=== PATIENT | female | born 1950 | race Caucasian/White ===

== ENCOUNTER → 2018-06-04 12:38 | Outpatient (CLI) | payer MEDICARE, SELFPAY ==
--- NOTE | 2018-06-04 | DI.MG.S_ITS ---
BILATERAL DIGITAL SCREENING MAMMOGRAM 3D/2D WITH CAD: 06/04/2018 CLINICAL: Routine screening. Comparison is made to exam dated: 05/10/2004 [facility]. The tissue of both breasts is heterogeneously dense. This may lower the sensitivity of mammography. Current study was also evaluated with a Computer Aided Detection (CAD) system. No significant masses, calcifications, or other findings are seen in either breast. There has been no significant interval change. IMPRESSION: NEGATIVE There is no mammographic evidence of malignancy. A 1 year screening mammogram is recommended. This exam was interpreted at Station ID: [id number]. NOTE: For mammograms, a report in lay terms will be sent to the patient. Approximately 15% of breast malignancies will not be visualized mammographically. In the management of a palpable breast mass, a negative mammogram must not discourage biopsy of a clinically suspicious lesion. Electronically Signed By: Wade peter/esme:06/04/2018 16:50:03 letter sent: Normal Exam ACR BI-RADS Category 1: Negative [id number]
== END ==
PROVIDERS: PCP Physician Assistant; Visit Provider Physician Assistant
DX: Z12.31 Encounter for screening mammogram for malignant neoplasm of breast (principal); M85.852 Other specified disorders of bone density and structure, left thigh; Z78.0 Asymptomatic menopausal state; Z85.6 Personal history of leukemia
CPT/HCPCS: 77063; 77067; 77080

== ENCOUNTER 2018-10-26 10:30 | Outpatient (RCR) | payer MEDICARE, SELFPAY ==
--- NOTE | 2018-05-20 17:00 | PT.OPPOC ---
Current Diagnoses Pain in right arm (05/20/18) Provider Visit Care Team Role Provider Type Marine Kraus PA-C Attending Provider Physician Primary Care Provider Specialty: Internal Medicine Address: [address] [place] [address], [facility] Email: Plan Of Care PT-OP-T Assessment and Plan Start: 05/20/18 09:52 Freq: Status: Active Protocol: Document 05/20/18 10:06 DONA (Rec: 05/20/18 10:27 DONA [id number]) Physical Therapy Assessment Rehab Potential Rehabilitation Potential Good Evaluation Complexity Number of Personal Factors/Comorbidities 1-2 Number of Body Systems Impaired 1-2 Clinical Presentation at Evaluation Stable Impairments Impairments Functional Activities Pain Posture ROM Soft Tissue Mobility Strength Goals Four Impairment Impaired shoulder strength Judicial Administrative Assistant Goal (LTG) Patient will exhibit shoulder flexors/abductors, rotators with at least 4/5 fo functional overhead reaching and lifting use. LTG Duration 4 wks Three Impairment Impaired shoulder Flexion/ABD/ ER ROM Jail Goal (LTG) Patient will exhibit normal shoulder ROM to improve functional mobility with no discomfort. LTG Duration 4 wks Two Impairment No HEP in place Jail Goal (LTG) Patient will learn and comply to HEP independently. LTG Duration 4 wks One Impairment Quich Dash UE functional scale 25 Judicial Administrative Assistant Goal (LTG) Patient will have Quick Dash results of less than 10 LTG Duration 4 wks Assessment Summary Assessment Pleasant 67 y/o F patient with a referring diagnosis of right arm pain. Today patient exhibits right shoulder LOM and weakness with tenderness over right scapular region. Specials tests reveals positive with Belly press and Lift off tests, Hawkin's, Empty can's and Yegarson's test. Patient also exhibit rounded and FWD head posture. Patient condition in my opinion is may be due to rotator cuff tendonitis. Due to patient shoulder dysfunction, patient unable to perform overhead movement and lifting. Patient would benefit with skilled PT to address the aforementioned issues. Physical Therapy Plan Frequency and Duration Frequency of Treatment 2x/Week Duration of Treatment 8 wks Plan of Care Start Date 05/20/18 Plan of Care End Date 07/15/18 Therapeutic Interventions Therapeutic Interventions Home Exercise Program Joint Mobilizations Manual Therapy Patient/Caregiver Education Self-Care/Home Management Soft Tissue Mobilization Taping Therapeutic Exercises Modalities Cold Pack/Ice Massage Electric Stimulation Hot Packs Ultrasound Next Visit Focus/Plan Next Note Type Treatment Note Next Visit Plan Provide HEP with images Plan of Care Dates Plan of Care Start Date 05/20/18 Plan of Care End Date 07/15/18 Please Sign and Return: I have reviewed this Plan of Care and certify that the skilled therapy services above are required to meet the patient?s needs. Physician Signature Date Printed Name and Credentials Clinical Instructor Signature Printed Name and Credentials
--- NOTE | 2018-05-20 17:00 | PT.OIE ---
Current Diagnoses Pain in right arm (05/20/18) Provider Visit Care Team Role Provider Type Marine Kraus PA-C Attending Provider Physician Primary Care Provider Specialty: Internal Medicine Address: [address] [place] [address], [facility] Email: Physical Therapy Initial Evaluation PT-OP-A Visit Information Start: 05/20/18 09:52 Freq: Status: Active Protocol: Document 05/20/18 10:06 EA (Rec: 05/20/18 10:27 EA [id number]) Out-Patient Physical Therapy Visit Information Visit Information Visit Type Initial Evaluation Visit Start Time 09:00 Visit Stop Time 09:35 Total Visit Minutes 35 Visit Number 1 Number of OCCUPATIONAL HEALTH PHYSIOTHERAPIST Visits 0 Evaluation Information Evaluation Date 05/20/18 PT-OP-B Current Condition Start: 05/20/18 09:52 Freq: Status: Active Protocol: Document 05/20/18 10:06 EA (Rec: 05/20/18 10:27 EA [id number]) Current Condition History of Current Condition Onset Date November 2016 Current Complaints Right shoulder/arm pain History of Current Condition 2017 of lifting and moving injury and had formal PT at on January 2017 which resolved by 90%. Right Shoulder arm pain re-occurs last August of 2017 with no known injury and managed pain with OTC pain medication and biofreeze. Episodes of noturnal pain whenever patient slept to right side. Prior Treatments and Tests Formal PT at : 2016 with similar condition. Future Testing and Treatments Planned Ongoing cancer treament monthly scheduled. Hepa B- ongoing treatment. Treatment Goals Patient/Caregiver Goals Patient wants to completely eliminate pain Patient would like to know more HEP to pevent the recurrence Prior Functional Status Baseline Function- ADL's Independent Baseline Function- Mobility Independent Baseline Function- Work/School Retired Current Functional Impairments (Reported) Functional Limitations- ADL's Indep but difficulty with right hand overhead and lifting motion Functional Limitations- Mobility/Gait Indep Functional Limitations- Work/School Retired Functional Limitations- Recreation/ unable due to pain Hobbies PT-OP-C Subjective Start: 05/20/18 09:52 Freq: Status: Active Protocol: Document 05/20/18 10:06 EA (Rec: 05/20/18 10:27 EA [id number]) OP-PT Subjective Patient Comments Patient Comments I need to help my right arm when im reaching my opposite shoulder and I can't fully reach my back due to pain. Patient Reported Progress Same Patient Questionnaires Quick Dash- Upper Extremity Quick Dash UE Score 25 Quick Dash UE Impairment 20 to 39% Impaired (Score 20- 39) PT-OP-E Functional Tests Start: 05/20/18 09:52 Freq: Status: Active Protocol: Document 05/20/18 10:06 EA (Rec: 05/20/18 10:27 EA [id number]) Functional Tests Apley's Scratch Test Action 1: The subject is instructed to touch the opposite shoulder with his/her hand. This motion checks Glenohumeral adduction, internal rotation , horizontal adduction and scapular protraction Action 2: The subject is instructed to place his/her arm overhead and reach behind the neck to touch his/her upper back. This motion checks Glenohumeral abduction, external rotation and scapular upward rotation and elevation. Action 3: The subject puts his/her hand on the lower back and reaches upward as far as possible. This motion checks glenohumeral adduction, internal rotation and scapular retraction with downward rotation Action 1- Left opposite scap Action 1- Right top of opposite shoulder Action 2- Left T4 Action 2- Right T1 Action 3- Left T6 Action 3- Right T2 PT-OP-F Manual Assessment Start: 05/20/18 09:52 Freq: Status: Active Protocol: Document 05/20/18 10:06 EA (Rec: 05/20/18 10:27 EA [id number]) Manual Assessments Soft Tissue Assessment Soft Tissue Mobility Assessment Pectorals, anterior capsule , neck flexors, traps, shoulder internal rotators tightness Joint Mobility Assessment Joint Mobility Assessment Hypo to right GH joint PT-OP-J Posture/Palpation/Skin Start: 05/20/18 09:52 Freq: Status: Active Protocol: Document 05/20/18 10:06 EA (Rec: 05/20/18 10:27 EA [id number]) Posture Evaluation Position Standing Evaluation View ant/lat Head/C-Spine Posture Forward Head Arm Posture (L) Internally Rotated (R) Internally Rotated Palpation Assessment Location One Palpation Location Right INFRA,SUPRA, anterior shoulder grade 2/4 tenderness Palpation Findings Soft Tissue Tightness Tenderness PT-OP-K Range of Motion Start: 05/20/18 09:52 Freq: Status: Active Protocol: Document 05/20/18 10:06 EA (Rec: 05/20/18 10:27 EA [id number]) Shoulder Goniometric Range of Motion Shoulder Measured in Degrees Right Active Testing Position Standing Flexion 165 Extension 60 Abduction 165 External Rotation at 90 degrees 70 Abduction Internal Rotation Behind Back (text) T12 PT-OP-L Special Tests Start: 05/20/18 09:52 Freq: Status: Active Protocol: Document 05/20/18 10:06 EA (Rec: 05/20/18 10:27 EA [id number]) Special Tests Shoulder Special Tests Elevation Impingement Test Results negative Drop Arm Rotator Cuff Test Results Negative Aguayo Facundo Impingement Test Results Positive Lift-Off Rotator Cuff Test Results positive Empty Can Test Results postive Belly Press Test Results positive PT-OP-M Strength Start: 05/20/18 09:52 Freq: Status: Active Protocol: Document 05/20/18 17:00 EA (Rec: 05/24/18 10:24 EA [id number]) Shoulder Strength Shoulder Manual Muscle Testing Right Flexion 4- Good- Extension 4- Good- Abduction (C5) 4- Good- Adduction 4 Good External Rotation 3+ Fair+ Internal Rotation 4- Good- PT-OP-Q Treatments Start: 05/20/18 09:52 Freq: Status: Active Protocol: Document 05/20/18 10:06 EA (Rec: 05/20/18 10:27 EA [id number]) Self-Care/Home Management Treatment Education Patient Education Body Mechanics Home Exercise Program Joint Protection Pain Management Posture PT-OP-T Assessment and Plan Start: 05/20/18 09:52 Freq: Status: Active Protocol: Document 05/20/18 10:06 EA (Rec: 05/20/18 10:27 EA [id number]) Physical Therapy Assessment Rehab Potential Rehabilitation Potential Good Evaluation Complexity Number of Personal Factors/Comorbidities 1-2 Number of Body Systems Impaired 1-2 Clinical Presentation at Evaluation Stable Impairments Impairments Functional Activities Pain Posture ROM Soft Tissue Mobility Strength Goals Four Impairment Impaired shoulder strength Assisted Goal (LTG) Patient will exhibit shoulder flexors/abductors, rotators with at least 4/5 fo functional overhead reaching and lifting use. LTG Duration 4 wks Three Impairment Impaired shoulder Flexion/ABD/ ER ROM Assisted Goal (LTG) Patient will exhibit normal shoulder ROM to improve functional mobility with no discomfort. LTG Duration 4 wks Two Impairment No HEP in place Bolt Sawyer Goal (LTG) Patient will learn and comply to HEP independently. LTG Duration 4 wks One Impairment Quich Dash UE functional scale 25 Assisted Goal (LTG) Patient will have Quick Dash results of less than 10 LTG Duration 4 wks Assessment Summary Assessment Pleasant 67 y/o F patient with a referring diagnosis of right arm pain. Today patient exhibits right shoulder LOM and weakness with tenderness over right scapular region. Specials tests reveals positive with Belly press and Lift off tests, Hawkin's, Empty can's and Yegarson's test. Patient also exhibit rounded and FWD head posture. Patient condition in my opinion is may be due to rotator cuff tendonitis. Due to patient shoulder dysfunction, patient unable to perform overhead movement and lifting. Patient would benefit with skilled PT to address the aforementioned issues. Physical Therapy Plan Frequency and Duration Frequency of Treatment 2x/Week Duration of Treatment 8 wks Plan of Care Start Date 05/20/18 Plan of Care End Date 07/15/18 Therapeutic Interventions Therapeutic Interventions Home Exercise Program Joint Mobilizations Manual Therapy Patient/Caregiver Education Self-Care/Home Management Soft Tissue Mobilization Taping Therapeutic Exercises Modalities Cold Pack/Ice Massage Electric Stimulation Hot Packs Ultrasound Next Visit Focus/Plan Next Note Type Treatment Note Next Visit Plan Provide HEP with images
--- NOTE | 2018-05-26 14:37 | PT.OTN ---
Current Diagnoses Pain in right arm (05/26/18) Physical Therapy Treatment Note PT-OP-A Visit Information Start: 05/20/18 09:52 Freq: Status: Active Protocol: Document 05/26/18 14:23 EA (Rec: 05/26/18 14:30 EA [id number]) Out-Patient Physical Therapy Visit Information Visit Information Visit Type Treatment Note Visit Start Time 13:45 Visit Stop Time 14:30 Total Visit Minutes 45 Visit Number 2 PT-OP-B Current Condition Start: 05/20/18 09:52 Freq: Status: Active Protocol: Document 05/20/18 10:06 EA (Rec: 05/20/18 10:27 EA [id number]) Current Condition History of Current Condition Onset Date November 2016 Current Complaints Right shoulder/arm pain History of Current Condition 2017 of lifting and moving injury and had formal PT at on January 2017 which resolved by 90%. Right Shoulder arm pain re-occurs last August of 2017 with no known injury and managed pain with OTC pain medication and biofreeze. Episodes of noturnal pain whenever patient slept to right side. Prior Treatments and Tests Formal PT at : 2016 with similar condition. Future Testing and Treatments Planned Ongoing cancer treament monthly scheduled. Hepa B- ongoing treatment. Treatment Goals Patient/Caregiver Goals Patient wants to completely eliminate pain Patient would like to know more HEP to pevent the recurrence Prior Functional Status Baseline Function- ADL's Independent Baseline Function- Mobility Independent Baseline Function- Work/School Retired Current Functional Impairments (Reported) Functional Limitations- ADL's Indep but difficulty with right hand overhead and lifting motion Functional Limitations- Mobility/Gait Indep Functional Limitations- Work/School Retired Functional Limitations- Recreation/ unable due to pain Hobbies PT-OP-C Subjective Start: 05/20/18 09:52 Freq: Status: Active Protocol: Document 05/26/18 14:23 EA (Rec: 05/26/18 14:30 EA [id number]) OP-PT Subjective Patient Comments Patient Comments Pt reports complaint with HEP and pain is quite a bit better . Patient Reported Progress Improving PT-OP-E Functional Tests Start: 05/20/18 09:52 Freq: Status: Active Protocol: Document 05/20/18 10:06 EA (Rec: 05/20/18 10:27 EA [id number]) Functional Tests Apley's Scratch Test Action 1: The subject is instructed to touch the opposite shoulder with his/her hand. This motion checks Glenohumeral adduction, internal rotation , horizontal adduction and scapular protraction Action 2: The subject is instructed to place his/her arm overhead and reach behind the neck to touch his/her upper back. This motion checks Glenohumeral abduction, external rotation and scapular upward rotation and elevation. Action 3: The subject puts his/her hand on the lower back and reaches upward as far as possible. This motion checks glenohumeral adduction, internal rotation and scapular retraction with downward rotation Action 1- Left opposite scap Action 1- Right top of opposite shoulder Action 2- Left T4 Action 2- Right T1 Action 3- Left T6 Action 3- Right T2 PT-OP-F Manual Assessment Start: 05/20/18 09:52 Freq: Status: Active Protocol: Document 05/20/18 10:06 EA (Rec: 05/20/18 10:27 EA [id number]) Manual Assessments Soft Tissue Assessment Soft Tissue Mobility Assessment Pectorals, anterior capsule , neck flexors, traps, shoulder internal rotators tightness Joint Mobility Assessment Joint Mobility Assessment Hypo to right GH joint PT-OP-J Posture/Palpation/Skin Start: 05/20/18 09:52 Freq: Status: Active Protocol: Document 05/20/18 10:06 EA (Rec: 05/20/18 10:27 EA [id number]) Posture Evaluation Position Standing Evaluation View ant/lat Head/C-Spine Posture Forward Head Arm Posture (L) Internally Rotated (R) Internally Rotated Palpation Assessment Location One Palpation Location Right INFRA,SUPRA, anterior shoulder grade 2/4 tenderness Palpation Findings Soft Tissue Tightness Tenderness PT-OP-K Range of Motion Start: 05/20/18 09:52 Freq: Status: Active Protocol: Document 05/20/18 10:06 EA (Rec: 05/20/18 10:27 EA [id number]) Shoulder Goniometric Range of Motion Shoulder Measured in Degrees Right Active Testing Position Standing Flexion 165 Extension 60 Abduction 165 External Rotation at 90 degrees 70 Abduction Internal Rotation Behind Back (text) T12 PT-OP-L Special Tests Start: 05/20/18 09:52 Freq: Status: Active Protocol: Document 05/20/18 10:06 EA (Rec: 05/20/18 10:27 EA [id number]) Special Tests Shoulder Special Tests Elevation Impingement Test Results negative Drop Arm Rotator Cuff Test Results Negative Aguayo Facundo Impingement Test Results Positive Lift-Off Rotator Cuff Test Results positive Empty Can Test Results postive Belly Press Test Results positive PT-OP-M Strength Start: 05/20/18 09:52 Freq: Status: Active Protocol: Document 05/20/18 17:00 EA (Rec: 05/24/18 10:24 EA [id number]) Shoulder Strength Shoulder Manual Muscle Testing Right Flexion 4- Good- Extension 4- Good- Abduction (C5) 4- Good- Adduction 4 Good External Rotation 3+ Fair+ Internal Rotation 4- Good- PT-OP-Q Treatments Start: 05/20/18 09:52 Freq: Status: Active Protocol: Document 05/26/18 14:23 EA (Rec: 05/26/18 14:30 EA [id number]) Therapeutic Exercises Supine Exercises 1 Supine Exercise Name T-bar flexion Reps/Minutes x 15 reps x 2 sets Sidelying Exercises 2 Sidelying Exercise Name Horiz ABD Reps/Minutes x 15 reps x 2 1 Sidelying Exercise Name Shoulder abduction Side right Reps/Minutes x 15 reps x 2 Standing Exercises 1 Standing Exercise Name T-bar extension Reps/Minutes x 15 reps Manual Therapy Treatment Soft Tissue Mobilization 1 Body Location Right shoulder Mobilization Type Cross-Friction Rolling Sustained Pressure Intensity/Depth Deep Body Position Supine Joint Mobilizations 1 Joint Right GH Grade III Self-Care/Home Management Treatment Education Patient Education Home Exercise Program Other Education HEP with images is provided and explained PT-OP-R Modalities Start: 05/20/18 09:52 Freq: Status: Active Protocol: Document 05/26/18 14:23 EA (Rec: 05/26/18 14:30 EA [id number]) Electric Stimulation Electric Stimulation Interferential Current (IFC) Body Location right shoulder Duration (Minutes) 15 Intensity 11 Patient Position Supine Combined With Heat/Cold Hot Pack Ultrasound Therapy Treatment Right Anterior Shoulder Treatment Duration (minutes) 5 Patient Position Supine Frequency Setting (mHz) 1 Mode Setting Continuous Intensity Setting (w/cm2) 1.2 PT-OP-T Assessment and Plan Start: 05/20/18 09:52 Freq: Status: Active Protocol: Document 05/26/18 14:23 EA (Rec: 05/26/18 14:30 EA [id number]) Physical Therapy Assessment Assessment Summary Assessment Tolerated treatment well. HEP explained and showed good understanding. Physical Therapy Plan Next Visit Focus/Plan Next Note Type Treatment Note Next Visit Plan Cont with current plan.
--- NOTE | 2018-06-03 10:39 | PT.OTN ---
Current Diagnoses Pain in right arm (06/03/18) Physical Therapy Treatment Note PT-OP-A Visit Information Start: 05/20/18 09:52 Freq: Status: Active Protocol: Document 06/03/18 09:47 SAK (Rec: 06/03/18 10:39 SAK [id number]) Out-Patient Physical Therapy Visit Information Visit Information Visit Type Treatment Note Visit Start Time 09:45 Visit Stop Time 10:45 Total Visit Minutes 60 Visit Number 3 PT-OP-B Current Condition Start: 05/20/18 09:52 Freq: Status: Active Protocol: Document 05/20/18 10:06 EA (Rec: 05/20/18 10:27 EA [id number]) Current Condition History of Current Condition Onset Date November 2016 Current Complaints Right shoulder/arm pain History of Current Condition 2017 of lifting and moving injury and had formal PT at on January 2017 which resolved by 90%. Right Shoulder arm pain re-occurs last August of 2017 with no known injury and managed pain with OTC pain medication and biofreeze. Episodes of noturnal pain whenever patient slept to right side. Prior Treatments and Tests Formal PT at : 2016 with similar condition. Future Testing and Treatments Planned Ongoing cancer treament monthly scheduled. Hepa B- ongoing treatment. Treatment Goals Patient/Caregiver Goals Patient wants to completely eliminate pain Patient would like to know more HEP to pevent the recurrence Prior Functional Status Baseline Function- ADL's Independent Baseline Function- Mobility Independent Baseline Function- Work/School Retired Current Functional Impairments (Reported) Functional Limitations- ADL's Indep but difficulty with right hand overhead and lifting motion Functional Limitations- Mobility/Gait Indep Functional Limitations- Work/School Retired Functional Limitations- Recreation/ unable due to pain Hobbies PT-OP-C Subjective Start: 05/20/18 09:52 Freq: Status: Active Protocol: Document 06/03/18 09:47 SAK (Rec: 06/03/18 10:39 SAK [id number]) OP-PT Subjective Patient Comments Patient Comments upset stomach this am due to possibly eating something that had been sitting out for too long Patient Reported Progress Improving PT-OP-E Functional Tests Start: 05/20/18 09:52 Freq: Status: Active Protocol: Document 05/20/18 10:06 EA (Rec: 05/20/18 10:27 EA [id number]) Functional Tests Apley's Scratch Test Action 1: The subject is instructed to touch the opposite shoulder with his/her hand. This motion checks Glenohumeral adduction, internal rotation , horizontal adduction and scapular protraction Action 2: The subject is instructed to place his/her arm overhead and reach behind the neck to touch his/her upper back. This motion checks Glenohumeral abduction, external rotation and scapular upward rotation and elevation. Action 3: The subject puts his/her hand on the lower back and reaches upward as far as possible. This motion checks glenohumeral adduction, internal rotation and scapular retraction with downward rotation Action 1- Left opposite scap Action 1- Right top of opposite shoulder Action 2- Left T4 Action 2- Right T1 Action 3- Left T6 Action 3- Right T2 PT-OP-F Manual Assessment Start: 05/20/18 09:52 Freq: Status: Active Protocol: Document 05/20/18 10:06 EA (Rec: 05/20/18 10:27 EA [id number]) Manual Assessments Soft Tissue Assessment Soft Tissue Mobility Assessment Pectorals, anterior capsule , neck flexors, traps, shoulder internal rotators tightness Joint Mobility Assessment Joint Mobility Assessment Hypo to right GH joint PT-OP-J Posture/Palpation/Skin Start: 05/20/18 09:52 Freq: Status: Active Protocol: Document 05/20/18 10:06 EA (Rec: 05/20/18 10:27 EA [id number]) Posture Evaluation Position Standing Evaluation View ant/lat Head/C-Spine Posture Forward Head Arm Posture (L) Internally Rotated (R) Internally Rotated Palpation Assessment Location One Palpation Location Right INFRA,SUPRA, anterior shoulder grade 2/4 tenderness Palpation Findings Soft Tissue Tightness Tenderness PT-OP-K Range of Motion Start: 05/20/18 09:52 Freq: Status: Active Protocol: Document 05/20/18 10:06 EA (Rec: 05/20/18 10:27 EA [id number]) Shoulder Goniometric Range of Motion Shoulder Measured in Degrees Right Active Testing Position Standing Flexion 165 Extension 60 Abduction 165 External Rotation at 90 degrees 70 Abduction Internal Rotation Behind Back (text) T12 PT-OP-L Special Tests Start: 05/20/18 09:52 Freq: Status: Active Protocol: Document 05/20/18 10:06 EA (Rec: 05/20/18 10:27 EA [id number]) Special Tests Shoulder Special Tests Elevation Impingement Test Results negative Drop Arm Rotator Cuff Test Results Negative Aguayo Facundo Impingement Test Results Positive Lift-Off Rotator Cuff Test Results positive Empty Can Test Results postive Belly Press Test Results positive PT-OP-M Strength Start: 05/20/18 09:52 Freq: Status: Active Protocol: Document 05/20/18 17:00 EA (Rec: 05/24/18 10:24 EA [id number]) Shoulder Strength Shoulder Manual Muscle Testing Right Flexion 4- Good- Extension 4- Good- Abduction (C5) 4- Good- Adduction 4 Good External Rotation 3+ Fair+ Internal Rotation 4- Good- PT-OP-Q Treatments Start: 05/20/18 09:52 Freq: Status: Active Protocol: Document 06/03/18 09:47 SAK (Rec: 06/03/18 10:39 SAK [id number]) Therapeutic Exercises Supine Exercises 1 Supine Exercise Name T-bar flexion Reps/Minutes x 15 reps x 2 sets Sidelying Exercises 2 Sidelying Exercise Name Horiz ABD Reps/Minutes x 15 reps x 2 1 Sidelying Exercise Name Shoulder abduction Side right Reps/Minutes x 15 reps x 2 Standing Exercises rhomboid stretch Reps/Minutes 2x 30 T-bar extension Reps/Minutes 10x UT and levator scap stretch Reps/Minutes 2x30 ea 1 Standing Exercise Name T-bar extension Reps/Minutes x 15 reps Manual Therapy Treatment Soft Tissue Mobilization 1 Body Location Right shoulder Mobilization Type Cross-Friction Rolling Sustained Pressure Intensity/Depth Deep Body Position Supine Joint Mobilizations 1 Joint Right GH Grade III Self-Care/Home Management Treatment Education Patient Education Home Exercise Program PT-OP-R Modalities Start: 05/20/18 09:52 Freq: Status: Active Protocol: Document 06/03/18 09:47 SAK (Rec: 06/03/18 10:39 SAK [id number]) Electric Stimulation Electric Stimulation Interferential Current (IFC) Body Location right shoulder Duration (Minutes) 15 Intensity 11 Patient Position Supine Combined With Heat/Cold Hot Pack Ultrasound Therapy Treatment Right Anterior Shoulder Treatment Duration (minutes) 5 Patient Position Supine Frequency Setting (mHz) 1 Mode Setting Continuous Intensity Setting (w/cm2) 1.2 PT-OP-T Assessment and Plan Start: 05/20/18 09:52 Freq: Status: Active Protocol: Document 06/03/18 09:47 HOME (Rec: 06/03/18 10:39 [facility] [id number]) Physical Therapy Assessment Goals Four Impairment Impaired shoulder strength Engineering Recruiter Goal (LTG) Patient will exhibit shoulder flexors/abductors, rotators with at least 4/5 fo functional overhead reaching and lifting use. LTG Duration 4 wks Three Impairment Impaired shoulder Flexion/ABD/ ER ROM Engineering Recruiter Goal (LTG) Patient will exhibit normal shoulder ROM to improve functional mobility with no discomfort. LTG Duration 4 wks Two Impairment No HEP in place Engineering Recruiter Goal (LTG) Patient will learn and comply to HEP independently. LTG Duration 4 wks One Impairment Quich Dash UE functional scale 25 Engineering Recruiter Goal (LTG) Patient will have Quick Dash results of less than 10 LTG Duration 4 wks Assessment Summary Assessment Decreasing pain, poor compliance to HEP but demonstrated improved understanding after performing today. Physical Therapy Plan Frequency and Duration Frequency of Treatment 2x/Week Duration of Treatment 8 wks Plan of Care Start Date 05/20/18 Plan of Care End Date 07/15/18 Therapeutic Interventions Therapeutic Interventions Home Exercise Program Joint Mobilizations Manual Therapy Patient/Caregiver Education Self-Care/Home Management Soft Tissue Mobilization Taping Therapeutic Exercises Modalities Cold Pack/Ice Massage Electric Stimulation Hot Packs Ultrasound Next Visit Focus/Plan Next Note Type Treatment Note Next Visit Plan Continue PT to decrease patient's right shoulder pain, improve her ROM, strength, and function.
--- NOTE | 2018-06-11 14:46 | PT.OTN ---
Current Diagnoses Pain in right arm (06/11/18) Physical Therapy Treatment Note PT-OP-A Visit Information Start: 05/20/18 09:52 Freq: Status: Active Protocol: Document 06/11/18 13:45 AMB (Rec: 06/11/18 13:58 AMB [id number]) Out-Patient Physical Therapy Visit Information Visit Information Visit Type Treatment Note Visit Start Time 09:45 Visit Stop Time 10:45 Total Visit Minutes 60 Visit Number 4 PT-OP-B Current Condition Start: 05/20/18 09:52 Freq: Status: Active Protocol: Document 05/20/18 10:06 EA (Rec: 05/20/18 10:27 EA [id number]) Current Condition History of Current Condition Onset Date November 2016 Current Complaints Right shoulder/arm pain History of Current Condition 2017 of lifting and moving injury and had formal PT at on January 2017 which resolved by 90%. Right Shoulder arm pain re-occurs last August of 2017 with no known injury and managed pain with OTC pain medication and biofreeze. Episodes of noturnal pain whenever patient slept to right side. Prior Treatments and Tests Formal PT at : 2016 with similar condition. Future Testing and Treatments Planned Ongoing cancer treament monthly scheduled. Hepa B- ongoing treatment. Treatment Goals Patient/Caregiver Goals Patient wants to completely eliminate pain Patient would like to know more HEP to pevent the recurrence Prior Functional Status Baseline Function- ADL's Independent Baseline Function- Mobility Independent Baseline Function- Work/School Retired Current Functional Impairments (Reported) Functional Limitations- ADL's Indep but difficulty with right hand overhead and lifting motion Functional Limitations- Mobility/Gait Indep Functional Limitations- Work/School Retired Functional Limitations- Recreation/ unable due to pain Hobbies PT-OP-C Subjective Start: 05/20/18 09:52 Freq: Status: Active Protocol: Document 06/11/18 13:45 AMB (Rec: 06/11/18 13:58 AMB [id number]) OP-PT Subjective Patient Comments Patient Comments Pt attends with her dog. [place] good after last appointment. PT-OP-E Functional Tests Start: 05/20/18 09:52 Freq: Status: Active Protocol: Document 05/20/18 10:06 EA (Rec: 05/20/18 10:27 EA [id number]) Functional Tests Silasey's Scratch Test Action 1: The subject is instructed to touch the opposite shoulder with his/her hand. This motion checks Glenohumeral adduction, internal rotation , horizontal adduction and scapular protraction Action 2: The subject is instructed to place his/her arm overhead and reach behind the neck to touch his/her upper back. This motion checks Glenohumeral abduction, external rotation and scapular upward rotation and elevation. Action 3: The subject puts his/her hand on the lower back and reaches upward as far as possible. This motion checks glenohumeral adduction, internal rotation and scapular retraction with downward rotation Action 1- Left opposite scap Action 1- Right top of opposite shoulder Action 2- Left T4 Action 2- Right T1 Action 3- Left T6 Action 3- Right T2 PT-OP-F Manual Assessment Start: 05/20/18 09:52 Freq: Status: Active Protocol: Document 05/20/18 10:06 EA (Rec: 05/20/18 10:27 EA [id number]) Manual Assessments Soft Tissue Assessment Soft Tissue Mobility Assessment Pectorals, anterior capsule , neck flexors, traps, shoulder internal rotators tightness Joint Mobility Assessment Joint Mobility Assessment Hypo to right GH joint PT-OP-J Posture/Palpation/Skin Start: 05/20/18 09:52 Freq: Status: Active Protocol: Document 05/20/18 10:06 EA (Rec: 05/20/18 10:27 EA [id number]) Posture Evaluation Position Standing Evaluation View ant/lat Head/C-Spine Posture Forward Head Arm Posture (L) Internally Rotated (R) Internally Rotated Palpation Assessment Location One Palpation Location Right INFRA,SUPRA, anterior shoulder grade 2/4 tenderness Palpation Findings Soft Tissue Tightness Tenderness PT-OP-K Range of Motion Start: 05/20/18 09:52 Freq: Status: Active Protocol: Document 05/20/18 10:06 EA (Rec: 05/20/18 10:27 EA [id number]) Shoulder Goniometric Range of Motion Shoulder Measured in Degrees Right Active Testing Position Standing Flexion 165 Extension 60 Abduction 165 External Rotation at 90 degrees 70 Abduction Internal Rotation Behind Back (text) T12 PT-OP-L Special Tests Start: 05/20/18 09:52 Freq: Status: Active Protocol: Document 05/20/18 10:06 EA (Rec: 05/20/18 10:27 EA [id number]) Special Tests Shoulder Special Tests Elevation Impingement Test Results negative Drop Arm Rotator Cuff Test Results Negative Aguayo Facundo Impingement Test Results Positive Lift-Off Rotator Cuff Test Results positive Empty Can Test Results postive Belly Press Test Results positive PT-OP-M Strength Start: 05/20/18 09:52 Freq: Status: Active Protocol: Document 05/20/18 17:00 EA (Rec: 05/24/18 10:24 EA [id number]) Shoulder Strength Shoulder Manual Muscle Testing Right Flexion 4- Good- Extension 4- Good- Abduction (C5) 4- Good- Adduction 4 Good External Rotation 3+ Fair+ Internal Rotation 4- Good- PT-OP-Q Treatments Start: 05/20/18 09:52 Freq: Status: Active Protocol: Document 06/11/18 13:45 AMB (Rec: 06/11/18 14:01 AMB [id number]) Therapeutic Exercises Sidelying Exercises 3 Sidelying Exercise Name ER Resistance 2# Reps/Minutes 10 2 Sidelying Exercise Name Horiz ABD Reps/Minutes x 15 reps x 2 1 Sidelying Exercise Name Shoulder abduction Side right Reps/Minutes x 15 reps x 2 Sitting Exercises 1 Sitting Exercise Name mary Comments flexion/abduction Standing Exercises UT and levator scap stretch Reps/Minutes 2x30 ea Manual Therapy Treatment Soft Tissue Mobilization 1 Body Location Right shoulder Mobilization Type Cross-Friction Rolling Sustained Pressure Intensity/Depth Deep Body Position Supine Joint Mobilizations 1 Joint Right GH Grade III PT-OP-R Modalities Start: 05/20/18 09:52 Freq: Status: Active Protocol: Document 06/11/18 14:16 AMB (Rec: 06/11/18 14:31 AMB [id number]) Electric Stimulation Electric Stimulation Interferential Current (IFC) Body Location right shoulder Duration (Minutes) 15 Intensity 11 Patient Position Supine Combined With Heat/Cold Hot Pack Ultrasound Therapy Treatment Right Anterior Shoulder Treatment Duration (minutes) 5 Patient Position Supine Frequency Setting (mHz) 1 Mode Setting Continuous Intensity Setting (w/cm2) 1.2 PT-OP-T Assessment and Plan Start: 05/20/18 09:52 Freq: Status: Active Protocol: Document 06/11/18 13:45 AMB (Rec: 06/11/18 14:42 AMB [id number]) Physical Therapy Assessment Assessment Summary Assessment Pt with low level of pain today, she was able to tolerate ther ex well, although did fatigue quickly. Physical Therapy Plan Next Visit Focus/Plan Next Note Type Treatment Note Next Visit Plan Continue PT to decrease patient's right shoulder pain, improve her ROM, strength, and function.
--- NOTE | 2018-06-22 15:12 | PT.OTN ---
Current Diagnoses Pain in right arm (06/22/18) Physical Therapy Treatment Note PT-OP-A Visit Information Start: 05/20/18 09:52 Freq: Status: Active Protocol: Document 06/22/18 13:44 EA (Rec: 06/22/18 13:48 EA [id number]) Out-Patient Physical Therapy Visit Information Visit Information Visit Type Treatment Note Visit Start Time 13:45 Visit Stop Time 14:30 Total Visit Minutes 45 Visit Number 5 PT-OP-B Current Condition Start: 05/20/18 09:52 Freq: Status: Active Protocol: Document 05/20/18 10:06 EA (Rec: 05/20/18 10:27 EA [id number]) Current Condition History of Current Condition Onset Date November 2016 Current Complaints Right shoulder/arm pain History of Current Condition 2017 of lifting and moving injury and had formal PT at on January 2017 which resolved by 90%. Right Shoulder arm pain re-occurs last August of 2017 with no known injury and managed pain with OTC pain medication and biofreeze. Episodes of noturnal pain whenever patient slept to right side. Prior Treatments and Tests Formal PT at : 2016 with similar condition. Future Testing and Treatments Planned Ongoing cancer treament monthly scheduled. Hepa B- ongoing treatment. Treatment Goals Patient/Caregiver Goals Patient wants to completely eliminate pain Patient would like to know more HEP to pevent the recurrence Prior Functional Status Baseline Function- ADL's Independent Baseline Function- Mobility Independent Baseline Function- Work/School Retired Current Functional Impairments (Reported) Functional Limitations- ADL's Indep but difficulty with right hand overhead and lifting motion Functional Limitations- Mobility/Gait Indep Functional Limitations- Work/School Retired Functional Limitations- Recreation/ unable due to pain Hobbies PT-OP-C Subjective Start: 05/20/18 09:52 Freq: Status: Active Protocol: Document 06/22/18 13:44 EA (Rec: 06/22/18 13:48 EA [id number]) OP-PT Subjective Patient Comments Patient Comments Pt reports pain frequency is decreased and she has been compliant with HEP. PT-OP-E Functional Tests Start: 05/20/18 09:52 Freq: Status: Active Protocol: Document 05/20/18 10:06 EA (Rec: 05/20/18 10:27 EA [id number]) Functional Tests Silasey's Scratch Test Action 1: The subject is instructed to touch the opposite shoulder with his/her hand. This motion checks Glenohumeral adduction, internal rotation , horizontal adduction and scapular protraction Action 2: The subject is instructed to place his/her arm overhead and reach behind the neck to touch his/her upper back. This motion checks Glenohumeral abduction, external rotation and scapular upward rotation and elevation. Action 3: The subject puts his/her hand on the lower back and reaches upward as far as possible. This motion checks glenohumeral adduction, internal rotation and scapular retraction with downward rotation Action 1- Left opposite scap Action 1- Right top of opposite shoulder Action 2- Left T4 Action 2- Right T1 Action 3- Left T6 Action 3- Right T2 PT-OP-F Manual Assessment Start: 05/20/18 09:52 Freq: Status: Active Protocol: Document 05/20/18 10:06 EA (Rec: 05/20/18 10:27 EA [id number]) Manual Assessments Soft Tissue Assessment Soft Tissue Mobility Assessment Pectorals, anterior capsule , neck flexors, traps, shoulder internal rotators tightness Joint Mobility Assessment Joint Mobility Assessment Hypo to right GH joint PT-OP-J Posture/Palpation/Skin Start: 05/20/18 09:52 Freq: Status: Active Protocol: Document 05/20/18 10:06 EA (Rec: 05/20/18 10:27 EA [id number]) Posture Evaluation Position Standing Evaluation View ant/lat Head/C-Spine Posture Forward Head Arm Posture (L) Internally Rotated (R) Internally Rotated Palpation Assessment Location One Palpation Location Right INFRA,SUPRA, anterior shoulder grade 2/4 tenderness Palpation Findings Soft Tissue Tightness Tenderness PT-OP-K Range of Motion Start: 05/20/18 09:52 Freq: Status: Active Protocol: Document 05/20/18 10:06 EA (Rec: 05/20/18 10:27 EA [id number]) Shoulder Goniometric Range of Motion Shoulder Measured in Degrees Right Active Testing Position Standing Flexion 165 Extension 60 Abduction 165 External Rotation at 90 degrees 70 Abduction Internal Rotation Behind Back (text) T12 PT-OP-L Special Tests Start: 05/20/18 09:52 Freq: Status: Active Protocol: Document 05/20/18 10:06 EA (Rec: 05/20/18 10:27 EA [id number]) Special Tests Shoulder Special Tests Elevation Impingement Test Results negative Drop Arm Rotator Cuff Test Results Negative Aguayo Facundo Impingement Test Results Positive Lift-Off Rotator Cuff Test Results positive Empty Can Test Results postive Belly Press Test Results positive PT-OP-M Strength Start: 05/20/18 09:52 Freq: Status: Active Protocol: Document 05/20/18 17:00 EA (Rec: 05/24/18 10:24 EA [id number]) Shoulder Strength Shoulder Manual Muscle Testing Right Flexion 4- Good- Extension 4- Good- Abduction (C5) 4- Good- Adduction 4 Good External Rotation 3+ Fair+ Internal Rotation 4- Good- PT-OP-Q Treatments Start: 05/20/18 09:52 Freq: Status: Active Protocol: Document 06/22/18 13:44 EA (Rec: 06/22/18 13:48 EA [id number]) Cardio Equipment Upper Body Ergometer (UBE) Duration (Minutes) 6 Height 4 Therapeutic Exercises Supine Exercises 1 Supine Exercise Name T-bar flexion Reps/Minutes x 15 reps x 2 sets Sidelying Exercises 3 Sidelying Exercise Name ER Resistance 2# Reps/Minutes 10 2 Sidelying Exercise Name Horiz ABD Reps/Minutes x 15 reps x 2 Standing Exercises T-bar extension Resistance 2# Reps/Minutes 10x 2 sets 1 Standing Exercise Name T-bar flexion Resistance 1# Reps/Minutes x 15 reps Manual Therapy Treatment Soft Tissue Mobilization 1 Body Location Right shoulder Mobilization Type Cross-Friction Rolling Sustained Pressure Intensity/Depth Deep Body Position Supine PT-OP-R Modalities Start: 05/20/18 09:52 Freq: Status: Active Protocol: Document 06/22/18 13:44 EA (Rec: 06/22/18 13:48 EA [id number]) Electric Stimulation Electric Stimulation Interferential Current (IFC) Body Location right shoulder Duration (Minutes) 15 Intensity 11 Patient Position Supine Combined With Heat/Cold Hot Pack PT-OP-T Assessment and Plan Start: 05/20/18 09:52 Freq: Status: Active Protocol: Document 06/22/18 13:44 EA (Rec: 06/22/18 13:48 EA [id number]) Physical Therapy Assessment Assessment Summary Assessment Tolerated treatment well; noted improved activity with no discomfort. patient is progressing well. Physical Therapy Plan Next Visit Focus/Plan Next Note Type Treatment Note Next Visit Plan Continue PT to decrease patient's right shoulder pain, improve her ROM, strength, and function.
--- NOTE | 2018-06-29 15:05 | PT.OTN ---
Current Diagnoses Pain in right arm (06/29/18) Physical Therapy Treatment Note PT-OP-A Visit Information Start: 05/20/18 09:52 Freq: Status: Active Protocol: Document 06/29/18 14:56 EA (Rec: 06/29/18 15:04 EA [id number]) Out-Patient Physical Therapy Visit Information Visit Information Visit Type Treatment Note Visit Start Time 13:45 Visit Stop Time 14:40 Total Visit Minutes 55 Visit Number 6 PT-OP-B Current Condition Start: 05/20/18 09:52 Freq: Status: Active Protocol: Document 05/20/18 10:06 EA (Rec: 05/20/18 10:27 EA [id number]) Current Condition History of Current Condition Onset Date November 2016 Current Complaints Right shoulder/arm pain History of Current Condition 2017 of lifting and moving injury and had formal PT at on January 2017 which resolved by 90%. Right Shoulder arm pain re-occurs last August of 2017 with no known injury and managed pain with OTC pain medication and biofreeze. Episodes of noturnal pain whenever patient slept to right side. Prior Treatments and Tests Formal PT at : 2016 with similar condition. Future Testing and Treatments Planned Ongoing cancer treament monthly scheduled. Hepa B- ongoing treatment. Treatment Goals Patient/Caregiver Goals Patient wants to completely eliminate pain Patient would like to know more HEP to pevent the recurrence Prior Functional Status Baseline Function- ADL's Independent Baseline Function- Mobility Independent Baseline Function- Work/School Retired Current Functional Impairments (Reported) Functional Limitations- ADL's Indep but difficulty with right hand overhead and lifting motion Functional Limitations- Mobility/Gait Indep Functional Limitations- Work/School Retired Functional Limitations- Recreation/ unable due to pain Hobbies PT-OP-C Subjective Start: 05/20/18 09:52 Freq: Status: Active Protocol: Document 06/29/18 14:56 EA (Rec: 06/29/18 15:04 EA [id number]) OP-PT Subjective Patient Comments Patient Comments Pt reports right shoulder is quite sore today; states she ahs not doing her HEP as much as she is mourning to her that just 6 days ago. PT-OP-E Functional Tests Start: 05/20/18 09:52 Freq: Status: Active Protocol: Document 05/20/18 10:06 EA (Rec: 05/20/18 10:27 EA [id number]) Functional Tests Apley's Scratch Test Action 1: The subject is instructed to touch the opposite shoulder with his/her hand. This motion checks Glenohumeral adduction, internal rotation , horizontal adduction and scapular protraction Action 2: The subject is instructed to place his/her arm overhead and reach behind the neck to touch his/her upper back. This motion checks Glenohumeral abduction, external rotation and scapular upward rotation and elevation. Action 3: The subject puts his/her hand on the lower back and reaches upward as far as possible. This motion checks glenohumeral adduction, internal rotation and scapular retraction with downward rotation Action 1- Left opposite scap Action 1- Right top of opposite shoulder Action 2- Left T4 Action 2- Right T1 Action 3- Left T6 Action 3- Right T2 PT-OP-F Manual Assessment Start: 05/20/18 09:52 Freq: Status: Active Protocol: Document 05/20/18 10:06 EA (Rec: 05/20/18 10:27 EA [id number]) Manual Assessments Soft Tissue Assessment Soft Tissue Mobility Assessment Pectorals, anterior capsule , neck flexors, traps, shoulder internal rotators tightness Joint Mobility Assessment Joint Mobility Assessment Hypo to right GH joint PT-OP-J Posture/Palpation/Skin Start: 05/20/18 09:52 Freq: Status: Active Protocol: Document 05/20/18 10:06 EA (Rec: 05/20/18 10:27 EA [id number]) Posture Evaluation Position Standing Evaluation View ant/lat Head/C-Spine Posture Forward Head Arm Posture (L) Internally Rotated (R) Internally Rotated Palpation Assessment Location One Palpation Location Right INFRA,SUPRA, anterior shoulder grade 2/4 tenderness Palpation Findings Soft Tissue Tightness Tenderness PT-OP-K Range of Motion Start: 05/20/18 09:52 Freq: Status: Active Protocol: Document 05/20/18 10:06 EA (Rec: 05/20/18 10:27 EA [id number]) Shoulder Goniometric Range of Motion Shoulder Measured in Degrees Right Active Testing Position Standing Flexion 165 Extension 60 Abduction 165 External Rotation at 90 degrees 70 Abduction Internal Rotation Behind Back (text) T12 PT-OP-L Special Tests Start: 05/20/18 09:52 Freq: Status: Active Protocol: Document 05/20/18 10:06 EA (Rec: 05/20/18 10:27 EA [id number]) Special Tests Shoulder Special Tests Elevation Impingement Test Results negative Drop Arm Rotator Cuff Test Results Negative Aguayo Facundo Impingement Test Results Positive Lift-Off Rotator Cuff Test Results positive Empty Can Test Results postive Belly Press Test Results positive PT-OP-M Strength Start: 05/20/18 09:52 Freq: Status: Active Protocol: Document 05/20/18 17:00 EA (Rec: 05/24/18 10:24 EA [id number]) Shoulder Strength Shoulder Manual Muscle Testing Right Flexion 4- Good- Extension 4- Good- Abduction (C5) 4- Good- Adduction 4 Good External Rotation 3+ Fair+ Internal Rotation 4- Good- PT-OP-Q Treatments Start: 05/20/18 09:52 Freq: Status: Active Protocol: Document 06/29/18 14:56 EA (Rec: 06/29/18 15:04 EA [id number]) Cardio Equipment Upper Body Ergometer (UBE) Duration (Minutes) 6 Height 4 Therapeutic Exercises Supine Exercises 2 Supine Exercise Name shoulder adductor stretch with scapular stab. Reps/Minutes x 30sh x 2 1 Supine Exercise Name T-bar flexion Resistance 2 lbs Reps/Minutes x 15 reps x 2 sets Sidelying Exercises 3 Sidelying Exercise Name ER Resistance 2# Reps/Minutes 10 2 Sidelying Exercise Name Horiz ABD Resistance 2 lbs Reps/Minutes x 15 reps x 2 Sitting Exercises 1 Sitting Exercise Name Shoulder flexion, press, abduction Resistance 2 lbs Reps/Minutes x 12 reps Standing Exercises T-bar extension Resistance 2# Reps/Minutes 10x 2 sets UT and levator scap stretch Reps/Minutes 2x30 ea 1 Standing Exercise Name T-bar flexion Resistance 1# Reps/Minutes x 15 reps Manual Therapy Treatment Soft Tissue Mobilization 1 Body Location Right shoulder Mobilization Type Cross-Friction Rolling Sustained Pressure Intensity/Depth Deep Body Position Supine PT-OP-R Modalities Start: 05/20/18 09:52 Freq: Status: Active Protocol: Document 06/29/18 14:56 EA (Rec: 06/29/18 15:04 EA [id number]) Electric Stimulation Electric Stimulation Interferential Current (IFC) Body Location right shoulder Duration (Minutes) 15 Intensity 11 Patient Position Supine Combined With Heat/Cold Hot Pack PT-OP-T Assessment and Plan Start: 05/20/18 09:52 Freq: Status: Active Protocol: Document 06/29/18 14:56 EA (Rec: 06/29/18 15:04 EA [id number]) Physical Therapy Assessment Assessment Summary Assessment Shoulder adductor tightness noted. Patient tolerated sitted shoulder exercises mild shoulder substitution. Physical Therapy Plan Next Visit Focus/Plan Next Note Type Treatment Note Next Visit Plan Stretch shoulder adductors
--- NOTE | 2018-07-06 14:03 | PT.OTN ---
Current Diagnoses Pain in right arm (07/06/18) Physical Therapy Treatment Note PT-OP-A Visit Information Start: 05/20/18 09:52 Freq: Status: Active Protocol: Document 07/06/18 13:53 EA (Rec: 07/06/18 14:03 EA [id number]) Out-Patient Physical Therapy Visit Information Visit Information Visit Type Treatment Note Visit Start Time 13:00 Visit Stop Time 13:45 Total Visit Minutes 45 Visit Number 6 PT-OP-B Current Condition Start: 05/20/18 09:52 Freq: Status: Active Protocol: Document 05/20/18 10:06 EA (Rec: 05/20/18 10:27 EA [id number]) Current Condition History of Current Condition Onset Date November 2016 Current Complaints Right shoulder/arm pain History of Current Condition 2017 of lifting and moving injury and had formal PT at on January 2017 which resolved by 90%. Right Shoulder arm pain re-occurs last August of 2017 with no known injury and managed pain with OTC pain medication and biofreeze. Episodes of noturnal pain whenever patient slept to right side. Prior Treatments and Tests Formal PT at : 2016 with similar condition. Future Testing and Treatments Planned Ongoing cancer treament monthly scheduled. Hepa B- ongoing treatment. Treatment Goals Patient/Caregiver Goals Patient wants to completely eliminate pain Patient would like to know more HEP to pevent the recurrence Prior Functional Status Baseline Function- ADL's Independent Baseline Function- Mobility Independent Baseline Function- Work/School Retired Current Functional Impairments (Reported) Functional Limitations- ADL's Indep but difficulty with right hand overhead and lifting motion Functional Limitations- Mobility/Gait Indep Functional Limitations- Work/School Retired Functional Limitations- Recreation/ unable due to pain Hobbies PT-OP-C Subjective Start: 05/20/18 09:52 Freq: Status: Active Protocol: Document 07/06/18 13:53 EA (Rec: 07/06/18 14:03 EA [id number]) OP-PT Subjective Patient Comments Patient Comments Pt reports very mild discomfort only when shoulder is dangled on the cahir without armrest; states unable to perform HEP. PT-OP-E Functional Tests Start: 05/20/18 09:52 Freq: Status: Active Protocol: Document 05/20/18 10:06 EA (Rec: 05/20/18 10:27 EA [id number]) Functional Tests Apley's Scratch Test Action 1: The subject is instructed to touch the opposite shoulder with his/her hand. This motion checks Glenohumeral adduction, internal rotation , horizontal adduction and scapular protraction Action 2: The subject is instructed to place his/her arm overhead and reach behind the neck to touch his/her upper back. This motion checks Glenohumeral abduction, external rotation and scapular upward rotation and elevation. Action 3: The subject puts his/her hand on the lower back and reaches upward as far as possible. This motion checks glenohumeral adduction, internal rotation and scapular retraction with downward rotation Action 1- Left opposite scap Action 1- Right top of opposite shoulder Action 2- Left T4 Action 2- Right T1 Action 3- Left T6 Action 3- Right T2 PT-OP-F Manual Assessment Start: 05/20/18 09:52 Freq: Status: Active Protocol: Document 05/20/18 10:06 EA (Rec: 05/20/18 10:27 EA [id number]) Manual Assessments Soft Tissue Assessment Soft Tissue Mobility Assessment Pectorals, anterior capsule , neck flexors, traps, shoulder internal rotators tightness Joint Mobility Assessment Joint Mobility Assessment Hypo to right GH joint PT-OP-J Posture/Palpation/Skin Start: 05/20/18 09:52 Freq: Status: Active Protocol: Document 05/20/18 10:06 EA (Rec: 05/20/18 10:27 EA [id number]) Posture Evaluation Position Standing Evaluation View ant/lat Head/C-Spine Posture Forward Head Arm Posture (L) Internally Rotated (R) Internally Rotated Palpation Assessment Location One Palpation Location Right INFRA,SUPRA, anterior shoulder grade 2/4 tenderness Palpation Findings Soft Tissue Tightness Tenderness PT-OP-K Range of Motion Start: 05/20/18 09:52 Freq: Status: Active Protocol: Document 05/20/18 10:06 EA (Rec: 05/20/18 10:27 EA [id number]) Shoulder Goniometric Range of Motion Shoulder Measured in Degrees Right Active Testing Position Standing Flexion 165 Extension 60 Abduction 165 External Rotation at 90 degrees 70 Abduction Internal Rotation Behind Back (text) T12 PT-OP-L Special Tests Start: 05/20/18 09:52 Freq: Status: Active Protocol: Document 05/20/18 10:06 EA (Rec: 05/20/18 10:27 EA [id number]) Special Tests Shoulder Special Tests Elevation Impingement Test Results negative Drop Arm Rotator Cuff Test Results Negative Aguayo Facundo Impingement Test Results Positive Lift-Off Rotator Cuff Test Results positive Empty Can Test Results postive Belly Press Test Results positive PT-OP-M Strength Start: 05/20/18 09:52 Freq: Status: Active Protocol: Document 05/20/18 17:00 EA (Rec: 05/24/18 10:24 EA [id number]) Shoulder Strength Shoulder Manual Muscle Testing Right Flexion 4- Good- Extension 4- Good- Abduction (C5) 4- Good- Adduction 4 Good External Rotation 3+ Fair+ Internal Rotation 4- Good- PT-OP-Q Treatments Start: 05/20/18 09:52 Freq: Status: Active Protocol: Document 07/06/18 13:53 EA (Rec: 07/06/18 14:03 EA [id number]) Cardio Equipment Upper Body Ergometer (UBE) Duration (Minutes) 6 Height 4 Therapeutic Exercises Supine Exercises 2 Supine Exercise Name Shoulder Adductor passive stretch Reps/Minutes x 30sh x 2 Sidelying Exercises 3 Sidelying Exercise Name ER Resistance 2# Reps/Minutes 10 2 Sidelying Exercise Name Horiz ABD Resistance 2 lbs Reps/Minutes x 15 reps x 2 Standing Exercises 3 Standing Exercise Name DB side lateral raises Resistance 2 lbs Reps/Minutes x 12 reps 2 Standing Exercise Name T-bar shoulder press Resistance 2 lbs Reps/Minutes x 12 reps x 2 rhomboid stretch Reps/Minutes 2x 30 T-bar extension Resistance 2# Reps/Minutes 10x 2 sets 1 Standing Exercise Name T-bar flexion Resistance 2# Reps/Minutes x 15 reps Comments wall posture Manual Therapy Treatment Soft Tissue Mobilization 1 Body Location Right shoulder Mobilization Type Cross-Friction Rolling Sustained Pressure Intensity/Depth Deep Body Position Supine PT-OP-R Modalities Start: 05/20/18 09:52 Freq: Status: Active Protocol: Document 07/06/18 13:53 EA (Rec: 07/06/18 14:03 EA [id number]) Hot Pack/Cold Pack Treatment Hot Pack Location right shoulder Patient Position Supine Treatment Duration (minutes) 10 Patient Tolerance Good PT-OP-T Assessment and Plan Start: 05/20/18 09:52 Freq: Status: Active Protocol: Document 07/06/18 13:53 EA (Rec: 07/06/18 14:03 EA [id number]) Physical Therapy Assessment Assessment Summary Assessment Pt exhibits no discomfort with all shoulder exercises today with minimal resistance. Full ROM noted without shoulder compensatory motion. Patient is progressing well. Physical Therapy Plan Next Visit Focus/Plan Next Note Type Treatment Note Next Visit Plan Stretch shoulder adductors
--- NOTE | 2018-07-27 17:25 | PT.OPPOC ---
Current Diagnoses Pain in right arm (07/27/18) Provider Visit Care Team Role Provider Type Marine Kraus PA-C Attending Provider Physician Primary Care Provider Specialty: Internal Medicine Address: [address] [place] [address], [id number] Email: Plan Of Care PT-OP-T Assessment and Plan Start: 05/20/18 09:52 Freq: Status: Active Protocol: Document 07/27/18 13:08 EA (Rec: 07/27/18 13:44 EA [id number]) Physical Therapy Assessment Impairments Impairments Functional Activities Pain Posture ROM Soft Tissue Mobility Strength Goals Four Impairment Impaired shoulder strength Residential Goal (LTG) Patient will exhibit shoulder flexors/abductors, rotators with at least 4/5 fo functional overhead reaching and lifting use. LTG Duration 4 wks (improving) Three Impairment Impaired shoulder Flexion/ABD/ ER ROM Residential Goal (LTG) Patient will exhibit normal shoulder ROM to improve functional mobility with no discomfort. LTG Duration 4 wks Two Impairment No HEP in place Residential Goal (LTG) Patient will learn and comply to HEP independently. LTG Duration goal reached One Impairment Quich Dash UE functional scale 25 Residential Goal (LTG) Patient will have Quick Dash results of less than 10 LTG Duration 4 wks (progressing well) Progress Towards Goals Progress Towards Goals Progressing Toward Goals Assessment Summary Assessment Patient exhibited improved R shoulder ROM and strength. slight posture improvement but noted improved awareness. Overall function is improving and patient will cont. to benefit with skilled PT to reach highest function. Physical Therapy Plan Frequency and Duration Frequency of Treatment 1x/Week Duration of Treatment 6 wks Plan of Care Start Date 07/27/18 Plan of Care End Date 09/07/18 Therapeutic Interventions Therapeutic Interventions Home Exercise Program Joint Mobilizations Manual Therapy Patient/Caregiver Education Self-Care/Home Management Soft Tissue Mobilization Taping Therapeutic Activities Modalities Cold Pack/Ice Massage Electric Stimulation Hot Packs Ultrasound Next Visit Focus/Plan Next Note Type Treatment Note Next Visit Plan Progress as tolerated. Plan of Care Dates Plan of Care Start Date 07/27/18 Plan of Care End Date 09/07/18 Please Sign and Return: I have reviewed this Plan of Care and certify that the skilled therapy services above are required to meet the patient?s needs. Physician Signature Date Printed Name and Credentials Clinical Instructor Signature Printed Name and Credentials
--- NOTE | 2018-07-27 17:25 | PT.OTRE ---
Current Diagnoses Pain in right arm (07/27/18) Provider Visit Care Team Role Provider Type Marine Kraus PA-C Attending Provider Physician Primary Care Provider Specialty: Internal Medicine Address: [address] [place] [address], [facility] Email: Physical Therapy Re-Evaluation PT-OP-A Visit Information Start: 05/20/18 09:52 Freq: Status: Active Protocol: Document 07/27/18 13:08 EA (Rec: 07/27/18 13:44 EA [id number]) Out-Patient Physical Therapy Visit Information Visit Information Visit Type Treatment Note Visit Note Re-eval performed to this date Visit Start Time 12:30 Visit Stop Time 13:15 Total Visit Minutes 45 Visit Number 8 PT-OP-B Current Condition Start: 05/20/18 09:52 Freq: Status: Active Protocol: Document 05/20/18 10:06 EA (Rec: 05/20/18 10:27 EA [id number]) Current Condition History of Current Condition Onset Date November 2016 Current Complaints Right shoulder/arm pain History of Current Condition 2017 of lifting and moving injury and had formal PT at on January 2017 which resolved by 90%. Right Shoulder arm pain re-occurs last August of 2017 with no known injury and managed pain with OTC pain medication and biofreeze. Episodes of noturnal pain whenever patient slept to right side. Prior Treatments and Tests Formal PT at : 2016 with similar condition. Future Testing and Treatments Planned Ongoing cancer treament monthly scheduled. Hepa B- ongoing treatment. Treatment Goals Patient/Caregiver Goals Patient wants to completely eliminate pain Patient would like to know more HEP to pevent the recurrence Prior Functional Status Baseline Function- ADL's Independent Baseline Function- Mobility Independent Baseline Function- Work/School Retired Current Functional Impairments (Reported) Functional Limitations- ADL's Indep but difficulty with right hand overhead and lifting motion Functional Limitations- Mobility/Gait Indep Functional Limitations- Work/School Retired Functional Limitations- Recreation/ unable due to pain Hobbies PT-OP-C Subjective Start: 05/20/18 09:52 Freq: Status: Active Protocol: Document 07/27/18 13:08 EA (Rec: 07/27/18 13:44 EA [id number]) OP-PT Subjective Patient Comments Patient Comments Pt reports unable to come last time due to her and got sick after that; states right shoulder has occasional pain but functional and is improving. PT-OP-E Functional Tests Start: 05/20/18 09:52 Freq: Status: Active Protocol: Document 05/20/18 10:06 EA (Rec: 05/20/18 10:27 EA [id number]) Functional Tests Apley's Scratch Test Action 1: The subject is instructed to touch the opposite shoulder with his/her hand. This motion checks Glenohumeral adduction, internal rotation , horizontal adduction and scapular protraction Action 2: The subject is instructed to place his/her arm overhead and reach behind the neck to touch his/her upper back. This motion checks Glenohumeral abduction, external rotation and scapular upward rotation and elevation. Action 3: The subject puts his/her hand on the lower back and reaches upward as far as possible. This motion checks glenohumeral adduction, internal rotation and scapular retraction with downward rotation Action 1- Left opposite scap Action 1- Right top of opposite shoulder Action 2- Left T4 Action 2- Right T1 Action 3- Left T6 Action 3- Right T2 PT-OP-F Manual Assessment Start: 05/20/18 09:52 Freq: Status: Active Protocol: Document 05/20/18 10:06 EA (Rec: 05/20/18 10:27 EA [id number]) Manual Assessments Soft Tissue Assessment Soft Tissue Mobility Assessment Pectorals, anterior capsule , neck flexors, traps, shoulder internal rotators tightness Joint Mobility Assessment Joint Mobility Assessment Hypo to right GH joint PT-OP-J Posture/Palpation/Skin Start: 05/20/18 09:52 Freq: Status: Active Protocol: Document 05/20/18 10:06 EA (Rec: 05/20/18 10:27 EA [id number]) Posture Evaluation Position Standing Evaluation View ant/lat Head/C-Spine Posture Forward Head Arm Posture (L) Internally Rotated (R) Internally Rotated Palpation Assessment Location One Palpation Location Right INFRA,SUPRA, anterior shoulder grade 2/4 tenderness Palpation Findings Soft Tissue Tightness Tenderness PT-OP-K Range of Motion Start: 05/20/18 09:52 Freq: Status: Active Protocol: Document 07/27/18 17:25 EA (Rec: 07/29/18 13:26 EA [id number]) Shoulder Goniometric Range of Motion Shoulder Measured in Degrees Right Active Testing Position Standing Flexion 170 Extension 60 Abduction 170 External Rotation at 90 degrees 75 Abduction Internal Rotation Behind Back (text) T11 PT-OP-L Special Tests Start: 05/20/18 09:52 Freq: Status: Active Protocol: Document 05/20/18 10:06 EA (Rec: 05/20/18 10:27 EA [id number]) Special Tests Shoulder Special Tests Elevation Impingement Test Results negative Drop Arm Rotator Cuff Test Results Negative Aguayo Facundo Impingement Test Results Positive Lift-Off Rotator Cuff Test Results positive Empty Can Test Results postive Belly Press Test Results positive PT-OP-M Strength Start: 05/20/18 09:52 Freq: Status: Active Protocol: Document 07/27/18 17:25 EA (Rec: 07/29/18 13:26 EA [id number]) Shoulder Strength Shoulder Manual Muscle Testing Right Flexion 4 Good Extension 4 Good Abduction (C5) 4 Good Adduction 4+ Good+ External Rotation 3+ Fair+ Internal Rotation 4 Good PT-OP-Q Treatments Start: 05/20/18 09:52 Freq: Status: Active Protocol: Document 07/27/18 13:08 EA (Rec: 07/27/18 13:44 EA [id number]) Cardio Equipment Upper Body Ergometer (UBE) Duration (Minutes) 6 Height 4 Gym Equipment Cable Column (Body Solid) Rows Resistance 20# Reps/Time 15 x 2 sets Therapeutic Exercises Supine Exercises 3 Supine Exercise Name D1,D2 pattern Side right Resistance 1# AW Reps/Minutes x 15 reps Sidelying Exercises 3 Sidelying Exercise Name ER Resistance 2# Reps/Minutes 10 2 Sidelying Exercise Name Horiz ABD Resistance 2 lbs Reps/Minutes x 15 reps x 2 1 Sidelying Exercise Name Shoulder abduction Side right Reps/Minutes x 15 reps x 2 Sitting Exercises 1 Sitting Exercise Name Shoulder flexion, press, abduction Resistance 2 lbs Reps/Minutes x 12 reps Standing Exercises 3 Standing Exercise Name DB side lateral raises Resistance 2 lbs Reps/Minutes x 12 reps 2 Standing Exercise Name T-bar shoulder press Resistance 2 lbs Reps/Minutes x 12 reps x 2 rhomboid stretch Reps/Minutes 2x 30 T-bar extension Resistance 2# Reps/Minutes 10x 2 sets UT and levator scap stretch Reps/Minutes 2x30 ea 1 Standing Exercise Name T-bar flexion Resistance 2# Reps/Minutes x 15 reps Comments wall posture PT-OP-R Modalities Start: 05/20/18 09:52 Freq: Status: Active Protocol: Document 07/27/18 13:08 EA (Rec: 07/27/18 13:44 EA [id number]) Hot Pack/Cold Pack Treatment Hot Pack Location right shoulder Patient Position Supine Treatment Duration (minutes) 10 Patient Tolerance Good PT-OP-T Assessment and Plan Start: 05/20/18 09:52 Freq: Status: Active Protocol: Document 07/27/18 13:08 EA (Rec: 07/27/18 13:44 EA [id number]) Physical Therapy Assessment Impairments Impairments Functional Activities Pain Posture ROM Soft Tissue Mobility Strength Goals Four Impairment Impaired shoulder strength [employer] Goal (LTG) Patient will exhibit shoulder flexors/abductors, rotators with at least 4/5 fo functional overhead reaching and lifting use. LTG Duration 4 wks (improving) Three Impairment Impaired shoulder Flexion/ABD/ ER ROM Custodial Goal (LTG) Patient will exhibit normal shoulder ROM to improve functional mobility with no discomfort. LTG Duration 4 wks Two Impairment No HEP in place [employer] Control Officer Goal (LTG) Patient will learn and comply to HEP independently. LTG Duration goal reached One Impairment Quich Dash UE functional scale 25 Forest Fire Control Officer Goal (LTG) Patient will have Quick Dash results of less than 10 LTG Duration 4 wks (progressing well) Progress Towards Goals Progress Towards Goals Progressing Toward Goals Assessment Summary Assessment Patient exhibited improved R shoulder ROM and strength. slight posture improvement but noted improved awareness. Overall function is improving and patient will cont. to benefit with skilled PT to reach highest function. Physical Therapy Plan Frequency and Duration Frequency of Treatment 1x/Week Duration of Treatment 6 wks Plan of Care Start Date 07/27/18 Plan of Care End Date 09/07/18 Therapeutic Interventions Therapeutic Interventions Home Exercise Program Joint Mobilizations Manual Therapy Patient/Caregiver Education Self-Care/Home Management Soft Tissue Mobilization Taping Therapeutic Activities Modalities Cold Pack/Ice Massage Electric Stimulation Hot Packs Ultrasound Next Visit Focus/Plan Next Note Type Treatment Note Next Visit Plan Progress as tolerated.
--- NOTE | 2018-08-03 16:55 | PT.OTN ---
Current Diagnoses Pain in right arm (08/03/18) Physical Therapy Treatment Note PT-OP-A Visit Information Start: 05/20/18 09:52 Freq: Status: Active Protocol: Document 08/03/18 16:35 EA (Rec: 08/03/18 16:41 EA [id number]) Out-Patient Physical Therapy Visit Information Visit Information Visit Type Treatment Note Visit Start Time 13:45 Visit Stop Time 14:40 Total Visit Minutes 55 Visit Number 9 PT-OP-B Current Condition Start: 05/20/18 09:52 Freq: Status: Active Protocol: Document 05/20/18 10:06 EA (Rec: 05/20/18 10:27 EA [id number]) Current Condition History of Current Condition Onset Date November 2016 Current Complaints Right shoulder/arm pain History of Current Condition 2017 of lifting and moving injury and had formal PT at on January 2017 which resolved by 90%. Right Shoulder arm pain re-occurs last August of 2017 with no known injury and managed pain with OTC pain medication and biofreeze. Episodes of noturnal pain whenever patient slept to right side. Prior Treatments and Tests Formal PT at : 2016 with similar condition. Future Testing and Treatments Planned Ongoing cancer treament monthly scheduled. Hepa B- ongoing treatment. Treatment Goals Patient/Caregiver Goals Patient wants to completely eliminate pain Patient would like to know more HEP to pevent the recurrence Prior Functional Status Baseline Function- ADL's Independent Baseline Function- Mobility Independent Baseline Function- Work/School Retired Current Functional Impairments (Reported) Functional Limitations- ADL's Indep but difficulty with right hand overhead and lifting motion Functional Limitations- Mobility/Gait Indep Functional Limitations- Work/School Retired Functional Limitations- Recreation/ unable due to pain Hobbies PT-OP-C Subjective Start: 05/20/18 09:52 Freq: Status: Active Protocol: Document 08/03/18 16:35 EA (Rec: 08/03/18 16:41 EA [id number]) OP-PT Subjective Patient Comments Patient Comments Pt reports left shoulder is quite sore today after doing home overhead activities; states compliant with HEP. PT-OP-E Functional Tests Start: 05/20/18 09:52 Freq: Status: Active Protocol: Document 05/20/18 10:06 EA (Rec: 05/20/18 10:27 EA [id number]) Functional Tests Apley's Scratch Test Action 1: The subject is instructed to touch the opposite shoulder with his/her hand. This motion checks Glenohumeral adduction, internal rotation , horizontal adduction and scapular protraction Action 2: The subject is instructed to place his/her arm overhead and reach behind the neck to touch his/her upper back. This motion checks Glenohumeral abduction, external rotation and scapular upward rotation and elevation. Action 3: The subject puts his/her hand on the lower back and reaches upward as far as possible. This motion checks glenohumeral adduction, internal rotation and scapular retraction with downward rotation Action 1- Left opposite scap Action 1- Right top of opposite shoulder Action 2- Left T4 Action 2- Right T1 Action 3- Left T6 Action 3- Right T2 PT-OP-F Manual Assessment Start: 05/20/18 09:52 Freq: Status: Active Protocol: Document 05/20/18 10:06 EA (Rec: 05/20/18 10:27 EA [id number]) Manual Assessments Soft Tissue Assessment Soft Tissue Mobility Assessment Pectorals, anterior capsule , neck flexors, traps, shoulder internal rotators tightness Joint Mobility Assessment Joint Mobility Assessment Hypo to right GH joint PT-OP-J Posture/Palpation/Skin Start: 05/20/18 09:52 Freq: Status: Active Protocol: Document 05/20/18 10:06 EA (Rec: 05/20/18 10:27 EA [id number]) Posture Evaluation Position Standing Evaluation View ant/lat Head/C-Spine Posture Forward Head Arm Posture (L) Internally Rotated (R) Internally Rotated Palpation Assessment Location One Palpation Location Right INFRA,SUPRA, anterior shoulder grade 2/4 tenderness Palpation Findings Soft Tissue Tightness Tenderness PT-OP-K Range of Motion Start: 05/20/18 09:52 Freq: Status: Active Protocol: Document 07/27/18 17:25 EA (Rec: 07/29/18 13:26 EA [id number]) Shoulder Goniometric Range of Motion Shoulder Measured in Degrees Right Active Testing Position Standing Flexion 170 Extension 60 Abduction 170 External Rotation at 90 degrees 75 Abduction Internal Rotation Behind Back (text) T11 PT-OP-L Special Tests Start: 05/20/18 09:52 Freq: Status: Active Protocol: Document 05/20/18 10:06 EA (Rec: 05/20/18 10:27 EA [id number]) Special Tests Shoulder Special Tests Elevation Impingement Test Results negative Drop Arm Rotator Cuff Test Results Negative Aguayo Facundo Impingement Test Results Positive Lift-Off Rotator Cuff Test Results positive Empty Can Test Results postive Belly Press Test Results positive PT-OP-M Strength Start: 05/20/18 09:52 Freq: Status: Active Protocol: Document 07/27/18 17:25 EA (Rec: 07/29/18 13:26 EA [id number]) Shoulder Strength Shoulder Manual Muscle Testing Right Flexion 4 Good Extension 4 Good Abduction (C5) 4 Good Adduction 4+ Good+ External Rotation 3+ Fair+ Internal Rotation 4 Good PT-OP-Q Treatments Start: 05/20/18 09:52 Freq: Status: Active Protocol: Document 08/03/18 16:35 EA (Rec: 08/03/18 16:41 EA [id number]) Cardio Equipment Upper Body Ergometer (UBE) Duration (Minutes) 6 Height 4 Gym Equipment Cable Column (Body Solid) Rows Resistance 20# Reps/Time 15 x 2 sets Therapeutic Exercises Supine Exercises 3 Supine Exercise Name D1,D2 pattern Side right Resistance 2# AW Reps/Minutes x 15 reps Sidelying Exercises 3 Sidelying Exercise Name ER Resistance 2# Reps/Minutes 10 2 Sidelying Exercise Name Horiz ABD Resistance 2 lbs Reps/Minutes x 15 reps x 2 Standing Exercises 3 Standing Exercise Name DB side lateral raises Resistance 2 lbs Reps/Minutes x 12 reps x 2 2 Standing Exercise Name T-bar shoulder press Resistance 2 lbs Reps/Minutes x 12 reps x 2 T-bar extension Resistance 4# Reps/Minutes 10x 2 sets UT and levator scap stretch Reps/Minutes 2x30 ea 1 Standing Exercise Name T-bar flexion Resistance 2# Reps/Minutes x 15 reps Comments wall posture Manual Therapy Treatment Soft Tissue Mobilization 1 Body Location Right shoulder: SS/IS,LHBT Mobilization Type Cross-Friction Rolling Sustained Pressure Intensity/Depth Deep Body Position Supine PT-OP-R Modalities Start: 05/20/18 09:52 Freq: Status: Active Protocol: Document 08/03/18 16:35 EA (Rec: 08/03/18 16:41 EA [id number]) Electric Stimulation Electric Stimulation Interferential Current (IFC) Body Location right shoulder Duration (Minutes) 15 Intensity 11 Patient Position Supine Combined With Heat/Cold Hot Pack PT-OP-T Assessment and Plan Start: 05/20/18 09:52 Freq: Status: Active Protocol: Document 08/03/18 16:35 EA (Rec: 08/03/18 16:41 EA [id number]) Physical Therapy Assessment Assessment Summary Assessment Pt tolerated treatment well with only minor discomfort toward abduction. Overall patient is progressing well. Physical Therapy Plan Next Visit Focus/Plan Next Note Type Treatment Note Next Visit Plan Progress as tolerated.
--- NOTE | 2018-08-11 15:39 | PT.OTN ---
Current Diagnoses Pain in right arm (08/11/18) Physical Therapy Treatment Note PT-OP-A Visit Information Start: 05/20/18 09:52 Freq: Status: Active Protocol: Document 08/11/18 14:24 EA (Rec: 08/11/18 14:30 EA [id number]) Out-Patient Physical Therapy Visit Information Visit Information Visit Type Treatment Note Visit Start Time 13:45 Visit Stop Time 14:40 Total Visit Minutes 50 Visit Number 10 PT-OP-B Current Condition Start: 05/20/18 09:52 Freq: Status: Active Protocol: Document 05/20/18 10:06 EA (Rec: 05/20/18 10:27 EA [id number]) Current Condition History of Current Condition Onset Date November 2016 Current Complaints Right shoulder/arm pain History of Current Condition 2017 of lifting and moving injury and had formal PT at on January 2017 which resolved by 90%. Right Shoulder arm pain re-occurs last August of 2017 with no known injury and managed pain with OTC pain medication and biofreeze. Episodes of noturnal pain whenever patient slept to right side. Prior Treatments and Tests Formal PT at : 2016 with similar condition. Future Testing and Treatments Planned Ongoing cancer treament monthly scheduled. Hepa B- ongoing treatment. Treatment Goals Patient/Caregiver Goals Patient wants to completely eliminate pain Patient would like to know more HEP to pevent the recurrence Prior Functional Status Baseline Function- ADL's Independent Baseline Function- Mobility Independent Baseline Function- Work/School Retired Current Functional Impairments (Reported) Functional Limitations- ADL's Indep but difficulty with right hand overhead and lifting motion Functional Limitations- Mobility/Gait Indep Functional Limitations- Work/School Retired Functional Limitations- Recreation/ unable due to pain Hobbies PT-OP-C Subjective Start: 05/20/18 09:52 Freq: Status: Active Protocol: Document 08/11/18 14:24 EA (Rec: 08/11/18 14:30 EA [id number]) OP-PT Subjective Patient Comments Patient Comments Pt reports compliant with HEP and states right shoulder is a bit sore but not painful. PT-OP-E Functional Tests Start: 05/20/18 09:52 Freq: Status: Active Protocol: Document 05/20/18 10:06 EA (Rec: 05/20/18 10:27 EA [id number]) Functional Tests Apley's Scratch Test Action 1: The subject is instructed to touch the opposite shoulder with his/her hand. This motion checks Glenohumeral adduction, internal rotation , horizontal adduction and scapular protraction Action 2: The subject is instructed to place his/her arm overhead and reach behind the neck to touch his/her upper back. This motion checks Glenohumeral abduction, external rotation and scapular upward rotation and elevation. Action 3: The subject puts his/her hand on the lower back and reaches upward as far as possible. This motion checks glenohumeral adduction, internal rotation and scapular retraction with downward rotation Action 1- Left opposite scap Action 1- Right top of opposite shoulder Action 2- Left T4 Action 2- Right T1 Action 3- Left T6 Action 3- Right T2 PT-OP-F Manual Assessment Start: 05/20/18 09:52 Freq: Status: Active Protocol: Document 05/20/18 10:06 EA (Rec: 05/20/18 10:27 EA [id number]) Manual Assessments Soft Tissue Assessment Soft Tissue Mobility Assessment Pectorals, anterior capsule , neck flexors, traps, shoulder internal rotators tightness Joint Mobility Assessment Joint Mobility Assessment Hypo to right GH joint PT-OP-J Posture/Palpation/Skin Start: 05/20/18 09:52 Freq: Status: Active Protocol: Document 05/20/18 10:06 EA (Rec: 05/20/18 10:27 EA [id number]) Posture Evaluation Position Standing Evaluation View ant/lat Head/C-Spine Posture Forward Head Arm Posture (L) Internally Rotated (R) Internally Rotated Palpation Assessment Location One Palpation Location Right INFRA,SUPRA, anterior shoulder grade 2/4 tenderness Palpation Findings Soft Tissue Tightness Tenderness PT-OP-K Range of Motion Start: 05/20/18 09:52 Freq: Status: Active Protocol: Document 07/27/18 17:25 EA (Rec: 07/29/18 13:26 EA [id number]) Shoulder Goniometric Range of Motion Shoulder Measured in Degrees Right Active Testing Position Standing Flexion 170 Extension 60 Abduction 170 External Rotation at 90 degrees 75 Abduction Internal Rotation Behind Back (text) T11 PT-OP-L Special Tests Start: 05/20/18 09:52 Freq: Status: Active Protocol: Document 05/20/18 10:06 EA (Rec: 05/20/18 10:27 EA [id number]) Special Tests Shoulder Special Tests Elevation Impingement Test Results negative Drop Arm Rotator Cuff Test Results Negative Aguayo Facundo Impingement Test Results Positive Lift-Off Rotator Cuff Test Results positive Empty Can Test Results postive Belly Press Test Results positive PT-OP-M Strength Start: 05/20/18 09:52 Freq: Status: Active Protocol: Document 07/27/18 17:25 EA (Rec: 07/29/18 13:26 EA [id number]) Shoulder Strength Shoulder Manual Muscle Testing Right Flexion 4 Good Extension 4 Good Abduction (C5) 4 Good Adduction 4+ Good+ External Rotation 3+ Fair+ Internal Rotation 4 Good PT-OP-Q Treatments Start: 05/20/18 09:52 Freq: Status: Active Protocol: Document 08/11/18 14:24 EA (Rec: 08/11/18 14:30 EA [id number]) Cardio Equipment Upper Body Ergometer (UBE) Duration (Minutes) 6 Height 5 Gym Equipment Cable Column (Body Solid) Rows Resistance 20-30# Reps/Time 15 x 2 sets Therapeutic Exercises Sidelying Exercises 3 Sidelying Exercise Name ER Resistance 2# Reps/Minutes 10 2 Sidelying Exercise Name Horiz ABD Resistance 2 lbs Reps/Minutes x 15 reps x 2 1 Sidelying Exercise Name Shoulder abduction Side right Resistance 2# Reps/Minutes x 15 reps x 2 Sitting Exercises 1 Sitting Exercise Name Shoulder flexion, press, abduction Resistance 2 lbs Reps/Minutes x 12 reps Standing Exercises 4 Standing Exercise Name D1-D2 pattern Resistance 2 lbs Reps/Minutes x 10 reps x 2 sets Comments Marlon slightly bent 2 Standing Exercise Name T-bar shoulder press Resistance 2 lbs Reps/Minutes x 12 reps x 2 T-bar extension Resistance 4# Reps/Minutes 10x 2 sets 1 Standing Exercise Name T-bar flexion Resistance 2# Reps/Minutes x 15 reps Comments wall posture Manual Therapy Treatment Soft Tissue Mobilization 1 Body Location Right shoulder: SS/IS,LHBT Mobilization Type Cross-Friction Rolling Sustained Pressure Intensity/Depth Deep Body Position Supine PT-OP-R Modalities Start: 05/20/18 09:52 Freq: Status: Active Protocol: Document 08/11/18 14:24 EA (Rec: 08/11/18 14:30 EA [id number]) Electric Stimulation Electric Stimulation Interferential Current (IFC) Body Location right shoulder Duration (Minutes) 15 Intensity 11 Patient Position Supine Combined With Heat/Cold Hot Pack PT-OP-T Assessment and Plan Start: 05/20/18 09:52 Freq: Status: Active Protocol: Document 08/11/18 14:24 EA (Rec: 08/11/18 14:30 EA [id number]) Physical Therapy Assessment Assessment Summary Assessment No discomfort noted or any shoulder substitution in all therex. Patient is progressing well. Physical Therapy Plan Next Visit Focus/Plan Next Note Type Treatment Note Next Visit Plan Advance as tolerated.
--- NOTE | 2018-08-17 16:55 | PT.OTN ---
Current Diagnoses Pain in right arm (08/17/18) Physical Therapy Treatment Note PT-OP-A Visit Information Start: 05/20/18 09:52 Freq: Status: Active Protocol: Document 08/17/18 16:50 EA (Rec: 08/17/18 16:55 EA [id number]) Out-Patient Physical Therapy Visit Information Visit Information Visit Type Treatment Note Visit Start Time 15:15 Visit Stop Time 16:05 Total Visit Minutes 53 Visit Number 11 PT-OP-B Current Condition Start: 05/20/18 09:52 Freq: Status: Active Protocol: Document 05/20/18 10:06 EA (Rec: 05/20/18 10:27 EA [id number]) Current Condition History of Current Condition Onset Date November 2016 Current Complaints Right shoulder/arm pain History of Current Condition 2017 of lifting and moving injury and had formal PT at on January 2017 which resolved by 90%. Right Shoulder arm pain re-occurs last August of 2017 with no known injury and managed pain with OTC pain medication and biofreeze. Episodes of noturnal pain whenever patient slept to right side. Prior Treatments and Tests Formal PT at : 2016 with similar condition. Future Testing and Treatments Planned Ongoing cancer treament monthly scheduled. Hepa B- ongoing treatment. Treatment Goals Patient/Caregiver Goals Patient wants to completely eliminate pain Patient would like to know more HEP to pevent the recurrence Prior Functional Status Baseline Function- ADL's Independent Baseline Function- Mobility Independent Baseline Function- Work/School Retired Current Functional Impairments (Reported) Functional Limitations- ADL's Indep but difficulty with right hand overhead and lifting motion Functional Limitations- Mobility/Gait Indep Functional Limitations- Work/School Retired Functional Limitations- Recreation/ unable due to pain Hobbies PT-OP-C Subjective Start: 05/20/18 09:52 Freq: Status: Active Protocol: Document 08/17/18 16:50 EA (Rec: 08/17/18 16:55 EA [id number]) OP-PT Subjective Patient Comments Patient Comments Pt reports pain mostly when arm is at side hangin but less with overhead and located at behind the shoulder. PT-OP-E Functional Tests Start: 05/20/18 09:52 Freq: Status: Active Protocol: Document 05/20/18 10:06 EA (Rec: 05/20/18 10:27 EA [id number]) Functional Tests Apley's Scratch Test Action 1: The subject is instructed to touch the opposite shoulder with his/her hand. This motion checks Glenohumeral adduction, internal rotation , horizontal adduction and scapular protraction Action 2: The subject is instructed to place his/her arm overhead and reach behind the neck to touch his/her upper back. This motion checks Glenohumeral abduction, external rotation and scapular upward rotation and elevation. Action 3: The subject puts his/her hand on the lower back and reaches upward as far as possible. This motion checks glenohumeral adduction, internal rotation and scapular retraction with downward rotation Action 1- Left opposite scap Action 1- Right top of opposite shoulder Action 2- Left T4 Action 2- Right T1 Action 3- Left T6 Action 3- Right T2 PT-OP-F Manual Assessment Start: 05/20/18 09:52 Freq: Status: Active Protocol: Document 05/20/18 10:06 EA (Rec: 05/20/18 10:27 EA [id number]) Manual Assessments Soft Tissue Assessment Soft Tissue Mobility Assessment Pectorals, anterior capsule , neck flexors, traps, shoulder internal rotators tightness Joint Mobility Assessment Joint Mobility Assessment Hypo to right GH joint PT-OP-J Posture/Palpation/Skin Start: 05/20/18 09:52 Freq: Status: Active Protocol: Document 05/20/18 10:06 EA (Rec: 05/20/18 10:27 EA [id number]) Posture Evaluation Position Standing Evaluation View ant/lat Head/C-Spine Posture Forward Head Arm Posture (L) Internally Rotated (R) Internally Rotated Palpation Assessment Location One Palpation Location Right INFRA,SUPRA, anterior shoulder grade 2/4 tenderness Palpation Findings Soft Tissue Tightness Tenderness PT-OP-K Range of Motion Start: 05/20/18 09:52 Freq: Status: Active Protocol: Document 07/27/18 17:25 EA (Rec: 07/29/18 13:26 EA [id number]) Shoulder Goniometric Range of Motion Shoulder Measured in Degrees Right Active Testing Position Standing Flexion 170 Extension 60 Abduction 170 External Rotation at 90 degrees 75 Abduction Internal Rotation Behind Back (text) T11 PT-OP-L Special Tests Start: 05/20/18 09:52 Freq: Status: Active Protocol: Document 05/20/18 10:06 EA (Rec: 05/20/18 10:27 EA [id number]) Special Tests Shoulder Special Tests Elevation Impingement Test Results negative Drop Arm Rotator Cuff Test Results Negative Aguayo Facundo Impingement Test Results Positive Lift-Off Rotator Cuff Test Results positive Empty Can Test Results postive Belly Press Test Results positive PT-OP-M Strength Start: 05/20/18 09:52 Freq: Status: Active Protocol: Document 07/27/18 17:25 EA (Rec: 07/29/18 13:26 EA [id number]) Shoulder Strength Shoulder Manual Muscle Testing Right Flexion 4 Good Extension 4 Good Abduction (C5) 4 Good Adduction 4+ Good+ External Rotation 3+ Fair+ Internal Rotation 4 Good PT-OP-Q Treatments Start: 05/20/18 09:52 Freq: Status: Active Protocol: Document 08/17/18 16:50 EA (Rec: 08/17/18 16:55 EA [id number]) Cardio Equipment Upper Body Ergometer (UBE) Duration (Minutes) 6 Height 5 Gym Equipment Cable Column (Body Solid) Rows Resistance 20-30# Reps/Time 15 x 2 sets Therapeutic Exercises Sidelying Exercises 3 Sidelying Exercise Name ER Resistance 2# Reps/Minutes 10 2 Sidelying Exercise Name Horiz ABD Resistance 2 lbs Reps/Minutes x 15 reps x 2 1 Sidelying Exercise Name Shoulder abduction Side right Resistance 2# Reps/Minutes x 15 reps x 2 Sitting Exercises 1 Sitting Exercise Name Shoulder flexion, press, abduction Resistance 2 lbs Reps/Minutes x 12 reps Standing Exercises 4 Standing Exercise Name D1-D2 pattern Resistance 2 lbs Reps/Minutes x 10 reps x 2 sets Comments Marlon slightly bent Manual Therapy Treatment Soft Tissue Mobilization 1 Body Location Post shoulder Mobilization Type Cross-Friction Rolling Sustained Pressure Intensity/Depth Deep Body Position Supine PT-OP-R Modalities Start: 05/20/18 09:52 Freq: Status: Active Protocol: Document 08/17/18 16:50 EA (Rec: 08/17/18 16:55 EA [id number]) Electric Stimulation Electric Stimulation Interferential Current (IFC) Body Location right shoulder/ posterior Duration (Minutes) 15 Intensity 11 Patient Position Supine Combined With Heat/Cold Hot Pack Ultrasound Therapy Treatment Right Anterior Shoulder Treatment Duration (minutes) 5 Patient Position Supine Frequency Setting (mHz) 1 Mode Setting Continuous Intensity Setting (w/cm2) 1.2 PT-OP-T Assessment and Plan Start: 05/20/18 09:52 Freq: Status: Active Protocol: Document 08/17/18 16:50 EA (Rec: 08/17/18 16:55 EA [id number]) Physical Therapy Assessment Assessment Summary Assessment Improved symptoms after manual and electrotherapy. Physical Therapy Plan Next Visit Focus/Plan Next Note Type Treatment Note Next Visit Plan Advance as tolerated.
--- NOTE | 2018-08-24 13:19 | PT.OTN ---
Current Diagnoses Pain in right arm (08/24/18) Physical Therapy Treatment Note PT-OP-A Visit Information Start: 05/20/18 09:52 Freq: Status: Active Protocol: Document 08/24/18 12:58 EA (Rec: 08/24/18 13:02 EA [id number]) Out-Patient Physical Therapy Visit Information Visit Information Visit Type Treatment Note Visit Start Time 12:15 Visit Stop Time 13:05 Total Visit Minutes 53 Visit Number 12 PT-OP-B Current Condition Start: 05/20/18 09:52 Freq: Status: Active Protocol: Document 05/20/18 10:06 EA (Rec: 05/20/18 10:27 EA [id number]) Current Condition History of Current Condition Onset Date November 2016 Current Complaints Right shoulder/arm pain History of Current Condition 2017 of lifting and moving injury and had formal PT at on January 2017 which resolved by 90%. Right Shoulder arm pain re-occurs last August of 2017 with no known injury and managed pain with OTC pain medication and biofreeze. Episodes of noturnal pain whenever patient slept to right side. Prior Treatments and Tests Formal PT at : 2016 with similar condition. Future Testing and Treatments Planned Ongoing cancer treament monthly scheduled. Hepa B- ongoing treatment. Treatment Goals Patient/Caregiver Goals Patient wants to completely eliminate pain Patient would like to know more HEP to pevent the recurrence Prior Functional Status Baseline Function- ADL's Independent Baseline Function- Mobility Independent Baseline Function- Work/School Retired Current Functional Impairments (Reported) Functional Limitations- ADL's Indep but difficulty with right hand overhead and lifting motion Functional Limitations- Mobility/Gait Indep Functional Limitations- Work/School Retired Functional Limitations- Recreation/ unable due to pain Hobbies PT-OP-C Subjective Start: 05/20/18 09:52 Freq: Status: Active Protocol: Document 08/24/18 12:58 EA (Rec: 08/24/18 13:02 EA [id number]) OP-PT Subjective Patient Comments Patient Comments If i can have the same treament as the last time, that really help me well. PT-OP-E Functional Tests Start: 05/20/18 09:52 Freq: Status: Active Protocol: Document 05/20/18 10:06 EA (Rec: 05/20/18 10:27 EA [id number]) Functional Tests Apley's Scratch Test Action 1: The subject is instructed to touch the opposite shoulder with his/her hand. This motion checks Glenohumeral adduction, internal rotation , horizontal adduction and scapular protraction Action 2: The subject is instructed to place his/her arm overhead and reach behind the neck to touch his/her upper back. This motion checks Glenohumeral abduction, external rotation and scapular upward rotation and elevation. Action 3: The subject puts his/her hand on the lower back and reaches upward as far as possible. This motion checks glenohumeral adduction, internal rotation and scapular retraction with downward rotation Action 1- Left opposite scap Action 1- Right top of opposite shoulder Action 2- Left T4 Action 2- Right T1 Action 3- Left T6 Action 3- Right T2 PT-OP-F Manual Assessment Start: 05/20/18 09:52 Freq: Status: Active Protocol: Document 05/20/18 10:06 EA (Rec: 05/20/18 10:27 EA [id number]) Manual Assessments Soft Tissue Assessment Soft Tissue Mobility Assessment Pectorals, anterior capsule , neck flexors, traps, shoulder internal rotators tightness Joint Mobility Assessment Joint Mobility Assessment Hypo to right GH joint PT-OP-J Posture/Palpation/Skin Start: 05/20/18 09:52 Freq: Status: Active Protocol: Document 05/20/18 10:06 EA (Rec: 05/20/18 10:27 EA [id number]) Posture Evaluation Position Standing Evaluation View ant/lat Head/C-Spine Posture Forward Head Arm Posture (L) Internally Rotated (R) Internally Rotated Palpation Assessment Location One Palpation Location Right INFRA,SUPRA, anterior shoulder grade 2/4 tenderness Palpation Findings Soft Tissue Tightness Tenderness PT-OP-K Range of Motion Start: 05/20/18 09:52 Freq: Status: Active Protocol: Document 07/27/18 17:25 EA (Rec: 07/29/18 13:26 EA [id number]) Shoulder Goniometric Range of Motion Shoulder Measured in Degrees Right Active Testing Position Standing Flexion 170 Extension 60 Abduction 170 External Rotation at 90 degrees 75 Abduction Internal Rotation Behind Back (text) T11 PT-OP-L Special Tests Start: 05/20/18 09:52 Freq: Status: Active Protocol: Document 05/20/18 10:06 EA (Rec: 05/20/18 10:27 EA [id number]) Special Tests Shoulder Special Tests Elevation Impingement Test Results negative Drop Arm Rotator Cuff Test Results Negative Aguayo Facundo Impingement Test Results Positive Lift-Off Rotator Cuff Test Results positive Empty Can Test Results postive Belly Press Test Results positive PT-OP-M Strength Start: 05/20/18 09:52 Freq: Status: Active Protocol: Document 07/27/18 17:25 EA (Rec: 07/29/18 13:26 EA [id number]) Shoulder Strength Shoulder Manual Muscle Testing Right Flexion 4 Good Extension 4 Good Abduction (C5) 4 Good Adduction 4+ Good+ External Rotation 3+ Fair+ Internal Rotation 4 Good PT-OP-Q Treatments Start: 05/20/18 09:52 Freq: Status: Active Protocol: Document 08/24/18 12:58 EA (Rec: 08/24/18 13:02 EA [id number]) Cardio Equipment Upper Body Ergometer (UBE) Duration (Minutes) 6 Height 5 Gym Equipment Cable Column (Body Solid) Rows Resistance 20-30# Reps/Time 15 x 2 sets Therapeutic Exercises Sidelying Exercises 3 Sidelying Exercise Name ER Resistance 2-3# Reps/Minutes 10x 2 2 Sidelying Exercise Name Horiz ABD Resistance 2 lbs Reps/Minutes x 15 reps x 2 1 Sidelying Exercise Name Shoulder abduction Side right Resistance 2# Reps/Minutes x 15 reps x 2 Sitting Exercises 1 Sitting Exercise Name Shoulder flexion, press, abduction Resistance 2 lbs Reps/Minutes x 12 reps Standing Exercises 4 Standing Exercise Name D1-D2 pattern Resistance 2 lbs Reps/Minutes x 10 reps x 2 sets Comments Marlon slightly bent T-bar extension Resistance 4# Reps/Minutes 10x 2 sets 1 Standing Exercise Name T-bar flexion Resistance 2# Reps/Minutes x 15 reps Comments wall posture Manual Therapy Treatment Soft Tissue Mobilization 1 Body Location Post shoulder: Infra, teres M Mobilization Type Cross-Friction Rolling Sustained Pressure Intensity/Depth Deep Body Position Supine PT-OP-R Modalities Start: 05/20/18 09:52 Freq: Status: Active Protocol: Document 08/24/18 12:58 EA (Rec: 08/24/18 13:02 EA [id number]) Electric Stimulation Electric Stimulation Interferential Current (IFC) Body Location right shoulder/ posterior Duration (Minutes) 15 Intensity 14 Patient Position Sidelying Combined With Heat/Cold Hot Pack Ultrasound Therapy Treatment Right Anterior Shoulder Treatment Duration (minutes) 5 Patient Position Supine Frequency Setting (mHz) 1 Mode Setting Continuous Intensity Setting (w/cm2) 1.2 Comments Infra/Teres M PT-OP-T Assessment and Plan Start: 05/20/18 09:52 Freq: Status: Active Protocol: Document 08/24/18 12:58 EA (Rec: 08/24/18 13:02 EA [id number]) Physical Therapy Assessment Assessment Summary Assessment improved symptoms noted after session. Patient cont. to progress. Physical Therapy Plan Next Visit Focus/Plan Next Note Type Treatment Note Next Visit Plan Advance as tolerated.
--- NOTE | 2018-09-01 13:49 | PT.OTN ---
Current Diagnoses Pain in right arm (09/01/18) Physical Therapy Treatment Note PT-OP-A Visit Information Start: 05/20/18 09:52 Freq: Status: Active Protocol: Document 09/01/18 13:00 [facility] (Rec: 09/01/18 13:48 [facility] [id number]) Out-Patient Physical Therapy Visit Information Visit Information Visit Type Treatment Note Visit Start Time 13:05 Visit Stop Time 13:58 Total Visit Minutes 53 Visit Number 13 PT-OP-B Current Condition Start: 05/20/18 09:52 Freq: Status: Active Protocol: Document 05/20/18 10:06 EA (Rec: 05/20/18 10:27 EA [id number]) Current Condition History of Current Condition Onset Date November 2016 Current Complaints Right shoulder/arm pain History of Current Condition 2017 of lifting and moving injury and had formal PT at on January 2017 which resolved by 90%. Right Shoulder arm pain re-occurs last August of 2017 with no known injury and managed pain with OTC pain medication and biofreeze. Episodes of noturnal pain whenever patient slept to right side. Prior Treatments and Tests Formal PT at : 2016 with similar condition. Future Testing and Treatments Planned Ongoing cancer treament monthly scheduled. Hepa B- ongoing treatment. Treatment Goals Patient/Caregiver Goals Patient wants to completely eliminate pain Patient would like to know more HEP to pevent the recurrence Prior Functional Status Baseline Function- ADL's Independent Baseline Function- Mobility Independent Baseline Function- Work/School Retired Current Functional Impairments (Reported) Functional Limitations- ADL's Indep but difficulty with right hand overhead and lifting motion Functional Limitations- Mobility/Gait Indep Functional Limitations- Work/School Retired Functional Limitations- Recreation/ unable due to pain Hobbies PT-OP-C Subjective Start: 05/20/18 09:52 Freq: Status: Active Protocol: Document 09/01/18 13:00 [facility] (Rec: 09/01/18 13:48 [facility] [id number]) OP-PT Subjective Patient Comments Patient Comments Pt reports she has been working on her posture. She reports she feels like the massage really helps. Patient Reported Progress Improving PT-OP-E Functional Tests Start: 05/20/18 09:52 Freq: Status: Active Protocol: Document 05/20/18 10:06 EA (Rec: 05/20/18 10:27 EA [id number]) Functional Tests Apley's Scratch Test Action 1: The subject is instructed to touch the opposite shoulder with his/her hand. This motion checks Glenohumeral adduction, internal rotation , horizontal adduction and scapular protraction Action 2: The subject is instructed to place his/her arm overhead and reach behind the neck to touch his/her upper back. This motion checks Glenohumeral abduction, external rotation and scapular upward rotation and elevation. Action 3: The subject puts his/her hand on the lower back and reaches upward as far as possible. This motion checks glenohumeral adduction, internal rotation and scapular retraction with downward rotation Action 1- Left opposite scap Action 1- Right top of opposite shoulder Action 2- Left T4 Action 2- Right T1 Action 3- Left T6 Action 3- Right T2 PT-OP-F Manual Assessment Start: 05/20/18 09:52 Freq: Status: Active Protocol: Document 05/20/18 10:06 EA (Rec: 05/20/18 10:27 EA [id number]) Manual Assessments Soft Tissue Assessment Soft Tissue Mobility Assessment Pectorals, anterior capsule , neck flexors, traps, shoulder internal rotators tightness Joint Mobility Assessment Joint Mobility Assessment Hypo to right GH joint PT-OP-J Posture/Palpation/Skin Start: 05/20/18 09:52 Freq: Status: Active Protocol: Document 05/20/18 10:06 EA (Rec: 05/20/18 10:27 EA [id number]) Posture Evaluation Position Standing Evaluation View ant/lat Head/C-Spine Posture Forward Head Arm Posture (L) Internally Rotated (R) Internally Rotated Palpation Assessment Location One Palpation Location Right INFRA,SUPRA, anterior shoulder grade 2/4 tenderness Palpation Findings Soft Tissue Tightness Tenderness PT-OP-K Range of Motion Start: 05/20/18 09:52 Freq: Status: Active Protocol: Document 07/27/18 17:25 EA (Rec: 07/29/18 13:26 EA [id number]) Shoulder Goniometric Range of Motion Shoulder Measured in Degrees Right Active Testing Position Standing Flexion 170 Extension 60 Abduction 170 External Rotation at 90 degrees 75 Abduction Internal Rotation Behind Back (text) T11 PT-OP-L Special Tests Start: 05/20/18 09:52 Freq: Status: Active Protocol: Document 05/20/18 10:06 EA (Rec: 05/20/18 10:27 EA [id number]) Special Tests Shoulder Special Tests Elevation Impingement Test Results negative Drop Arm Rotator Cuff Test Results Negative Aguayo Facundo Impingement Test Results Positive Lift-Off Rotator Cuff Test Results positive Empty Can Test Results postive Belly Press Test Results positive PT-OP-M Strength Start: 05/20/18 09:52 Freq: Status: Active Protocol: Document 07/27/18 17:25 EA (Rec: 07/29/18 13:26 EA [id number]) Shoulder Strength Shoulder Manual Muscle Testing Right Flexion 4 Good Extension 4 Good Abduction (C5) 4 Good Adduction 4+ Good+ External Rotation 3+ Fair+ Internal Rotation 4 Good PT-OP-Q Treatments Start: 05/20/18 09:52 Freq: Status: Active Protocol: Document 09/01/18 13:00 [facility] (Rec: 09/01/18 13:48 [facility] [id number]) Cardio Equipment Upper Body Ergometer (UBE) Duration (Minutes) 6 Height 5 Gym Equipment Cable Column (Body Solid) Lat Pull Down Resistance 20 Reps/Time 15x2 Rows Resistance 20-30# Reps/Time 15 x 2 sets Therapeutic Exercises Standing Exercises 4 Standing Exercise Name D1-D2 pattern Resistance 2 lbs Reps/Minutes x 10 reps x 2 sets Comments Marlon slightly bent Manual Therapy Treatment Soft Tissue Mobilization 1 Body Location Post shoulder: Infra, teres M Mobilization Type Cross-Friction Rolling Sustained Pressure Intensity/Depth Deep Body Position Supine PT-OP-R Modalities Start: 05/20/18 09:52 Freq: Status: Active Protocol: Document 09/01/18 13:00 [facility] (Rec: 09/01/18 13:48 [facility] [id number]) Electric Stimulation Electric Stimulation Interferential Current (IFC) Body Location right shoulder/ posterior Duration (Minutes) 15 Intensity 14 Patient Position Sidelying Combined With Heat/Cold Hot Pack PT-OP-T Assessment and Plan Start: 05/20/18 09:52 Freq: Status: Active Protocol: Document 09/01/18 13:00 [facility] (Rec: 09/01/18 13:48 [facility] [id number]) Physical Therapy Plan Next Visit Focus/Plan Next Note Type Progress Note Next Visit Plan Cont to advance stability
--- NOTE | 2018-09-16 17:34 | PT.OTN ---
Current Diagnoses Pain in right arm (09/21/18) Physical Therapy Treatment Note PT-OP-A Visit Information Start: 05/20/18 09:52 Freq: Status: Active Protocol: Document 09/16/18 15:57 EA (Rec: 09/16/18 16:03 EA [id number]) Out-Patient Physical Therapy Visit Information Visit Information Visit Type Treatment Note Visit Start Time 15:15 Visit Stop Time 16:00 Total Visit Minutes 53 Visit Number 14 PT-OP-B Current Condition Start: 05/20/18 09:52 Freq: Status: Active Protocol: Document 05/20/18 10:06 EA (Rec: 05/20/18 10:27 EA [id number]) Current Condition History of Current Condition Onset Date November 2016 Current Complaints Right shoulder/arm pain History of Current Condition 2017 of lifting and moving injury and had formal PT at on January 2017 which resolved by 90%. Right Shoulder arm pain re-occurs last August of 2017 with no known injury and managed pain with OTC pain medication and biofreeze. Episodes of noturnal pain whenever patient slept to right side. Prior Treatments and Tests Formal PT at : 2016 with similar condition. Future Testing and Treatments Planned Ongoing cancer treament monthly scheduled. Hepa B- ongoing treatment. Treatment Goals Patient/Caregiver Goals Patient wants to completely eliminate pain Patient would like to know more HEP to pevent the recurrence Prior Functional Status Baseline Function- ADL's Independent Baseline Function- Mobility Independent Baseline Function- Work/School Retired Current Functional Impairments (Reported) Functional Limitations- ADL's Indep but difficulty with right hand overhead and lifting motion Functional Limitations- Mobility/Gait Indep Functional Limitations- Work/School Retired Functional Limitations- Recreation/ unable due to pain Hobbies PT-OP-C Subjective Start: 05/20/18 09:52 Freq: Status: Active Protocol: Document 09/16/18 15:57 EA (Rec: 09/16/18 16:03 EA [id number]) OP-PT Subjective Patient Comments Patient Comments Pt reports my shoulder has worst in the past weeks due to lack of PT schedule; states she has been using heat to decreased pain at posterior shoulder. PT-OP-E Functional Tests Start: 05/20/18 09:52 Freq: Status: Active Protocol: Document 05/20/18 10:06 EA (Rec: 05/20/18 10:27 EA [id number]) Functional Tests Apley's Scratch Test Action 1: The subject is instructed to touch the opposite shoulder with his/her hand. This motion checks Glenohumeral adduction, internal rotation , horizontal adduction and scapular protraction Action 2: The subject is instructed to place his/her arm overhead and reach behind the neck to touch his/her upper back. This motion checks Glenohumeral abduction, external rotation and scapular upward rotation and elevation. Action 3: The subject puts his/her hand on the lower back and reaches upward as far as possible. This motion checks glenohumeral adduction, internal rotation and scapular retraction with downward rotation Action 1- Left opposite scap Action 1- Right top of opposite shoulder Action 2- Left T4 Action 2- Right T1 Action 3- Left T6 Action 3- Right T2 PT-OP-F Manual Assessment Start: 05/20/18 09:52 Freq: Status: Active Protocol: Document 05/20/18 10:06 EA (Rec: 05/20/18 10:27 EA [id number]) Manual Assessments Soft Tissue Assessment Soft Tissue Mobility Assessment Pectorals, anterior capsule , neck flexors, traps, shoulder internal rotators tightness Joint Mobility Assessment Joint Mobility Assessment Hypo to right GH joint PT-OP-J Posture/Palpation/Skin Start: 05/20/18 09:52 Freq: Status: Active Protocol: Document 05/20/18 10:06 EA (Rec: 05/20/18 10:27 EA [id number]) Posture Evaluation Position Standing Evaluation View ant/lat Head/C-Spine Posture Forward Head Arm Posture (L) Internally Rotated (R) Internally Rotated Palpation Assessment Location One Palpation Location Right INFRA,SUPRA, anterior shoulder grade 2/4 tenderness Palpation Findings Soft Tissue Tightness Tenderness PT-OP-K Range of Motion Start: 05/20/18 09:52 Freq: Status: Active Protocol: Document 07/27/18 17:25 EA (Rec: 07/29/18 13:26 EA [id number]) Shoulder Goniometric Range of Motion Shoulder Measured in Degrees Right Active Testing Position Standing Flexion 170 Extension 60 Abduction 170 External Rotation at 90 degrees 75 Abduction Internal Rotation Behind Back (text) T11 PT-OP-L Special Tests Start: 05/20/18 09:52 Freq: Status: Active Protocol: Document 05/20/18 10:06 EA (Rec: 05/20/18 10:27 EA [id number]) Special Tests Shoulder Special Tests Elevation Impingement Test Results negative Drop Arm Rotator Cuff Test Results Negative Aguayo Facundo Impingement Test Results Positive Lift-Off Rotator Cuff Test Results positive Empty Can Test Results postive Belly Press Test Results positive PT-OP-M Strength Start: 05/20/18 09:52 Freq: Status: Active Protocol: Document 07/27/18 17:25 EA (Rec: 07/29/18 13:26 EA [id number]) Shoulder Strength Shoulder Manual Muscle Testing Right Flexion 4 Good Extension 4 Good Abduction (C5) 4 Good Adduction 4+ Good+ External Rotation 3+ Fair+ Internal Rotation 4 Good PT-OP-Q Treatments Start: 05/20/18 09:52 Freq: Status: Active Protocol: Document 09/16/18 15:57 EA (Rec: 09/16/18 16:03 EA [id number]) Cardio Equipment Upper Body Ergometer (UBE) Duration (Minutes) 6 Height 5 Therapeutic Exercises Sidelying Exercises 3 Sidelying Exercise Name ER Resistance 2# Reps/Minutes 10x 2 2 Sidelying Exercise Name Horiz ABD Resistance 2 lbs Reps/Minutes x 15 reps x 2 Manual Therapy Treatment Soft Tissue Mobilization 1 Body Location Post shoulder: Infra, teres M Mobilization Type Cross-Friction Rolling Sustained Pressure Intensity/Depth Deep Body Position Supine PT-OP-R Modalities Start: 05/20/18 09:52 Freq: Status: Active Protocol: Document 09/16/18 15:57 EA (Rec: 09/16/18 16:03 EA [id number]) Electric Stimulation Electric Stimulation Interferential Current (IFC) Body Location Infra/Supra/Teres M Duration (Minutes) 15 Intensity 14 Patient Position Sidelying Combined With Heat/Cold Hot Pack Ultrasound Therapy Treatment Right Anterior Shoulder Treatment Duration (minutes) 5 Patient Position Supine Frequency Setting (mHz) 1 Mode Setting Continuous Intensity Setting (w/cm2) 1.2 Comments Infra/Teres M PT-OP-T Assessment and Plan Start: 05/20/18 09:52 Freq: Status: Active Protocol: Document 09/16/18 15:57 EA (Rec: 09/16/18 16:03 EA [id number]) Physical Therapy Assessment Impairments Impairments Functional Activities Pain Posture ROM Soft Tissue Mobility Strength Goals Four Impairment Impaired shoulder strength Property Condition Assessor Goal (LTG) Patient will exhibit shoulder flexors/abductors, rotators with at least 4/5 fo functional overhead reaching and lifting use. LTG Duration 4 wks (improving) Three Impairment Impaired shoulder Flexion/ABD/ ER ROM Assisted Goal (LTG) Patient will exhibit normal shoulder ROM to improve functional mobility with no discomfort. LTG Duration 4 wks Two Impairment Impaired functional reach behind Assisted Goal (LTG) Patient will reach behind don her bra without increase in symptoms LTG Duration 4 wks One Impairment Quich Dash UE functional scale 25 Assisted Goal (LTG) Patient will have Quick Dash results of less than 10 LTG Duration 4 wks (progressing slow) Progress Towards Goals Progress Towards Goals Slow Progress due to Attendance Issues Assessment Summary Assessment Patient exhibits slow progress at this time due to lack of scheduled appointments and decreased compliance to her HEP in the past 3 weeks. Symptoms to anterior shoulder has been diminished and main complaint at this time are the scapular mucles. Palpation reveals moderate tenderness infraspinatus, teres major/ minor muscle. Shoulder ROM are WFL and strength is limited mainly with pain. Patient would still benefit with skilled PT addressing pain, weakness, abnormal posture. Physical Therapy Plan Frequency and Duration Frequency of Treatment 2x/Week Duration of Treatment 6 Plan of Care Start Date 09/16/18 Plan of Care End Date 10/28/18 Therapeutic Interventions Therapeutic Interventions Home Exercise Program Joint Mobilizations Manual Therapy Patient/Caregiver Education Self-Care/Home Management Soft Tissue Mobilization Taping Therapeutic Activities Modalities Cold Pack/Ice Massage Electric Stimulation Hot Packs Ultrasound Next Visit Focus/Plan Next Note Type Treatment Note Next Visit Plan Manual PT to scapular boarders for pain, flexibility to shorten muscles.
--- NOTE | 2018-09-16 17:35 | PT.OPPOC ---
Current Diagnoses Pain in right arm (09/21/18) Provider Visit Care Team Role Provider Type Marine Kraus PA-C Attending Provider Physician Primary Care Provider Specialty: Internal Medicine Address: [address] [place] [address], [facility] Email: Plan Of Care PT-OP-T Assessment and Plan Start: 05/20/18 09:52 Freq: Status: Active Protocol: Document 09/16/18 15:57 EA (Rec: 09/16/18 16:03 EA [id number]) Physical Therapy Assessment Impairments Impairments Functional Activities Pain Posture ROM Soft Tissue Mobility Strength Goals Four Impairment Impaired shoulder strength Teacher Music Goal (LTG) Patient will exhibit shoulder flexors/abductors, rotators with at least 4/5 fo functional overhead reaching and lifting use. LTG Duration 4 wks (improving) Three Impairment Impaired shoulder Flexion/ABD/ ER ROM Teacher Music Goal (LTG) Patient will exhibit normal shoulder ROM to improve functional mobility with no discomfort. LTG Duration 4 wks Two Impairment Impaired functional reach behind Senior Living Goal (LTG) Patient will reach behind don her bra without increase in symptoms LTG Duration 4 wks One Impairment Quich Dash UE functional scale 25 Teacher Music Goal (LTG) Patient will have Quick Dash results of less than 10 LTG Duration 4 wks (progressing slow) Progress Towards Goals Progress Towards Goals Slow Progress due to Attendance Issues Assessment Summary Assessment Patient exhibits slow progress at this time due to lack of scheduled appointments and decreased compliance to her HEP in the past 3 weeks. Symptoms to anterior shoulder has been diminished and main complaint at this time are the scapular mucles. Palpation reveals moderate tenderness infraspinatus, teres major/ minor muscle. Shoulder ROM are WFL and strength is limited mainly with pain. Patient would still benefit with skilled PT addressing pain, weakness, abnormal posture. Physical Therapy Plan Frequency and Duration Frequency of Treatment 2x/Week Duration of Treatment 6 Plan of Care Start Date 09/16/18 Plan of Care End Date 10/28/18 Therapeutic Interventions Therapeutic Interventions Home Exercise Program Joint Mobilizations Manual Therapy Patient/Caregiver Education Self-Care/Home Management Soft Tissue Mobilization Taping Therapeutic Activities Modalities Cold Pack/Ice Massage Electric Stimulation Hot Packs Ultrasound Next Visit Focus/Plan Next Note Type Treatment Note Next Visit Plan Manual PT to scapular boarders for pain, flexibility to shorten muscles. Plan of Care Dates Plan of Care Start Date 09/16/18 Plan of Care End Date 10/28/18 Please Sign and Return: I have reviewed this Plan of Care and certify that the skilled therapy services above are required to meet the patient?s needs. Physician Signature Date Printed Name and Credentials Clinical Instructor Signature Printed Name and Credentials
--- NOTE | 2018-10-05 16:41 | PT.OTN ---
Current Diagnoses Pain in right arm (10/05/18) Physical Therapy Treatment Note PT-OP-A Visit Information Start: 05/20/18 09:52 Freq: Status: Active Protocol: Document 10/05/18 15:11 EA (Rec: 10/05/18 15:16 EA [id number]) Out-Patient Physical Therapy Visit Information Visit Information Visit Type Treatment Note Visit Start Time 14:30 Visit Stop Time 15:20 Total Visit Minutes 50 Visit Number 16 PT-OP-B Current Condition Start: 05/20/18 09:52 Freq: Status: Active Protocol: Document 05/20/18 10:06 EA (Rec: 05/20/18 10:27 EA [id number]) Current Condition History of Current Condition Onset Date November 2016 Current Complaints Right shoulder/arm pain History of Current Condition 2017 of lifting and moving injury and had formal PT at on January 2017 which resolved by 90%. Right Shoulder arm pain re-occurs last August of 2017 with no known injury and managed pain with OTC pain medication and biofreeze. Episodes of noturnal pain whenever patient slept to right side. Prior Treatments and Tests Formal PT at : 2016 with similar condition. Future Testing and Treatments Planned Ongoing cancer treament monthly scheduled. Hepa B- ongoing treatment. Treatment Goals Patient/Caregiver Goals Patient wants to completely eliminate pain Patient would like to know more HEP to pevent the recurrence Prior Functional Status Baseline Function- ADL's Independent Baseline Function- Mobility Independent Baseline Function- Work/School Retired Current Functional Impairments (Reported) Functional Limitations- ADL's Indep but difficulty with right hand overhead and lifting motion Functional Limitations- Mobility/Gait Indep Functional Limitations- Work/School Retired Functional Limitations- Recreation/ unable due to pain Hobbies PT-OP-C Subjective Start: 05/20/18 09:52 Freq: Status: Active Protocol: Document 10/05/18 15:11 EA (Rec: 10/05/18 15:16 EA [id number]) OP-PT Subjective Patient Comments Patient Comments PT reports very les frequent pain episodes; states 3 times in 14 days and rated 2/10. PT-OP-E Functional Tests Start: 05/20/18 09:52 Freq: Status: Active Protocol: Document 05/20/18 10:06 EA (Rec: 05/20/18 10:27 EA [id number]) Functional Tests Apley's Scratch Test Action 1: The subject is instructed to touch the opposite shoulder with his/her hand. This motion checks Glenohumeral adduction, internal rotation , horizontal adduction and scapular protraction Action 2: The subject is instructed to place his/her arm overhead and reach behind the neck to touch his/her upper back. This motion checks Glenohumeral abduction, external rotation and scapular upward rotation and elevation. Action 3: The subject puts his/her hand on the lower back and reaches upward as far as possible. This motion checks glenohumeral adduction, internal rotation and scapular retraction with downward rotation Action 1- Left opposite scap Action 1- Right top of opposite shoulder Action 2- Left T4 Action 2- Right T1 Action 3- Left T6 Action 3- Right T2 PT-OP-F Manual Assessment Start: 05/20/18 09:52 Freq: Status: Active Protocol: Document 05/20/18 10:06 EA (Rec: 05/20/18 10:27 EA [id number]) Manual Assessments Soft Tissue Assessment Soft Tissue Mobility Assessment Pectorals, anterior capsule , neck flexors, traps, shoulder internal rotators tightness Joint Mobility Assessment Joint Mobility Assessment Hypo to right GH joint PT-OP-J Posture/Palpation/Skin Start: 05/20/18 09:52 Freq: Status: Active Protocol: Document 05/20/18 10:06 EA (Rec: 05/20/18 10:27 EA [id number]) Posture Evaluation Position Standing Evaluation View ant/lat Head/C-Spine Posture Forward Head Arm Posture (L) Internally Rotated (R) Internally Rotated Palpation Assessment Location One Palpation Location Right INFRA,SUPRA, anterior shoulder grade 2/4 tenderness Palpation Findings Soft Tissue Tightness Tenderness PT-OP-K Range of Motion Start: 05/20/18 09:52 Freq: Status: Active Protocol: Document 07/27/18 17:25 EA (Rec: 07/29/18 13:26 EA [id number]) Shoulder Goniometric Range of Motion Shoulder Measured in Degrees Right Active Testing Position Standing Flexion 170 Extension 60 Abduction 170 External Rotation at 90 degrees 75 Abduction Internal Rotation Behind Back (text) T11 PT-OP-L Special Tests Start: 05/20/18 09:52 Freq: Status: Active Protocol: Document 05/20/18 10:06 EA (Rec: 05/20/18 10:27 EA [id number]) Special Tests Shoulder Special Tests Elevation Impingement Test Results negative Drop Arm Rotator Cuff Test Results Negative Aguayo Facundo Impingement Test Results Positive Lift-Off Rotator Cuff Test Results positive Empty Can Test Results postive Belly Press Test Results positive PT-OP-M Strength Start: 05/20/18 09:52 Freq: Status: Active Protocol: Document 07/27/18 17:25 EA (Rec: 07/29/18 13:26 EA [id number]) Shoulder Strength Shoulder Manual Muscle Testing Right Flexion 4 Good Extension 4 Good Abduction (C5) 4 Good Adduction 4+ Good+ External Rotation 3+ Fair+ Internal Rotation 4 Good PT-OP-Q Treatments Start: 05/20/18 09:52 Freq: Status: Active Protocol: Document 10/05/18 15:11 EA (Rec: 10/05/18 15:16 EA [id number]) Cardio Equipment Upper Body Ergometer (UBE) Duration (Minutes) 6 Height 5 Gym Equipment Cable Column (Body Solid) Lat Pull Down Resistance 20 Reps/Time 15x2 Rows Resistance 20-30# Reps/Time 15 x 2 sets Therapeutic Exercises Sidelying Exercises 3 Sidelying Exercise Name ER Resistance 2# Reps/Minutes 10x 2 2 Sidelying Exercise Name Horiz ABD Resistance 2 lbs Reps/Minutes x 15 reps x 2 1 Sidelying Exercise Name Shoulder abduction Side right Resistance 2# Reps/Minutes x 15 reps x 2 Standing Exercises 4 Standing Exercise Name D1-D2 pattern Resistance 2 lbs Reps/Minutes x 10 reps x 2 sets Comments Marlon slightly bent T-bar extension Resistance 4# Reps/Minutes 10x 2 sets 1 Standing Exercise Name T-bar flexion Resistance 2# Reps/Minutes x 15 reps Comments wall posture Manual Therapy Treatment Soft Tissue Mobilization 1 Body Location Post shoulder: Infra, teres M Mobilization Type Cross-Friction Rolling Sustained Pressure Intensity/Depth Deep Body Position Sidelying PT-OP-R Modalities Start: 05/20/18 09:52 Freq: Status: Active Protocol: Document 10/05/18 15:11 EA (Rec: 10/05/18 15:16 EA [id number]) Hot Pack/Cold Pack Treatment Hot Pack Location right shoulder Patient Position Supine Treatment Duration (minutes) 10 Patient Tolerance Good PT-OP-T Assessment and Plan Start: 05/20/18 09:52 Freq: Status: Active Protocol: Document 10/05/18 15:11 EA (Rec: 10/05/18 15:16 EA [id number]) Physical Therapy Assessment Assessment Summary Assessment Pt shows great improvement with exercise tolerance and form; overhead movement show no shoulder substitution. Overall patient is progressing well. I recommended to cancel the appointment PRN in the next two weeks and follow up after for discharge preparation. Physical Therapy Plan Next Visit Focus/Plan Next Note Type Treatment Note Next Visit Plan Possible discharge next visit if no more complaint.
--- NOTE | 2018-10-11 12:00 | PT.OTN ---
Current Diagnoses Pain in right arm (10/11/18) Physical Therapy Treatment Note PT-OP-A Visit Information Start: 05/20/18 09:52 Freq: Status: Active Protocol: Document 10/11/18 11:35 DCW (Rec: 10/11/18 12:00 DCW [id number]) Out-Patient Physical Therapy Visit Information Visit Information Visit Type Treatment Note Visit Note Pt arrived 20 minutes late Visit Start Time 11:35 Visit Stop Time 12:00 Total Visit Minutes 25 Visit Number 17 PT-OP-B Current Condition Start: 05/20/18 09:52 Freq: Status: Active Protocol: Document 05/20/18 10:06 EA (Rec: 05/20/18 10:27 EA [id number]) Current Condition History of Current Condition Onset Date November 2016 Current Complaints Right shoulder/arm pain History of Current Condition 2017 of lifting and moving injury and had formal PT at on January 2017 which resolved by 90%. Right Shoulder arm pain re-occurs last August of 2017 with no known injury and managed pain with OTC pain medication and biofreeze. Episodes of noturnal pain whenever patient slept to right side. Prior Treatments and Tests Formal PT at : 2016 with similar condition. Future Testing and Treatments Planned Ongoing cancer treament monthly scheduled. Hepa B- ongoing treatment. Treatment Goals Patient/Caregiver Goals Patient wants to completely eliminate pain Patient would like to know more HEP to pevent the recurrence Prior Functional Status Baseline Function- ADL's Independent Baseline Function- Mobility Independent Baseline Function- Work/School Retired Current Functional Impairments (Reported) Functional Limitations- ADL's Indep but difficulty with right hand overhead and lifting motion Functional Limitations- Mobility/Gait Indep Functional Limitations- Work/School Retired Functional Limitations- Recreation/ unable due to pain Hobbies PT-OP-C Subjective Start: 05/20/18 09:52 Freq: Status: Active Protocol: Document 10/11/18 11:35 DCW (Rec: 10/11/18 12:00 DCW [id number]) OP-PT Subjective Patient Comments Patient Comments Pt notes that she feels much better than when she began, will have occasional, very brief pain along right bicep muscle body. PT-OP-E Functional Tests Start: 05/20/18 09:52 Freq: Status: Active Protocol: Document 05/20/18 10:06 EA (Rec: 05/20/18 10:27 EA [id number]) Functional Tests Apley's Scratch Test Action 1: The subject is instructed to touch the opposite shoulder with his/her hand. This motion checks Glenohumeral adduction, internal rotation , horizontal adduction and scapular protraction Action 2: The subject is instructed to place his/her arm overhead and reach behind the neck to touch his/her upper back. This motion checks Glenohumeral abduction, external rotation and scapular upward rotation and elevation. Action 3: The subject puts his/her hand on the lower back and reaches upward as far as possible. This motion checks glenohumeral adduction, internal rotation and scapular retraction with downward rotation Action 1- Left opposite scap Action 1- Right top of opposite shoulder Action 2- Left T4 Action 2- Right T1 Action 3- Left T6 Action 3- Right T2 PT-OP-F Manual Assessment Start: 05/20/18 09:52 Freq: Status: Active Protocol: Document 05/20/18 10:06 EA (Rec: 05/20/18 10:27 EA [id number]) Manual Assessments Soft Tissue Assessment Soft Tissue Mobility Assessment Pectorals, anterior capsule , neck flexors, traps, shoulder internal rotators tightness Joint Mobility Assessment Joint Mobility Assessment Hypo to right GH joint PT-OP-J Posture/Palpation/Skin Start: 05/20/18 09:52 Freq: Status: Active Protocol: Document 05/20/18 10:06 EA (Rec: 05/20/18 10:27 EA [id number]) Posture Evaluation Position Standing Evaluation View ant/lat Head/C-Spine Posture Forward Head Arm Posture (L) Internally Rotated (R) Internally Rotated Palpation Assessment Location One Palpation Location Right INFRA,SUPRA, anterior shoulder grade 2/4 tenderness Palpation Findings Soft Tissue Tightness Tenderness PT-OP-K Range of Motion Start: 05/20/18 09:52 Freq: Status: Active Protocol: Document 07/27/18 17:25 EA (Rec: 07/29/18 13:26 EA [id number]) Shoulder Goniometric Range of Motion Shoulder Measured in Degrees Right Active Testing Position Standing Flexion 170 Extension 60 Abduction 170 External Rotation at 90 degrees 75 Abduction Internal Rotation Behind Back (text) T11 PT-OP-L Special Tests Start: 05/20/18 09:52 Freq: Status: Active Protocol: Document 05/20/18 10:06 EA (Rec: 05/20/18 10:27 EA [id number]) Special Tests Shoulder Special Tests Elevation Impingement Test Results negative Drop Arm Rotator Cuff Test Results Negative Aguayo Facundo Impingement Test Results Positive Lift-Off Rotator Cuff Test Results positive Empty Can Test Results postive Belly Press Test Results positive PT-OP-M Strength Start: 05/20/18 09:52 Freq: Status: Active Protocol: Document 07/27/18 17:25 EA (Rec: 07/29/18 13:26 EA [id number]) Shoulder Strength Shoulder Manual Muscle Testing Right Flexion 4 Good Extension 4 Good Abduction (C5) 4 Good Adduction 4+ Good+ External Rotation 3+ Fair+ Internal Rotation 4 Good PT-OP-Q Treatments Start: 05/20/18 09:52 Freq: Status: Active Protocol: Document 10/11/18 11:35 DCW (Rec: 10/11/18 12:00 DCW [id number]) Cardio Equipment Upper Body Ergometer (UBE) Duration (Minutes) 5 Height 5 Gym Equipment Cable Column (Body Solid) Lat Pull Down Resistance 20# Reps/Time 15x2 Rows Resistance 20# Reps/Time 15 x 2 sets Manual Therapy Treatment Soft Tissue Mobilization 1 Body Location Post shoulder: Infra, teres M, subscap Mobilization Type Cross-Friction Rolling Sustained Pressure Intensity/Depth Deep Body Position Sidelying PT-OP-R Modalities Start: 05/20/18 09:52 Freq: Status: Active Protocol: Document 10/05/18 15:11 EA (Rec: 10/05/18 15:16 EA [id number]) Hot Pack/Cold Pack Treatment Hot Pack Location right shoulder Patient Position Supine Treatment Duration (minutes) 10 Patient Tolerance Good PT-OP-T Assessment and Plan Start: 05/20/18 09:52 Freq: Status: Active Protocol: Document 10/11/18 11:35 DCW (Rec: 10/11/18 12:00 DCW [id number]) Physical Therapy Assessment Goals Four Impairment Impaired shoulder strength Detention Goal (LTG) Patient will exhibit shoulder flexors/abductors, rotators with at least 4/5 fo functional overhead reaching and lifting use. LTG Duration 4 wks (improving) Three Impairment Impaired shoulder Flexion/ABD/ ER ROM Detention Goal (LTG) Patient will exhibit normal shoulder ROM to improve functional mobility with no discomfort. LTG Duration 4 wks Two Impairment Impaired functional reach behind Detention Goal (LTG) Patient will reach behind don her bra without increase in symptoms LTG Duration 4 wks One Impairment Quich Dash UE functional scale 25 Detention Goal (LTG) Patient will have Quick Dash results of less than 10 LTG Duration 4 wks (progressing slow) Assessment Summary Assessment Pt continuing to progress, however still really feels it flair up a bit during TherEx . Pt will likely benefit from attending 1-2 more visits. Physical Therapy Plan Frequency and Duration Frequency of Treatment 2x/Week Duration of Treatment 6 Plan of Care Start Date 09/16/18 Plan of Care End Date 10/28/18 Therapeutic Interventions Therapeutic Interventions Home Exercise Program Joint Mobilizations Manual Therapy Patient/Caregiver Education Self-Care/Home Management Soft Tissue Mobilization Taping Therapeutic Activities Modalities Cold Pack/Ice Massage Electric Stimulation Hot Packs Ultrasound Next Visit Focus/Plan Next Note Type Treatment Note Next Visit Plan Manual PT to scapular boarders for pain, flexibility to shorten muscles.
--- NOTE | 2018-10-20 12:04 | PT.OTN ---
Current Diagnoses Pain in right arm (10/20/18) Physical Therapy Treatment Note PT-OP-A Visit Information Start: 05/20/18 09:52 Freq: Status: Active Protocol: Document 10/20/18 11:15 DCW (Rec: 10/20/18 12:03 DCW [id number]) Out-Patient Physical Therapy Visit Information Visit Information Visit Type Treatment Note Visit Start Time 11:15 Visit Stop Time 12:00 Total Visit Minutes 45 Visit Number 18 PT-OP-B Current Condition Start: 05/20/18 09:52 Freq: Status: Active Protocol: Document 05/20/18 10:06 EA (Rec: 05/20/18 10:27 EA [id number]) Current Condition History of Current Condition Onset Date November 2016 Current Complaints Right shoulder/arm pain History of Current Condition 2017 of lifting and moving injury and had formal PT at on January 2017 which resolved by 90%. Right Shoulder arm pain re-occurs last August of 2017 with no known injury and managed pain with OTC pain medication and biofreeze. Episodes of noturnal pain whenever patient slept to right side. Prior Treatments and Tests Formal PT at : 2016 with similar condition. Future Testing and Treatments Planned Ongoing cancer treament monthly scheduled. Hepa B- ongoing treatment. Treatment Goals Patient/Caregiver Goals Patient wants to completely eliminate pain Patient would like to know more HEP to pevent the recurrence Prior Functional Status Baseline Function- ADL's Independent Baseline Function- Mobility Independent Baseline Function- Work/School Retired Current Functional Impairments (Reported) Functional Limitations- ADL's Indep but difficulty with right hand overhead and lifting motion Functional Limitations- Mobility/Gait Indep Functional Limitations- Work/School Retired Functional Limitations- Recreation/ unable due to pain Hobbies PT-OP-C Subjective Start: 05/20/18 09:52 Freq: Status: Active Protocol: Document 10/20/18 11:15 DCW (Rec: 10/20/18 12:03 DCW [id number]) OP-PT Subjective Patient Comments Patient Comments Pt was on vacation the past week with friends, notes she had a very good time, and she went sailing for the first time in 20 years, and was using my arms to pull and lift and I held up very well. PT-OP-E Functional Tests Start: 05/20/18 09:52 Freq: Status: Active Protocol: Document 05/20/18 10:06 EA (Rec: 05/20/18 10:27 EA [id number]) Functional Tests Apley's Scratch Test Action 1- Left opposite scap Action 1- Right top of opposite shoulder Action 2- Left T4 Action 2- Right T1 Action 3- Left T6 Action 3- Right T2 PT-OP-F Manual Assessment Start: 05/20/18 09:52 Freq: Status: Active Protocol: Document 05/20/18 10:06 EA (Rec: 05/20/18 10:27 EA [id number]) Manual Assessments Soft Tissue Assessment Soft Tissue Mobility Assessment Pectorals, anterior capsule , neck flexors, traps, shoulder internal rotators tightness Joint Mobility Assessment Joint Mobility Assessment Hypo to right GH joint PT-OP-J Posture/Palpation/Skin Start: 05/20/18 09:52 Freq: Status: Active Protocol: Document 05/20/18 10:06 EA (Rec: 05/20/18 10:27 EA [id number]) Posture Evaluation Position Standing Evaluation View ant/lat Head/C-Spine Posture Forward Head Arm Posture (L) Internally Rotated (R) Internally Rotated Palpation Assessment Location One Palpation Location Right INFRA,SUPRA, anterior shoulder grade 2/4 tenderness Palpation Findings Soft Tissue Tightness Tenderness PT-OP-K Range of Motion Start: 05/20/18 09:52 Freq: Status: Active Protocol: Document 07/27/18 17:25 EA (Rec: 07/29/18 13:26 EA [id number]) Shoulder Goniometric Range of Motion Shoulder Right Active Testing Position Standing Flexion 170 Extension 60 Abduction 170 External Rotation at 90 degrees 75 Abduction Internal Rotation Behind Back (text) T11 PT-OP-L Special Tests Start: 05/20/18 09:52 Freq: Status: Active Protocol: Document 05/20/18 10:06 EA (Rec: 05/20/18 10:27 EA [id number]) Special Tests Shoulder Special Tests Elevation Impingement Test Results negative Drop Arm Rotator Cuff Test Results Negative Aguayo Facundo Impingement Test Results Positive Lift-Off Rotator Cuff Test Results positive Empty Can Test Results postive Belly Press Test Results positive PT-OP-M Strength Start: 05/20/18 09:52 Freq: Status: Active Protocol: Document 07/27/18 17:25 EA (Rec: 07/29/18 13:26 EA [id number]) Shoulder Strength Shoulder Manual Muscle Testing Right Flexion 4 Good Extension 4 Good Abduction (C5) 4 Good Adduction 4+ Good+ External Rotation 3+ Fair+ Internal Rotation 4 Good PT-OP-Q Treatments Start: 05/20/18 09:52 Freq: Status: Active Protocol: Document 10/20/18 11:15 DCW (Rec: 10/20/18 12:03 DCW [id number]) Cardio Equipment Upper Body Ergometer (UBE) Duration (Minutes) 5 Height 5 Gym Equipment Cable Column (Body Solid) Lat Pull Down Resistance 20# Reps/Time 2x10 Rows Resistance 20# Reps/Time 2x10 Therapeutic Exercises Sidelying Exercises 3 Sidelying Exercise Name ER Resistance 3# Reps/Minutes x4 2 Sidelying Exercise Name Horiz ABD Resistance 3# Reps/Minutes x 15 reps x 2 1 Sidelying Exercise Name Shoulder abduction Side right Resistance 3# Reps/Minutes x 15 reps x 2 Standing Exercises 4 Standing Exercise Name D1-D2 pattern Resistance 2 lbs Reps/Minutes x 10 reps x 2 sets Comments Knee slightly bent T-bar extension Resistance 4# Reps/Minutes 10x 2 sets 1 Standing Exercise Name T-bar flexion Resistance 4# Reps/Minutes x 15 reps Comments wall posture Manual Therapy Treatment Soft Tissue Mobilization 2 Body Location R Upper Trap Mobilization Type Sustained Pressure Trigger Point Release Intensity/Depth Deep Body Position Hooklying 1 Body Location Post shoulder: Infra, teres M, subscap Mobilization Type Cross-Friction Rolling Sustained Pressure Intensity/Depth Deep Body Position Sidelying PT-OP-R Modalities Start: 05/20/18 09:52 Freq: Status: Active Protocol: Document 10/20/18 11:15 DCW (Rec: 10/20/18 12:04 DCW [id number]) Electric Stimulation Electric Stimulation Interferential Current (IFC) Body Location Infra/Supra/Teres M Duration (Minutes) 15 Intensity 16 Patient Position Hooklying Combined With Heat/Cold Hot Pack PT-OP-T Assessment and Plan Start: 05/20/18 09:52 Freq: Status: Active Protocol: Document 10/20/18 11:15 DCW (Rec: 10/20/18 12:03 DCW [id number]) Physical Therapy Assessment Goals Four Impairment Impaired shoulder strength Intermediate Goal (LTG) Patient will exhibit shoulder flexors/abductors, rotators with at least 4/5 fo functional overhead reaching and lifting use. LTG Duration 4 wks (improving) Three Impairment Impaired shoulder Flexion/ABD/ ER ROM Intermediate Goal (LTG) Patient will exhibit normal shoulder ROM to improve functional mobility with no discomfort. LTG Duration 4 wks Two Impairment Impaired functional reach behind Floor Layer Helper Goal (LTG) Patient will reach behind don her bra without increase in symptoms LTG Duration 4 wks One Impairment Quich Dash UE functional scale 25 Intermediate Goal (LTG) Patient will have Quick Dash results of less than 10 LTG Duration 4 wks (progressing slow) Assessment Summary Assessment Pt making great progress, interested in trying to find a gym she can work out at following discharge Physical Therapy Plan Frequency and Duration Frequency of Treatment 2x/Week Duration of Treatment 6 Plan of Care Start Date 09/16/18 Plan of Care End Date 10/28/18 Therapeutic Interventions Therapeutic Interventions Home Exercise Program Joint Mobilizations Manual Therapy Patient/Caregiver Education Self-Care/Home Management Soft Tissue Mobilization Taping Therapeutic Activities Modalities Cold Pack/Ice Massage Electric Stimulation Hot Packs Ultrasound Next Visit Focus/Plan Next Note Type Treatment Note Next Visit Plan Manual PT to scapular boarders for pain, flexibility to shorten muscles.
--- NOTE | 2018-10-26 12:14 | PT.OTN ---
Current Diagnoses Pain in right arm (10/26/18) Physical Therapy Treatment Note PT-OP-A Visit Information Start: 05/20/18 09:52 Freq: Status: Active Protocol: Document 10/26/18 12:09 EA (Rec: 10/26/18 12:14 EA [id number]) Out-Patient Physical Therapy Visit Information Visit Information Visit Type Treatment Note Visit Start Time 10:30 Visit Stop Time 11:15 Total Visit Minutes 50 Visit Number 19 PT-OP-B Current Condition Start: 05/20/18 09:52 Freq: Status: Active Protocol: Document 05/20/18 10:06 EA (Rec: 05/20/18 10:27 EA [id number]) Current Condition History of Current Condition Onset Date November 2016 Current Complaints Right shoulder/arm pain History of Current Condition 2017 of lifting and moving injury and had formal PT at on January 2017 which resolved by 90%. Right Shoulder arm pain re-occurs last August of 2017 with no known injury and managed pain with OTC pain medication and biofreeze. Episodes of noturnal pain whenever patient slept to right side. Prior Treatments and Tests Formal PT at : 2016 with similar condition. Future Testing and Treatments Planned Ongoing cancer treament monthly scheduled. Hepa B- ongoing treatment. Treatment Goals Patient/Caregiver Goals Patient wants to completely eliminate pain Patient would like to know more HEP to pevent the recurrence Prior Functional Status Baseline Function- ADL's Independent Baseline Function- Mobility Independent Baseline Function- Work/School Retired Current Functional Impairments (Reported) Functional Limitations- ADL's Indep but difficulty with right hand overhead and lifting motion Functional Limitations- Mobility/Gait Indep Functional Limitations- Work/School Retired Functional Limitations- Recreation/ unable due to pain Hobbies PT-OP-C Subjective Start: 05/20/18 09:52 Freq: Status: Active Protocol: Document 10/26/18 12:09 EA (Rec: 10/26/18 12:14 EA [id number]) OP-PT Subjective Patient Comments Patient Comments Pt reports able to sail and perform rope pulling without increased of shoulder symptoms ; minor twinges and frequency is much lesser. Pt states okay to discharge if necessary. PT-OP-E Functional Tests Start: 05/20/18 09:52 Freq: Status: Active Protocol: Document 05/20/18 10:06 EA (Rec: 05/20/18 10:27 EA [id number]) Functional Tests Apley's Scratch Test Action 1- Left opposite scap Action 1- Right top of opposite shoulder Action 2- Left T4 Action 2- Right T1 Action 3- Left T6 Action 3- Right T2 PT-OP-F Manual Assessment Start: 05/20/18 09:52 Freq: Status: Active Protocol: Document 05/20/18 10:06 EA (Rec: 05/20/18 10:27 EA [id number]) Manual Assessments Soft Tissue Assessment Soft Tissue Mobility Assessment Pectorals, anterior capsule , neck flexors, traps, shoulder internal rotators tightness Joint Mobility Assessment Joint Mobility Assessment Hypo to right GH joint PT-OP-J Posture/Palpation/Skin Start: 05/20/18 09:52 Freq: Status: Active Protocol: Document 05/20/18 10:06 EA (Rec: 05/20/18 10:27 EA [id number]) Posture Evaluation Position Standing Evaluation View ant/lat Head/C-Spine Posture Forward Head Arm Posture (L) Internally Rotated (R) Internally Rotated Palpation Assessment Location One Palpation Location Right INFRA,SUPRA, anterior shoulder grade 2/4 tenderness Palpation Findings Soft Tissue Tightness Tenderness PT-OP-K Range of Motion Start: 05/20/18 09:52 Freq: Status: Active Protocol: Document 07/27/18 17:25 EA (Rec: 07/29/18 13:26 EA [id number]) Shoulder Goniometric Range of Motion Shoulder Right Active Testing Position Standing Flexion 170 Extension 60 Abduction 170 External Rotation at 90 degrees 75 Abduction Internal Rotation Behind Back (text) T11 PT-OP-L Special Tests Start: 05/20/18 09:52 Freq: Status: Active Protocol: Document 05/20/18 10:06 EA (Rec: 05/20/18 10:27 EA [id number]) Special Tests Shoulder Special Tests Elevation Impingement Test Results negative Drop Arm Rotator Cuff Test Results Negative Aguayo Facundo Impingement Test Results Positive Lift-Off Rotator Cuff Test Results positive Empty Can Test Results postive Belly Press Test Results positive PT-OP-M Strength Start: 05/20/18 09:52 Freq: Status: Active Protocol: Document 07/27/18 17:25 EA (Rec: 07/29/18 13:26 EA [id number]) Shoulder Strength Shoulder Manual Muscle Testing Right Flexion 4 Good Extension 4 Good Abduction (C5) 4 Good Adduction 4+ Good+ External Rotation 3+ Fair+ Internal Rotation 4 Good PT-OP-Q Treatments Start: 05/20/18 09:52 Freq: Status: Active Protocol: Document 10/26/18 12:09 EA (Rec: 10/26/18 12:14 EA [id number]) Cardio Equipment Upper Body Ergometer (UBE) Duration (Minutes) 5 Height 5 Gym Equipment Cable Column (Body Solid) Rows Resistance 20# Reps/Time 2x10 Therapeutic Exercises Sidelying Exercises 3 Sidelying Exercise Name ER Resistance 3# Reps/Minutes x4 1 Sidelying Exercise Name Shoulder abduction Side right Resistance 3# Reps/Minutes x 15 reps x 2 Standing Exercises 4 Standing Exercise Name D1-D2 pattern Resistance 2 lbs Reps/Minutes x 10 reps x 2 sets Comments Knee slightly bent T-bar extension Resistance 4# Reps/Minutes 10x 2 sets 1 Standing Exercise Name T-bar flexion Resistance 4# Reps/Minutes x 15 reps Comments wall posture Self-Care/Home Management Treatment Education Patient Education Home Exercise Program Joint Protection Pain Management Posture PT-OP-R Modalities Start: 05/20/18 09:52 Freq: Status: Active Protocol: Document 10/26/18 12:09 EA (Rec: 10/26/18 12:14 EA [id number]) Hot Pack/Cold Pack Treatment Hot Pack Location right shoulder Patient Position Supine Treatment Duration (minutes) 10 Patient Tolerance Good PT-OP-T Assessment and Plan Start: 05/20/18 09:52 Freq: Status: Active Protocol: Document 10/26/18 12:09 EA (Rec: 10/26/18 12:14 EA [id number]) Physical Therapy Assessment Assessment Summary Assessment Pt is discharge today due to no complaints at this time and at her request. Physical Therapy Plan Discharge Physical Therapy Discharge Reasons Patient Request
== END 2018-10-27 16:34 | disposition home or self-care (01) ==
LOC: PHYS 10:30
PROVIDERS: PCP Physician Assistant; Visit Provider Physician Assistant
DX: M79.601 Pain in right arm (principal)
CPT/HCPCS: 97010; 97014; 97110; 97140; 97161; 97535; G0283

== ENCOUNTER → 2018-10-28 16:37 | Outpatient (CLI) | payer MEDICARE, SELFPAY ==
[2018-10-28 18:09] LABS: Hematocrit 32.6 % (36-46); Hemoglobin 11.2 g/dL (12.0-16.0); Mean Corpuscular HGB Conc 34.4 % (30-36); Mean Corpuscular Hemoglobin 32.3 PG (26-34); Platelet Count 104 X10^3/uL (150-400); Red Blood Cell Count 3.47 X10^6/uL (4.0-5.2); Red Cell Distribution Width 14.1 % (11.6-14.8); White Blood Cell Count 15.5 X10^3/uL (4.5-11.0)
[2018-10-28 18:10] LABS: Add Manual Diff / Slide Review YES
[2018-10-28 18:20] LABS: Alanine Aminotransferase 60 IU/L (9-52); Albumin 4.3 g/dL (3.5-5.0); Albumin Globulin Ratio 2.4 (1.0-2.8); Alkaline Phosphatase 117 U/L (38-126); Aspartate Aminotransferase 40 IU/L (14-36); BUN Creatinine Ratio 18.8 (6-22); Bilirubin Total 0.5 mg/dL (0.2-1.3); Blood Urea Nitrogen 15 mg/dL (7-17); Calcium 9.1 mg/dL (8.4-10.2); Carbon Dioxide 25 mmol/L (22-32); Chloride 100 mmol/L (98-107); Estimated Glomerular Filt Rate > 60.0 mL/min (>60); Globulin 1.8 g/dL (1.7-4.1); Glucose 90 mg/dL (80-110); HEMOLYSIS < 15 (0-50); Potassium 4.1 mmol/L (3.4-5.1); Sodium 137 mmol/L (137-145); Total Protein 6.1 g/dL (6.3-8.2)
[2018-10-28 18:47] LABS: Neutrophils Absolute Manual 13020 /uL (3000-5900); Total Cells Counted 100
[2018-10-28 18:50] LABS: Dohle Bodies 1+; RBC Morphology Normal Morphology
== END ==
PROVIDERS: Family Provider Internal Medicine; PCP Internal Medicine Hematology & Oncology; Visit Provider Nurse Practitioner Adult Health
DX: C91.10 Chronic lymphocytic leukemia of B-cell type not having achieved remission (principal)
CPT/HCPCS: 36415; 80053; 85025; 86850

== ENCOUNTER → 2018-11-08 12:19 | Outpatient (CLI) | payer MEDICARE, SELFPAY ==
[2018-11-08 13:46] LABS: Thyroid Stimulating Hormone 2.31 uIU/mL (0.47-4.68)
[2018-11-08 14:04] LABS: Vitamin B12 > 1000 pg/mL (239-931)
[2018-11-12 22:46] LABS: Albumin 4.6 g/dL (3.8-4.8); Alpha 1 Globulin 0.4 g/dL (0.2-0.3); Alpha 2 Globulin 0.6 g/dL (0.5-0.9); Beta 1 Globulin 0.5 g/dL (0.4-0.6); Gamma Globulin 0.3 g/dL (0.8-1.7); Protein, Total 6.6 g/dL (6.1-8.1)
[2018-11-24 16:57] LABS: RPR Screen Nonreactive (Nonreactive)
== END ==
PROVIDERS: Family Provider Internal Medicine Hematology & Oncology; PCP Internal Medicine; Visit Provider Internal Medicine
DX: R41.4 Neurologic neglect syndrome (principal); G62.9 Polyneuropathy, unspecified; R41.3 Other amnesia
CPT/HCPCS: 36415; 82607; 82784; 84155; 84165; 84443; 86334; 86592

== ENCOUNTER → 2019-03-11 15:12 | Outpatient (ROUT) | payer MEDICARE, SELFPAY ==
[2019-03-11 15:21] LABS: Hematocrit 35.9 % (36-46); Hemoglobin 12.4 g/dL (12.0-16.0); Mean Corpuscular HGB Conc 34.5 % (30-36); Mean Corpuscular Volume 89.9 fL (80-100); Platelet Count 180 X10^3/uL (150-400); Red Cell Distribution Width 13.6 % (11.6-14.8); White Blood Cell Count 2.9 X10^3/uL (4.5-11.0)
[2019-03-11 15:29] LABS: Alanine Aminotransferase 36 IU/L (<35); Albumin 4.1 g/dL (3.5-5.0); Albumin Globulin Ratio 2.3 (1.0-2.8); Alkaline Phosphatase 76 U/L (38-126); Aspartate Aminotransferase 39 IU/L (14-36); BUN Creatinine Ratio 17.1 (6-22); Bilirubin Total 0.5 mg/dL (0.2-1.3); Blood Urea Nitrogen 12 mg/dL (7-17); Calcium 9.1 mg/dL (8.4-10.2); Carbon Dioxide 26 mmol/L (22-32); Chloride 102 mmol/L (98-107); Estimated Glomerular Filt Rate > 60.0 mL/min (>60); Globulin 1.8 g/dL (1.7-4.1); Glucose 67 mg/dL (80-110); HEMOLYSIS < 15 (0-50); Potassium 4.2 mmol/L (3.4-5.1); Sodium 138 mmol/L (137-145); Total Protein 5.9 g/dL (6.3-8.2)
[2019-03-11 15:57] LABS: Anisocytosis 1+; Neutrophils Absolute Manual 1856 /uL (3000-5900); Poikilocytosis 1+; Smudge Cells 1+; Total Cells Counted 100
[2019-03-11 15:58] LABS: Polychromasia 1+
[2019-03-11 16:18] LABS: Vitamin B12 351 pg/mL (239-931)
== END ==
PROVIDERS: Family Provider Internal Medicine Hematology & Oncology; PCP Internal Medicine; Visit Provider Internal Medicine
DX: R00.2 Palpitations (principal); C91.90 Lymphoid leukemia, unspecified not having achieved remission; R41.3 Other amnesia; L29.9 Pruritus, unspecified
CPT/HCPCS: 80053; 82607; 84443; 85025

== ENCOUNTER → 2019-03-25 09:22 | Outpatient (CLI) | payer MEDICARE, SELFPAY ==
--- NOTE | 2019-03-25 | DI.ECHO.S_ITS ---
[facility] +---------+ : : [address] : [place] [address] : : : : [id number] : : : : Phone: [phone]+ Echocardiogram Report + + :Name: ALBANIA SAUCEDO Study Date: 03/25/2019 Height: 52 in : :[facility] Weight: 128 lb : : Gender: Female BSA: 1.4 m2 : :: 1950 Age: 68 yrs BP: 126/62 mmHg: :Reason For Study: Palpitations : : Performed By: Danielle Weston : :Referring: RAIZA CELESTE L : + + Interpretation Summary The left ventricle is normal in size, wall thickness, and systolic function without any focal wall motion abnormalities with the ejection fraction estimated to be 65-70%. Diastolic parameters suggest probable normal left ventricular diastolic function and normal filling pressures. The right ventricle is normal in size and function. Pulmonary artery pressures cannot be estimated because of the lack of a measurable TR jet velocity but the IVC suggests a CVP of around 3 mmHg. The left atrium is borderline dilated. There is no significant valvular heart disease. Procedure: A two-dimensional transthoracic echocardiogram with color flow and Doppler was performed. The study quality was technically adequate. There is no prior echocardiogram noted for this patient. The heart rate ranged between 51-65 bpm during the study. Left Ventricle: The left ventricle is normal in size, wall thickness, and systolic function without any focal wall motion abnormalities. The ejection fraction is estimated to be 65-70%. Diastolic parameters suggest probable normal left ventricular diastolic function and normal filling pressures. Right Ventricle: The right ventricle is normal in size and function. Atria: The left atrium is borderline dilated. Right atrial size is normal. The interatrial septum is intact with no evidence for an atrial septal defect. Mitral Valve: The mitral valve is normal in structure and function. There is trace mitral regurgitation. Aortic Valve: The aortic valve is trileaflet. The aortic valve opens well. No aortic regurgitation is present. Tricuspid Valve: The tricuspid valve is normal in structure and function. No tricuspid regurgitation. Pulmonary artery pressures cannot be estimated because of the lack of a measurable TR jet velocity but the IVC suggests a CVP of around 3 mmHg. Pulmonic Valve: The pulmonic valve is normal in structure and function. There is trace pulmonic regurgitation. There is no significant valvular heart disease. Great Vessels: The aortic root is normal size. The dimensions of the ascending aorta are normal. The aortic arch is normal in size. The IVC is of normal diameter and collapses greater than 50% with a sniff. This suggests a low right atrial pressure of 3 mm Hg. Pericardium/ Pleura There is no pericardial effusion. There is no pleural effusion. MMode/2D Measurements & Calculations LVIDd: 4.3 cm Ao root diam: 3.0 cm LVIDs: 2.3 cm Aortic Jxn: 2.4 cm FS: 46.6 % asc Aorta Diam: 3.0 cm EPSS: 0.23 cm Ao Arch Diam (Prox Trans): 2.1 cm IVSd: 0.94 cm LVPWd: 0.65 cm LV fernández. diameter/BSA (cm/m^2): 3.1 LV sys. diameter/BSA (cm/m^2): 1.6 LA dimension: 3.4 cm RA long axis: 4.0 cm LA A2 area: 18.8 cm2 RA area: 11.8 cm2 LA A4 area: 15.2 cm2 RA vol: 29.4 ml LA length (vol): 4.9 cm RA : 21.1 ml/m2 LA vol: 49.9 ml IVC diam: 1.4 cm LA vol index: 35.8 ml/m2 RVDd major: 6.1 cm RVD1 (basal): 2.4 cm RVD2 (mid): 1.9 cm Doppler Measurements & Calculations Ao V2 max: 123.8 cm/sec MV E max brennen: 90.9 cm/sec Ao V2 mean: 86.2 cm/sec MV A max brennen: 84.7 cm/sec Ao max P.1 mmHg MV E/A: 1.1 Ao mean P.4 mmHg Med Peak E' Brennen: 6.5 cm/sec Ao V2 VTI: 29.2 cm E/E' med: 13.9 Lat Peak E' Brennen: 10.1 cm/sec E/E' lat: 9.0 E/e' average: 11.5 MV dec time: 0.22 sec MV P1/2t: 67.2 msec PA Accel Time: 0.12 sec MV P1/2t max brennen: 92.1 cm/sec MVA(P1/2t): 3.3 cm2 Reading Physician:MONIQUE
== END ==
PROVIDERS: Family Provider Internal Medicine Hematology & Oncology; PCP Internal Medicine; Visit Provider Internal Medicine
DX: R00.2 Palpitations (principal)
CPT/HCPCS: 93306

== ENCOUNTER → 2019-04-20 10:16 | Outpatient (CLI) | payer MEDICARE, SELFPAY ==
--- NOTE | 2019-04-22 14:56 | PM.TREADMILL ---
Cardiac Stress Test Report Referral & Results Date Patient Seen: 04/22/19 Requesting provider: Beverley Brunner Indication: Palpitations Rest ECG: Unremarkable Procedure Note: Today following both written and verbal informed consent the patient was exercised according to a standard Kolby protocol patient went for a total of 7 minutes 6 seconds achieving a maximum heart rate of 120 maximum systolic blood pressure of 178. This is approximately 10.1 METS. Exercise was terminated at this point because of patient unable to continue. Patient was also given Cardiolite through a previously started Hep-Lock IV by the diagnostic imaging staff approximately 1 minute prior to the cessation of exercise. With exercise patient did blunted heart rate response never cheating her maximum heart rate despite being on the treadmill longer than his typical. No ST-T segment changes however Functional aerobic impairment rated-20% on the active scale or 20% better than average Early with exercise and early in the recovery portion of the test patient had some either sinus arrest sinus arrhythmia or potentially second-degree AV block type 1 (Wenckebach block) Impression: No clear evidence of ischemia Excellent exercise capacity Blunted heart rate response Dysrhythmia as above Please note: Actual ECG tracings can be found in the PACS system.
--- NOTE | 2019-04-25 08:38 | DI.NM.S_ITS ---
DATE OF SERVICE: 04/20/2019 ORDERING PHYSICIAN: Beverley Brunner MD PROCEDURE PERFORMED: Exercise treadmill stress and rest myocardial perfusion imaging study with gating to assess ejection fraction and regional wall motion. INDICATIONS: The patient is a 68-year-old female with exertional palpitations. EXERCISE TREADMILL TESTING: The patient was able to exercise for 7 minutes 6 seconds on a standard Kolby protocol, suggesting good exercise capacity with an ANKIT of -20%. She had a mildly blunted heart rate response to exercise, achieving a maximum heart rate of 120 bpm (79% of her predicted maximum), which reduces the sensitivity to the study slightly. She had a normal blood pressure response. She had no chest pain. Her resting ECG is normal with sinus rhythm with fairly prominent P-waves. With exercise, she developed some subtle nonspecific ST depression that is predominantly upsloping. Her P-wave morphology suggests possible right atrial enlargement. She has occasional brief pauses up to 1.2 seconds, which appears to be sinus node exit block that persists into recovery, but there are no prolonged pauses or profound bradycardia. She was injected with 19.6 mCi of technetium-99 Myoview while at rest and was imaged 30 minutes later using a gated SPECT acquisition protocol. She returned 2 days later and was injected with 22.3 mCi of technetium-99 Myoview after 6 minutes of exercise at a heart rate of 115 bpm. She was imaged 15 minutes later using a gated SPECT acquisition protocol. FINDINGS: 1. Raw data: There is fairly good myocardial tracer uptake. Mild breast shadows are noted. Her lung/heart ratio is borderline increased at 0.43, which can be a sign of pulmonary congestion but clinical correlation is recommended. TID ratio is normal at 0.91. 2. Quantitative gated SPECT: Post-stress ejection fraction is estimated at 87% without any focal wall motion abnormality, and specifically the anteroseptal area has normal contractility. Resting ejecting fraction is 82% with an end- diastolic volume of 65 mL. 3. Myocardial perfusion imaging: Post-stress supine images show a fairly normal myocardial perfusion pattern with a very subtle defect in the mid and distal anterior septum, sparing the anterior wall, in a pattern that likely reflects breast attenuation artifact, supported by its complete resolution on the prone images. There are no other perfusion defects. The resting images show an identical perfusion pattern without any clear areas of improvement. CONCLUSION: 1. Probable normal myocardial perfusion study although with slightly reduced sensitivity because of a mildly blunted heart rate response to exercise. 2. Subtle, small fixed distal anteroseptal defect that resolves on prone imaging, most consistent with breast attenuation artifact. There is no evidence for significant myocardial ischemia or pervious myocardial infarction. 3. Normal left ventricular systolic function without focal wall motion abnormality. Increased lung uptake can be a sign of pulmonary congestion but is nonspecific and clinical correlation is recommended. 4. Good exercise capacity without angina or significant ECG changes of ischemia. It is notable that her P-wave morphology evolves into a pattern of right atrial enlargement and is associated with occasional sinus node exit block, suggesting possible right atrial dysfunction. Clinical correlation is recommended. JenhuanLuis Enriquemyah - RS/fn/ts doc#: [id number]/job#: [id number] dd: 04/22/2019 16:26:00 dt: 04/23/2019 07:52:00 DICTATING MD/COPIES TO: García Alex MD; Beverley Brunner MD; Sheila Sullivan MD COPIES MNE: JONES CROWE
== END ==
PROVIDERS: Family Provider Internal Medicine Hematology & Oncology; PCP Internal Medicine; Visit Provider Internal Medicine
DX: R00.2 Palpitations (principal); I49.9 Cardiac arrhythmia, unspecified
CPT/HCPCS: 78452; 93016; 93017; 93018; A9502

== ENCOUNTER → 2019-07-01 15:19 | Outpatient (CLI) | payer MEDICARE, SELFPAY ==
[2019-07-01 17:05] LABS: Add Manual Diff / Slide Review NO; Basophils Absolute Auto 0 /uL (0-100); Basophils Percent Auto 0.7 % (0-2); Eosinophils Absolute Auto 100 /uL (0-450); Eosinophils Percent Auto 2.3 % (2-4); Hematocrit 33.5 % (36-46); Hemoglobin 12.1 g/dL (12.0-16.0); Lymphocytes Absolute Auto 900 /uL (1100-4500); Mean Corpuscular HGB Conc 36.1 % (30-36); Mean Corpuscular Hemoglobin 31.2 PG (26-34); Mean Corpuscular Volume 86.4 fL (80-100); Monocytes Absolute Auto 300 /uL (0-900); Monocytes Percent Auto 6.6 % (3-14); Neutrophils Absolute Auto 3200 /uL (1500-7000); Neutrophils Percent Auto 71.4 % (50-75); Platelet Count 177 X10^3/uL (150-400); Red Blood Cell Count 3.88 X10^6/uL (4.0-5.2); Red Cell Distribution Width 13.7 % (11.6-14.8); White Blood Cell Count 4.5 X10^3/uL (4.5-11.0)
[2019-07-01 17:27] LABS: HEMOLYSIS < 15 (0-50)
[2019-07-01 17:36] LABS: Alanine Aminotransferase 24 IU/L (<35); Albumin 4.2 g/dL (3.5-5.0); Albumin Globulin Ratio 1.8 (1.0-2.8); Alkaline Phosphatase 82 U/L (38-126); Aspartate Aminotransferase 30 IU/L (14-36); BUN Creatinine Ratio 22.9 (6-22); Bilirubin Total 0.4 mg/dL (0.2-1.3); Blood Urea Nitrogen 16 mg/dL (7-17); Calcium 8.9 mg/dL (8.4-10.2); Carbon Dioxide 21 mmol/L (22-32); Chloride 103 mmol/L (98-107); Estimated Glomerular Filt Rate > 60.0 mL/min (>60); Gamma Glutamyl Transpeptidase 20 U/L (12-43); Globulin 2.3 g/dL (1.7-4.1); Glucose 165 mg/dL (80-110); Potassium 3.9 mmol/L (3.4-5.1); Sodium 135 mmol/L (137-145); Total Protein 6.5 g/dL (6.3-8.2)
[2019-07-01 17:39] LABS: Erythrocyte Sedimentation Rate 10 MM/HR (0-20)
[2019-07-01 18:14] LABS: C-Reactive Protein Quant < 0.5 mg/dL (<1.0)
[2019-07-01 18:22] LABS: Vitamin B12 371 pg/mL (239-931)
[2019-07-01 18:27] LABS: NT-proBNP (BNP-Adult 18+) 206 pg/mL (<125)
== END ==
PROVIDERS: Family Provider Internal Medicine Hematology & Oncology; PCP Internal Medicine; Referring Provider Internal Medicine; Visit Provider Internal Medicine
DX: B18.1 Chronic viral hepatitis B without delta-agent (principal); R53.83 Other fatigue; R06.00 Dyspnea, unspecified; E53.8 Deficiency of other specified B group vitamins
CPT/HCPCS: 36415; 80053; 82607; 82977; 83880; 85025; 85651; 86140; 87517

== ENCOUNTER → 2019-08-12 11:43 | Outpatient (CLI) | payer MEDICARE, SELFPAY ==
[2019-08-12 12:06] LABS: Add Manual Diff / Slide Review NO; Basophils Absolute Auto 0 /uL (0-100); Basophils Percent Auto 0.1 % (0-2); Eosinophils Absolute Auto 100 /uL (0-450); Eosinophils Percent Auto 2.9 % (2-4); Hematocrit 37.3 % (36-46); Lymphocytes Absolute Auto 900 /uL (1100-4500); Lymphocytes Percent Auto 23.8 % (25-40); Mean Corpuscular HGB Conc 34.7 % (30-36); Mean Corpuscular Hemoglobin 30.4 PG (26-34); Mean Corpuscular Volume 87.5 fL (80-100); Monocytes Absolute Auto 400 /uL (0-900); Neutrophils Absolute Auto 2500 /uL (1500-7000); Neutrophils Percent Auto 63.2 % (50-75); Platelet Count 182 X10^3/uL (150-400); Red Blood Cell Count 4.26 X10^6/uL (4.0-5.2); Red Cell Distribution Width 13.6 % (11.6-14.8)
[2019-08-12 12:22] LABS: BUN Creatinine Ratio 18.2 (6-22); Blood Urea Nitrogen 16 mg/dL (7-17); Calcium 9.5 mg/dL (8.4-10.2); Carbon Dioxide 25 mmol/L (22-32); Chloride 104 mmol/L (98-107); Estimated Glomerular Filt Rate > 60.0 mL/min (>60); Glucose 97 mg/dL (80-110); HEMOLYSIS < 15 (0-50); Lactate Dehydrogenase 445 U/L (313-618); Potassium 4.7 mmol/L (3.4-5.1); Sodium 137 mmol/L (137-145)
== END ==
PROVIDERS: Family Provider Internal Medicine Hematology & Oncology; PCP Internal Medicine; Referring Provider Internal Medicine Hematology & Oncology; Visit Provider Internal Medicine Hematology & Oncology
DX: C91.10 Chronic lymphocytic leukemia of B-cell type not having achieved remission (principal)
CPT/HCPCS: 36415; 80048; 83615; 84550; 85025; 87517

== ENCOUNTER → 2019-08-30 13:26 | Outpatient (CLI) | payer MEDICARE, SELFPAY ==
--- NOTE | 2019-08-30 | DI.US.S_ITS ---
PROCEDURE: US ABDOMEN LIMITED INDICATIONS: UNSPECIFIED VIRAL HEP B W/O HEPATIC COMA TECHNIQUE: Real-time scanning was performed of the abdominal and retroperitoneal organs, with image documentation. COMPARISON: [facility], [place], NECK/CHEST/ABD/PEL W CONTRAST, 06/23/2016, 12:02. FINDINGS: Liver: Liver is normal in size and demonstrates mildly increased echotexture. Gallbladder: There are gallstones. No gallbladder wall thickening, pericholecystic fluid or sonographic Vu's sign. Biliary ducts: Intrahepatic bile ducts are non-dilated. Pancreas: Visualized portions of the pancreas are sonographically normal. Miscellaneous: No free abdominal fluid. IMPRESSION: 1. Diffusely increased hepatic echotexture, which could be secondary to hepatitis. No focal hepatic masses identified. Dictated by: Nichole Moreno M.D. on 08/31/2019 at 9:44 Approved by: Nichole Moreno M.D. on 08/31/2019 at 9:48
[2019-08-30 14:23] LABS: Add Manual Diff / Slide Review NO; Basophils Absolute Auto 0 /uL (0-100); Basophils Percent Auto 0.9 % (0-2); Eosinophils Absolute Auto 100 /uL (0-450); Eosinophils Percent Auto 2.3 % (2-4); Hematocrit 34.9 % (36-46); Hemoglobin 12.1 g/dL (12.0-16.0); Lymphocytes Absolute Auto 1000 /uL (1100-4500); Lymphocytes Percent Auto 22.2 % (25-40); Mean Corpuscular HGB Conc 34.7 % (30-36); Mean Corpuscular Hemoglobin 30.5 PG (26-34); Mean Corpuscular Volume 87.8 fL (80-100); Monocytes Absolute Auto 300 /uL (0-900); Monocytes Percent Auto 6.8 % (3-14); Neutrophils Absolute Auto 2900 /uL (1500-7000); Neutrophils Percent Auto 67.8 % (50-75); Platelet Count 168 X10^3/uL (150-400); Red Blood Cell Count 3.97 X10^6/uL (4.0-5.2); Red Cell Distribution Width 13.5 % (11.6-14.8); White Blood Cell Count 4.4 X10^3/uL (4.5-11.0)
[2019-08-30 14:35] LABS: BUN Creatinine Ratio 14.8 (6-22); Blood Urea Nitrogen 12 mg/dL (7-17); Calcium 9.1 mg/dL (8.4-10.2); Carbon Dioxide 24 mmol/L (22-32); Chloride 102 mmol/L (98-107); Estimated Glomerular Filt Rate > 60.0 mL/min (>60); Glucose 135 mg/dL (80-110); HEMOLYSIS < 15 (0-50); Lactate Dehydrogenase 461 U/L (313-618); Potassium 4.3 mmol/L (3.4-5.1); Sodium 135 mmol/L (137-145); Uric Acid 4.3 mg/dL (2.5-6.2)
[2019-08-30 17:04] LABS: Vitamin D 25 Hydroxy (D3) 43.1 ng/mL (30.0-100.0)
[2019-08-31 02:46] LABS: Hepatitis BE Antigen Positive (Negative)
[2019-08-31 06:36] LABS: Alpha Fetoprotein 1.4 ng/mL (0.0-8.3)
[2019-09-01 11:10] LABS: Hepatitis Be Antibody Negative (Negative)
== END ==
PROVIDERS: Family Provider Internal Medicine Hematology & Oncology; PCP Internal Medicine; Visit Provider Internal Medicine Hematology & Oncology
DX: C91.10 Chronic lymphocytic leukemia of B-cell type not having achieved remission (principal); B19.10 Unspecified viral hepatitis B without hepatic coma; K80.20 Calculus of gallbladder without cholecystitis without obstruction; E55.9 Vitamin D deficiency, unspecified
CPT/HCPCS: 36415; 76705; 80048; 82105; 82306; 83615; 84550; 85025; 86707; 87350; 87517

== ENCOUNTER → 2019-09-30 14:21 | Outpatient (CLI) | payer MEDICARE, SELFPAY ==
[2019-09-30 16:10] LABS: Add Manual Diff / Slide Review NO; Basophils Absolute Auto 0 /uL (0-100); Basophils Percent Auto 0.8 % (0-2); Eosinophils Absolute Auto 100 /uL (0-450); Eosinophils Percent Auto 2.8 % (2-4); Hematocrit 31.2 % (36-46); Hemoglobin 11.1 g/dL (12.0-16.0); Lymphocytes Absolute Auto 1400 /uL (1100-4500); Mean Corpuscular HGB Conc 35.5 % (30-36); Mean Corpuscular Hemoglobin 31.7 PG (26-34); Mean Corpuscular Volume 89.2 fL (80-100); Monocytes Absolute Auto 300 /uL (0-900); Monocytes Percent Auto 7.5 % (3-14); Neutrophils Absolute Auto 2300 /uL (1500-7000); Neutrophils Percent Auto 54.9 % (50-75); Platelet Count 201 X10^3/uL (150-400); Red Cell Distribution Width 15.3 % (11.6-14.8); White Blood Cell Count 4.2 X10^3/uL (4.5-11.0)
[2019-09-30 16:23] LABS: BUN Creatinine Ratio 16.5 (6-22); Blood Urea Nitrogen 14 mg/dL (7-17); Calcium 9.4 mg/dL (8.4-10.2); Carbon Dioxide 23 mmol/L (22-32); Chloride 105 mmol/L (98-107); Estimated Glomerular Filt Rate > 60.0 mL/min (>60); Glucose 102 mg/dL (80-110); HEMOLYSIS < 15 (0-50); Lactate Dehydrogenase 626 U/L (313-618); Potassium 4.1 mmol/L (3.4-5.1); Sodium 137 mmol/L (137-145); Uric Acid 4.7 mg/dL (2.5-6.2)
[2019-10-06 17:08] LABS: Hepatitis B Virus DNA 1240 IU/mL (.); log 10 HBV 3.093 (.)
== END ==
PROVIDERS: Family Provider Internal Medicine Hematology & Oncology; PCP Internal Medicine; Referring Provider Internal Medicine Hematology & Oncology; Visit Provider Internal Medicine Hematology & Oncology
DX: C91.10 Chronic lymphocytic leukemia of B-cell type not having achieved remission (principal)
CPT/HCPCS: 36415; 80048; 83615; 84550; 85025; 87517

== ENCOUNTER → 2019-10-03 13:28 | Outpatient (CLI) | payer MEDICARE, SELFPAY ==
[2019-10-03 13:45] LABS: RBC Urine None Seen (0-5/HPF)
[2019-10-03 14:30] LABS: Appearance Urine UA CLEAR; Bilirubin Urine UA NEGATIVE (NEGATIVE); Color Urine UA YELLOW; Glucose Urine UA NEGATIVE (Negative); Ketones Urine UA NEGATIVE (NEGATIVE); Leukocyte Esterase Urine UA TRACE (NEGATIVE); Nitrite Urine UA NEGATIVE (Negative); Occult Blood Urine UA NEGATIVE (Negative); Protein Urine UA NEGATIVE (Negative); Urobilinogen Urine UA 0.2 E.U./dL (0.2)
[2019-10-03 14:34] LABS: Add Manual Diff / Slide Review NO; Basophils Absolute Auto 0 /uL (0-100); Basophils Percent Auto 0.9 % (0-2); Eosinophils Absolute Auto 100 /uL (0-450); Eosinophils Percent Auto 2.4 % (2-4); Hematocrit 32.3 % (36-46); Hemoglobin 11.5 g/dL (12.0-16.0); Lymphocytes Absolute Auto 1100 /uL (1100-4500); Lymphocytes Percent Auto 34.9 % (25-40); Mean Corpuscular HGB Conc 35.5 % (30-36); Mean Corpuscular Hemoglobin 31.6 PG (26-34); Monocytes Absolute Auto 300 /uL (0-900); Monocytes Percent Auto 9.7 % (3-14); Neutrophils Absolute Auto 1700 /uL (1500-7000); Neutrophils Percent Auto 52.1 % (50-75); Platelet Count 175 X10^3/uL (150-400); Red Blood Cell Count 3.63 X10^6/uL (4.0-5.2); Red Cell Distribution Width 14.9 % (11.6-14.8); White Blood Cell Count 3.3 X10^3/uL (4.5-11.0)
[2019-10-03 14:43] LABS: Bacteria Urine Occasional (0-1); Culture Indicated Urine Specimen Cultured; Squamous Epithelial Cell Urine 0-1 /HPF (0-5/HPF); WBC Urine 0-1/HPF (0-5/HPF)
[2019-10-03 14:52] LABS: HEMOLYSIS < 15 (0-50); Iron 80 ug/dL (37-170)
[2019-10-03 14:55] LABS: Alanine Aminotransferase 21 IU/L (<35); Albumin 4.3 g/dL (3.5-5.0); Albumin Globulin Ratio 1.9 (1.0-2.8); Alkaline Phosphatase 63 U/L (38-126); Amylase 106 U/L (30-110); Aspartate Aminotransferase 29 IU/L (14-36); BUN Creatinine Ratio 15.1 (6-22); Bilirubin Total 0.5 mg/dL (0.2-1.3); Blood Urea Nitrogen 11 mg/dL (7-17); Calcium 9.1 mg/dL (8.4-10.2); Carbon Dioxide 22 mmol/L (22-32); Chloride 107 mmol/L (98-107); Estimated Glomerular Filt Rate > 60.0 mL/min (>60); Globulin 2.3 g/dL (1.7-4.1); Glucose 89 mg/dL (80-110); HEMOLYSIS < 15 (0-50); Lipase 209 U/L (23-300); Potassium 4.2 mmol/L (3.4-5.1); Sodium 138 mmol/L (137-145); Total Protein 6.6 g/dL (6.3-8.2)
[2019-10-03 15:03] LABS: Percent Iron Saturation 26 % (15-50); Total Iron Binding Capacity 312 ug/dL (265-497); Transferrin 230 mg/dL (206-381)
[2019-10-03 15:30] LABS: Ferritin 54 ng/mL (11-264)
[2019-10-07 02:36] LABS: LDH 247 IU/L (119-226)
== END ==
PROVIDERS: Family Provider Internal Medicine Hematology & Oncology; PCP Internal Medicine; Referring Provider Internal Medicine Hematology & Oncology; Visit Provider Internal Medicine
DX: R10.12 Left upper quadrant pain (principal); R74.0 Nonspecific elevation of levels of transaminase and lactic acid dehydrogenase [LDH]; R10.11 Right upper quadrant pain; D64.9 Anemia, unspecified
CPT/HCPCS: 36415; 80053; 81001; 82150; 82728; 83540; 83550; 83615; 83625; 83690; 85025; 85045; 87086

== ENCOUNTER → 2019-10-17 15:08 | Outpatient (CLI) | payer MEDICARE, SELFPAY ==
[2019-10-17 16:17] LABS: Add Manual Diff / Slide Review NO; Basophils Absolute Auto 0 /uL (0-100); Basophils Percent Auto 0.7 % (0-2); Eosinophils Absolute Auto 100 /uL (0-450); Eosinophils Percent Auto 2.8 % (2-4); Hematocrit 31.5 % (36-46); Hemoglobin 11.4 g/dL (12.0-16.0); Lymphocytes Absolute Auto 1200 /uL (1100-4500); Lymphocytes Percent Auto 29.2 % (25-40); Mean Corpuscular HGB Conc 36.1 % (30-36); Mean Corpuscular Volume 88.5 fL (80-100); Monocytes Absolute Auto 300 /uL (0-900); Monocytes Percent Auto 8.3 % (3-14); Neutrophils Absolute Auto 2400 /uL (1500-7000); Platelet Count 147 X10^3/uL (150-400); Red Blood Cell Count 3.55 X10^6/uL (4.0-5.2)
[2019-10-17 16:52] LABS: BUN Creatinine Ratio 17.1 (6-22); Blood Urea Nitrogen 13 mg/dL (7-17); Calcium 9.2 mg/dL (8.4-10.2); Carbon Dioxide 25 mmol/L (22-32); Chloride 105 mmol/L (98-107); Estimated Glomerular Filt Rate > 60.0 mL/min (>60); Glucose 89 mg/dL (80-110); HEMOLYSIS < 15 (0-50); Lactate Dehydrogenase 491 U/L (313-618); Potassium 4.3 mmol/L (3.4-5.1); Sodium 136 mmol/L (137-145); Uric Acid 4.2 mg/dL (2.5-6.2)
[2019-10-19 20:17] LABS: Hepatitis B Virus DNA 370 IU/mL (.); log 10 HBV 2.568 (.)
== END ==
PROVIDERS: Family Provider Internal Medicine Hematology & Oncology; PCP Internal Medicine; Referring Provider Internal Medicine Hematology & Oncology; Visit Provider Internal Medicine Hematology & Oncology
DX: C91.10 Chronic lymphocytic leukemia of B-cell type not having achieved remission (principal)
CPT/HCPCS: 36415; 80048; 83615; 84550; 85025; 87517

== ENCOUNTER → 2019-11-22 11:54 | Outpatient (CLI) | payer MEDICARE, SELFPAY ==
[2019-11-22 12:35] LABS: Add Manual Diff / Slide Review NO; Basophils Absolute Auto 0 /uL (0-100); Basophils Percent Auto 1.1 % (0-2); Eosinophils Absolute Auto 100 /uL (0-450); Eosinophils Percent Auto 2.8 % (2-4); Hematocrit 32.7 % (36-46); Hemoglobin 11.4 g/dL (12.0-16.0); Lymphocytes Absolute Auto 1000 /uL (1100-4500); Lymphocytes Percent Auto 30.2 % (25-40); Mean Corpuscular HGB Conc 34.9 % (30-36); Mean Corpuscular Hemoglobin 30.5 PG (26-34); Mean Corpuscular Volume 87.3 fL (80-100); Monocytes Absolute Auto 300 /uL (0-900); Monocytes Percent Auto 8.7 % (3-14); Neutrophils Absolute Auto 2000 /uL (1500-7000); Neutrophils Percent Auto 57.2 % (50-75); Platelet Count 149 X10^3/uL (150-400); Red Blood Cell Count 3.75 X10^6/uL (4.0-5.2); Red Cell Distribution Width 13.2 % (11.6-14.8); White Blood Cell Count 3.5 X10^3/uL (4.5-11.0)
[2019-11-22 13:28] LABS: Alanine Aminotransferase 16 IU/L (<35); Albumin 4.2 g/dL (3.5-5.0); Albumin Globulin Ratio 2.5 (1.0-2.8); Alkaline Phosphatase 65 U/L (38-126); Aspartate Aminotransferase 26 IU/L (14-36); BUN Creatinine Ratio 17.4 (6-22); Bilirubin Total 0.5 mg/dL (0.2-1.3); Blood Urea Nitrogen 12 mg/dL (7-17); Calcium 9.4 mg/dL (8.4-10.2); Carbon Dioxide 27 mmol/L (22-32); Chloride 101 mmol/L (98-107); Estimated Glomerular Filt Rate > 60.0 mL/min (>60); Globulin 1.7 g/dL (1.7-4.1); Glucose 97 mg/dL (80-110); HEMOLYSIS < 15 (0-50); Lactate Dehydrogenase 486 U/L (313-618); Potassium 4.7 mmol/L (3.4-5.1); Sodium 133 mmol/L (137-145); Total Protein 5.9 g/dL (6.3-8.2); Uric Acid 4.1 mg/dL (2.5-6.2)
[2019-11-22 13:33] LABS: NT-proBNP (BNP-Adult 18+) 271 pg/mL (<125)
[2019-11-25 23:36] LABS: Hepatitis B Virus DNA 160 IU/mL (.); log 10 HBV 2.204 (.)
== END ==
PROVIDERS: Family Provider Internal Medicine Hematology & Oncology; PCP Internal Medicine; Referring Provider Internal Medicine Hematology & Oncology; Visit Provider Internal Medicine Hematology & Oncology
DX: C91.10 Chronic lymphocytic leukemia of B-cell type not having achieved remission (principal); B19.10 Unspecified viral hepatitis B without hepatic coma; R79.89 Other specified abnormal findings of blood chemistry
CPT/HCPCS: 36415; 80053; 83615; 83880; 84550; 85025; 87517

== ENCOUNTER → 2020-02-18 10:42 | Outpatient (CLI) | payer MEDICARE, SELFPAY ==
[2020-02-20 05:58] LABS: COVID19 Sendout Not Detected (Not Detect)
== END ==
PROVIDERS: Family Provider Internal Medicine Hematology & Oncology; PCP Internal Medicine; Visit Provider Physician Assistant
DX: Z11.59 Encounter for screening for other viral diseases (principal)
CPT/HCPCS: 87635

== ENCOUNTER → 2020-05-14 12:00 | Outpatient (CLI) | payer MEDICARE, SELFPAY ==
--- NOTE | 2020-05-14 | DI.RAD.S_ITS ---
PROCEDURE: XR HIP W PEL IF DONE LT MIN 4V INDICATIONS: PAIN IN RIGHT HIP TECHNIQUE: AP pelvis with lateral view(s) of the bilateral hip(s). COMPARISON: None. FINDINGS: Bones: No fractures or dislocations. Pelvic ring appears intact. No suspicious bony lesions. Soft tissues: The visualized bowel gas pattern is normal. No suspicious soft tissue calcifications. IMPRESSION: No trauma found but there is a mild degree of hip joint osteoarthritis, symmetric bilaterally. Note is made of lower lumbosacral spine convex leftward scoliosis centered at L4. Dictated by: Paul Fabian M.D. on 05/14/2020 at 13:43 Approved by: Paul Fabian M.D. on 05/14/2020 at 13:44
== END ==
PROVIDERS: Family Provider Internal Medicine Hematology & Oncology; PCP Internal Medicine; Referring Provider Internal Medicine; Visit Provider Internal Medicine
DX: M25.551 Pain in right hip (principal); M16.0 Bilateral primary osteoarthritis of hip; M41.86 Other forms of scoliosis, lumbar region
CPT/HCPCS: 73521

== ENCOUNTER → 2020-05-19 14:25 | Outpatient (CLI) | payer MEDICARE, SELFPAY ==
--- NOTE | 2020-05-19 | DI.MG.S_ITS ---
BILATERAL DIGITAL SCREENING MAMMOGRAM 3D/2D WITH CAD: 05/19/2020 CLINICAL: Routine screening. Comparison is made to exams dated: 06/04/2018 mammogram, 04/18/2009 mammogram, and 05/10/2004 mammogram - [facility]. The tissue of both breasts is heterogeneously dense. This may lower the sensitivity of mammography. Current study was also evaluated with a Computer Aided Detection (CAD) system. No significant masses, calcifications, or other findings are seen in either breast. There has been no significant interval change. IMPRESSION: NEGATIVE There is no mammographic evidence of malignancy. A 1 year screening mammogram is recommended. This exam was interpreted at Station ID: [id number]. NOTE: For mammograms, a report in lay terms will be sent to the patient. Approximately 15% of breast malignancies will not be visualized mammographically. In the management of a palpable breast mass, a negative mammogram must not discourage biopsy of a clinically suspicious lesion. Electronically Signed By: Kareem romero/esme:05/21/2020 08:39:27 copy to: Denise Stanton letter sent: Normal Exam ACR BI-RADS Category 1: Negative [id number]
== END ==
PROVIDERS: Family Provider Internal Medicine Hematology & Oncology; PCP Internal Medicine; Referring Provider Internal Medicine; Visit Provider Internal Medicine
DX: Z12.31 Encounter for screening mammogram for malignant neoplasm of breast (principal)
CPT/HCPCS: 77063; 77067

== ENCOUNTER 2020-11-08 13:45 | Outpatient (RCR) | payer MEDICARE, OTHER, SELFPAY ==
--- NOTE | 2020-09-05 14:04 | PT.OIE ---
Current Diagnoses Radiculopathy, lumbar region (09/05/20) Past Medical History (Last Reviewed 08/14/20 @ 10:48 by García King MD) CLL (chronic lymphocytic leukemia) Hepatitis B Sick sinus syndrome Past Surgical History (Last Reviewed 08/14/20 @ 10:48 by García King MD) History of removal of Port-a-Cath Hx of eye surgery Hx of hysterectomy Visit Care Team Role Provider Type Denise Stanton PA-C Attending Provider Non-Staff Primary Care Provider Referring Provider Specialty: Internal Medicine Address: [address] [place] [address] Email: [email or web address] Initial Evaluation PT-OP-A Visit Information Start: 08/30/20 16:25 Freq: Status: Active Protocol: Document 09/05/20 12:36 HH (Rec: 09/05/20 13:01 HH [email or web address]) Out-Patient Physical Therapy Visit Information Visit Information Visit Type Initial Evaluation Visit Start Time 11:15 Visit Stop Time 12:00 Total Visit Minutes 45 Visit Number 05/22 Number of IMAGING SYSTEM ADMINISTRATOR Visits 0 Evaluation Information Evaluation Date 09/05/20 Precautions Precautions pacemaker PT-OP-B Current Condition Start: 08/30/20 16:25 Freq: Status: Active Protocol: Document 09/05/20 12:36 HH (Rec: 09/05/20 13:01 HH [email or web address]) Current Condition History of Current Condition Onset Date >30 years ago Current Complaints LBP and R hip pain, difficulty to do yard work History of Current Condition Angelina is a 70 yo female here for her chronic LBP and R hip pain 5-10/11. Pt stated she had it for more than 30 years but it has been getting slightly worse over the past few years. She described her pain as achy pain at R sacral region and radiates laterally at R hip sometimes. Pain tends to get worse if she stays at the bend over position while doing yardwork. She also has sharp pain at anterior hip while moving from bend over position to standing upright. Tylenol, NSAID pain patch/ heat tend to help her pain. Pt has had PT years ago for her shoulders and it was very successful. She also goes to see her chiropractor once a month and she was told she has mild scoliosis. Prior Treatments and Tests x-ray at R hip 05/14/20 = No trauma found but there is a mild degree of hip joint osteoarthritis, symmetric bilaterally. Note is made of lower lumbosacral spine convex leftward scoliosis .centered at L4. Current Functional Impairments (Reported) Functional Limitations- Recreation/ unable to bend over to do yard Hobbies work for a long period of time. Personal Factors Other Personal Factors That May Effect depression Therapy/Recovery PT-OP-C Subjective Start: 08/30/20 16:25 Freq: Status: Active Protocol: Document 09/05/20 12:36 (Rec: 09/05/20 13:01 [email or web address]) Patient Questionnaires Oswestry Low Back Index Oswestry Score 18 Oswestry Impairment 1 to 19% Impaired (Score 1-19) OP-PT Pain Assessment Location R sacral Pain Location Details sacral and R hip Intensity 6 Scale Used Numeric (0 - 10) Description Aching,Pinching Frequency Frequent Pain Aggravating Factors Position,Activity,Exercise, Bending,Lifting Pain Alleviating Factors Inactivity,Lying Supine, Position PT-OP-F Manual Assessment Start: 08/30/20 16:25 Freq: Status: Active Protocol: Document 09/05/20 12:36 (Rec: 09/05/20 13:01 [email or web address]) Manual Assessments Soft Tissue Assessment Soft Tissue Mobility Assessment mild hypertonicity at piriformis and R hip adductors . PT-OP-H Neuro Start: 08/30/20 16:25 Freq: Status: Active Protocol: Document 09/05/20 12:36 (Rec: 09/05/20 13:01 [email or web address]) Sensation Evaluation Gross Sensation Gross Sensation Left UE Impaired Deep Tendon Reflex & Clonus Assessment Deep Tendon Reflex Bilateral Patellar Deep Tendon Reflex 2+ Normal Bilateral Achilles Deep Tendon Reflex 2+ Normal PT-OP-K Range of Motion Start: 08/30/20 16:25 Freq: Status: Active Protocol: Document 09/05/20 12:36 (Rec: 09/05/20 13:01 [email or web address]) Lumbar Spine Range of Motion Lumbar Spine Active Degrees Testing Position Standing Comments toe touch = 8inches from floor (pt feeling tightness at L/S and HS) lateral flexion to R = 17 inches from floor lateral flexion to L = 17 inches from floor extension = shoulder at heels (no discomfort) Hip Goniometric Range of Motion Hip Right Active Hip ROM WFL No Testing Position Supine Straight Leg Raise 40 Internal Rotation 35 External Rotation 60 Comments significant tightness at HS during SLR pain noted at hip joint with end range ER/IR supine figure 4 = lateral knee 6 inches from table Left Active Hip ROM WFL No Testing Position Supine Straight Leg Raise 45 Internal Rotation 40 External Rotation 65 Comments supine figure 4 = lateral knee 4 inches from table Knee Goniometric Range of Motion Knee Right Knee ROM WFL Yes Patient Position Prone Flexion Active (degrees) 90 Left Knee ROM WFL Yes Patient Position Prone Flexion Active (degrees) 115 PT-OP-L Special Tests Start: 08/30/20 16:25 Freq: Status: Active Protocol: Document 09/05/20 12:36 (Rec: 09/05/20 13:01 [email or web address]) Special Tests Hip Special Tests Scour Test Test Results -ve Aníbal Test Results +ve b, R>L Comments R knee flexion at 80-90 degrees L knee flexion at 110 degrees PETER Test Results +ve R Comments reproduce R sacral pain Straight Leg Raise Test Results +ve R Comments significant nerve tension noted (40 degrees on R, 45 on L) PT-OP-M Strength Start: 08/30/20 16:25 Freq: Status: Active Protocol: Document 09/05/20 12:36 (Rec: 09/05/20 13:01 [email or web address]) Hip Strength Hip Manual Muscle Testing Right Flexion (L2) 4- Good- Extension (S1) 4 Good Abduction 4+ Good+ Adduction 4+ Good+ External Rotation 4+ Good+ Internal Rotation 4+ Good+ Left Flexion (L2) 4- Good- Extension (S1) 4 Good Abduction 4+ Good+ External Rotation 4+ Good+ Internal Rotation 4+ Good+ PT-OP-T Assessment and Plan Start: 08/30/20 16:25 Freq: Status: Active Protocol: Document 09/05/20 12:36 (Rec: 09/05/20 13:01 [email or web address]) Physical Therapy Assessment Rehab Potential Rehabilitation Potential Excellent Evaluation Complexity Number of Personal Factors/Comorbidities 1-2 Number of Body Systems Impaired 1-2 Clinical Presentation at Evaluation Stable Impairments Impairments Activity Tolerance,Balance, Functional Activities, Functional Mobility,Gait,Pain, Posture,ROM,Soft Tissue Mobility,Strength,Transfers Goals hep Impairment pt does not have HEP Short Term Goal (STG) pt will be compliant to complete her HEP safely and independently. STG Duration 4 weeks hip mobility Impairment pt shows limited hip mobility Short Term Goal (STG) pt will show improve mobility for figure 4 position which both knees can reach less 4than inches from the table. STG Duration 4 weeks Canine Service Instructor Trainer Goal (LTG) pt will be able to bend over and touch her ankles with knee extended so she can maintain this position during yardwork without compensation through lumbar flexion. LTG Duration 8 weeks activity tolerance Impairment pt tends to have pain during yard work Short Term Goal (STG) pt will be able to complete yard work with pain no more than 4/10 STG Duration 4 weeks Canine Service Instructor Trainer Goal (LTG) pt will be able to complete daily yard work with pain no more than 2/10 LTG Duration 8 weeks oswestry Impairment pt scores 18 on Oswestry Nursing Home Goal (LTG) pt will be able to score <10 on Oswestry to show improvements on quality of life including sleep quality, activity tolerance. LTG Duration 8 weeks Assessment Summary Assessment Angelina is a 70 yo female here for her chronic R sacral and R hip pain. Upon assessment, Her symptoms matches her x-ray findings with signs of hip OA . She presents limited R hip ER, IR and hip flexion. She also shows significant limited hamstrings flexiblity (SLR 40 degrees) which limits her to bend over for her yard work activities. Pt will benefit from skilled therapy to improve her R hip mobility, trunk stability and postural awareness for lifting/ yardwork activities. Physical Therapy Plan Frequency and Duration Frequency of Treatment 1x/Week Duration of Treatment 8 weeks Plan of Care Start Date 09/05/20 Plan of Care End Date 11/04/20 Therapeutic Interventions Therapeutic Interventions Aquatic Therapy,Gait Training, Home Exercise Program,Joint Mobilizations,Manual Therapy, Neuromuscular Re-education, Orthotic/Prosthetic Management ,Patient/Caregiver Education, Self-Care/Home Management,Soft Tissue Mobilization,Taping, Therapeutic Activities, Therapeutic Exercises Next Visit Focus/Plan Next Note Type Treatment Note Next Visit Plan figure 4 stretch piriformis stretch SLR, hamstrings stretch
--- NOTE | 2020-09-05 14:04 | PT.OPPOC ---
Physical, Occupational & Speech Therapy At [facility] Current Diagnoses Radiculopathy, lumbar region (09/05/20) Visit Care Team Role Provider Type Denise Stanton PA-C Attending Provider Non-Staff Primary Care Provider Referring Provider Specialty: Internal Medicine Address: [address] [place] [address], [facility] Email: [email or web address] Plan Of Care PT-OP-T Assessment and Plan Start: 08/30/20 16:25 Freq: Status: Active Protocol: Document 09/05/20 12:36 (Rec: 09/05/20 13:01 [email or web address]) Physical Therapy Assessment Rehab Potential Rehabilitation Potential Excellent Evaluation Complexity Number of Personal Factors/Comorbidities 1-2 Number of Body Systems Impaired 1-2 Clinical Presentation at Evaluation Stable Impairments Impairments Activity Tolerance,Balance, Functional Activities, Functional Mobility,Gait,Pain, Posture,ROM,Soft Tissue Mobility,Strength,Transfers Goals hep Impairment pt does not have HEP Short Term Goal (STG) pt will be compliant to complete her HEP safely and independently. STG Duration 4 weeks hip mobility Impairment pt shows limited hip mobility Short Term Goal (STG) pt will show improve mobility for figure 4 position which both knees can reach less 4than inches from the table. STG Duration 4 weeks Correction Goal (LTG) pt will be able to bend over and touch her ankles with knee extended so she can maintain this position during yardwork without compensation through lumbar flexion. LTG Duration 8 weeks activity tolerance Impairment pt tends to have pain during yard work Short Term Goal (STG) pt will be able to complete yard work with pain no more than 4/10 STG Duration 4 weeks Correction Goal (LTG) pt will be able to complete daily yard work with pain no more than 2/10 LTG Duration 8 weeks oswestry Impairment pt scores 18 on Oswestry Correction Goal (LTG) pt will be able to score <10 on Oswestry to show improvements on quality of life including sleep quality, activity tolerance. LTG Duration 8 weeks Assessment Summary Assessment Angelina is a 70 yo female here for her chronic R sacral and R hip pain. Upon assessment, Her symptoms matches her x-ray findings with signs of hip OA . She presents limited R hip ER, IR and hip flexion. She also shows significant limited hamstrings flexiblity (SLR 40 degrees) which limits her to bend over for her yard work activities. Pt will benefit from skilled therapy to improve her R hip mobility, trunk stability and postural awareness for lifting/ yardwork activities. Physical Therapy Plan Frequency and Duration Frequency of Treatment 1x/Week Duration of Treatment 8 weeks Plan of Care Start Date 09/05/20 Plan of Care End Date 11/04/20 Therapeutic Interventions Therapeutic Interventions Aquatic Therapy,Gait Training, Home Exercise Program,Joint Mobilizations,Manual Therapy, Neuromuscular Re-education, Orthotic/Prosthetic Management ,Patient/Caregiver Education, Self-Care/Home Management,Soft Tissue Mobilization,Taping, Therapeutic Activities, Therapeutic Exercises Next Visit Focus/Plan Next Note Type Treatment Note Next Visit Plan figure 4 stretch piriformis stretch SLR, hamstrings stretch Plan of Care Dates Plan of Care Start Date 09/05/20 Plan of Care End Date 11/04/20 Electronically Signed by: Eddy Candelaria PT 09/05/20 [id number] Please Sign and Return: I have reviewed this Plan of Care and certify that the skilled therapy services above are required to meet the patient?s needs. Physician Signature Date Printed Name and Credentials Clinical Instructor Signature Printed Name and Credentials
--- NOTE | 2020-09-07 12:07 | PT.OTN ---
Current Diagnoses Radiculopathy, lumbar region (09/07/20) Physical Therapy Treatment Note PT-OP-A Visit Information Start: 08/30/20 16:25 Freq: Status: Active Protocol: Document 09/07/20 11:21 (Rec: 09/07/20 12:07 [id number]) Out-Patient Physical Therapy Visit Information Visit Information Visit Type Treatment Note Visit Start Time 11:20 Visit Stop Time 12:04 Total Visit Minutes 44 Visit Number 06/22 Number of [employer] Visits 0 PT-OP-B Current Condition Start: 08/30/20 16:25 Freq: Status: Active Protocol: Document 09/05/20 12:36 HH (Rec: 09/05/20 13:01 [email or web address]) Current Condition History of Current Condition Onset Date >30 years ago Current Complaints LBP and R hip pain, difficulty to do yard work History of Current Condition Angelina is a 70 yo female here for her chronic LBP and R hip pain 5-10/11. Pt stated she had it for more than 30 years but it has been getting slightly worse over the past few years. She described her pain as achy pain at R sacral region and radiates laterally at R hip sometimes. Pain tends to get worse if she stays at the bend over position while doing yardwork. She also has sharp pain at anterior hip while moving from bend over position to standing upright. Tylenol, NSAID pain patch/ heat tend to help her pain. Pt has had PT years ago for her shoulders and it was very successful. She also goes to see her chiropractor once a month and she was told she has mild scoliosis. Prior Treatments and Tests x-ray at R hip 05/14/20 = No trauma found but there is a mild degree of hip joint osteoarthritis, symmetric bilaterally. Note is made of lower lumbosacral spine convex leftward scoliosis .centered at L4. Current Functional Impairments (Reported) Functional Limitations- Recreation/ unable to bend over to do yard Hobbies work for a long period of time. Personal Factors Other Personal Factors That May Effect depression Therapy/Recovery PT-OP-C Subjective Start: 08/30/20 16:25 Freq: Status: Active Protocol: Document 09/07/20 11:21 HH (Rec: 09/07/20 12:07 [id number]) OP-PT Subjective Patient Comments Patient Comments I did get sore after the assessment. But i recovered. Patient Reported Progress Improving PT-OP-F Manual Assessment Start: 08/30/20 16:25 Freq: Status: Active Protocol: Document 09/05/20 12:36 (Rec: 09/05/20 13:01 [email or web address]) Manual Assessments Soft Tissue Assessment Soft Tissue Mobility Assessment mild hypertonicity at piriformis and R hip adductors . PT-OP-H Neuro Start: 08/30/20 16:25 Freq: Status: Active Protocol: Document 09/05/20 12:36 (Rec: 09/05/20 13:01 [email or web address]) Sensation Evaluation Gross Sensation Gross Sensation Left UE Impaired Deep Tendon Reflex & Clonus Assessment Deep Tendon Reflex Bilateral Patellar Deep Tendon Reflex 2+ Normal Bilateral Achilles Deep Tendon Reflex 2+ Normal PT-OP-K Range of Motion Start: 08/30/20 16:25 Freq: Status: Active Protocol: Document 09/05/20 12:36 (Rec: 09/05/20 13:01 [email or web address]) Lumbar Spine Range of Motion Lumbar Spine Active Degrees Testing Position Standing Comments toe touch = 8inches from floor (pt feeling tightness at L/S and HS) lateral flexion to R = 17 inches from floor lateral flexion to L = 17 inches from floor extension = shoulder at heels (no discomfort) Hip Goniometric Range of Motion Hip Right Active Hip ROM WFL No Testing Position Supine Straight Leg Raise 40 Internal Rotation 35 External Rotation 60 Comments significant tightness at HS during SLR pain noted at hip joint with end range ER/IR supine figure 4 = lateral knee 6 inches from table Left Active Hip ROM WFL No Testing Position Supine Straight Leg Raise 45 Internal Rotation 40 External Rotation 65 Comments supine figure 4 = lateral knee 4 inches from table Knee Goniometric Range of Motion Knee Right Knee ROM WFL Yes Patient Position Prone Flexion Active (degrees) 90 Left Knee ROM WFL Yes Patient Position Prone Flexion Active (degrees) 115 PT-OP-L Special Tests Start: 08/30/20 16:25 Freq: Status: Active Protocol: Document 09/05/20 12:36 (Rec: 09/05/20 13:01 [email or web address]) Special Tests Hip Special Tests Scour Test Test Results -ve Aníbal Test Results +ve b, R>L Comments R knee flexion at 80-90 degrees L knee flexion at 110 degrees PETER Test Results +ve R Comments reproduce R sacral pain Straight Leg Raise Test Results +ve R Comments significant nerve tension noted (40 degrees on R, 45 on L) PT-OP-M Strength Start: 08/30/20 16:25 Freq: Status: Active Protocol: Document 09/05/20 12:36 (Rec: 09/05/20 13:01 [email or web address]) Hip Strength Hip Manual Muscle Testing Right Flexion (L2) 4- Good- Extension (S1) 4 Good Abduction 4+ Good+ Adduction 4+ Good+ External Rotation 4+ Good+ Internal Rotation 4+ Good+ Left Flexion (L2) 4- Good- Extension (S1) 4 Good Abduction 4+ Good+ External Rotation 4+ Good+ Internal Rotation 4+ Good+ PT-OP-Q Treatments Start: 08/30/20 16:25 Freq: Status: Active Protocol: Document 09/07/20 11:21 (Rec: 09/07/20 12:07 [id number]) Therapeutic Exercises Supine Exercises hamstrings stretch Reps/Minutes 15secx 4 Comments for HEP piriformis stretch Side right Reps/Minutes 15secx 4 Comments for HEP figure 4 stretch Side right Reps/Minutes 15secx 4 Comments for HEP Sidelying Exercises clamshell Reps/Minutes 8 x2 Comments for HEP Manual Therapy Treatment Soft Tissue Mobilization R TFL Mobilization Type Myofascial Release,Sustained Pressure,Trigger Point Release Intensity/Depth Moderate Body Position Sidelying R glutes Mobilization Type Myofascial Release,Sustained Pressure,Trigger Point Release Intensity/Depth Moderate Body Position Sidelying Joint Mobilizations R hip Direction inferior Grade III Body Position Supine Reps/Duration 10 sec x 5 Comments good relief PT-OP-T Assessment and Plan Start: 08/30/20 16:25 Freq: Status: Active Protocol: Document 09/07/20 11:21 (Rec: 09/07/20 12:07 [id number]) Physical Therapy Assessment Goals hep Impairment pt does not have HEP Short Term Goal (STG) pt will be compliant to complete her HEP safely and independently. STG Duration 4 weeks hip mobility Impairment pt shows limited hip mobility Short Term Goal (STG) pt will show improve mobility for figure 4 position which both knees can reach less 4than inches from the table. STG Duration 4 weeks Group Home Goal (LTG) pt will be able to bend over and touch her ankles with knee extended so she can maintain this position during yardwork without compensation through lumbar flexion. LTG Duration 8 weeks activity tolerance Impairment pt tends to have pain during yard work Short Term Goal (STG) pt will be able to complete yard work with pain no more than 4/10 STG Duration 4 weeks Director [employer] Goal (LTG) pt will be able to complete daily yard work with pain no more than 2/10 LTG Duration 8 weeks oswestry Impairment pt scores 18 on Oswestry Director [employer] Goal (LTG) pt will be able to score <10 on Oswestry to show improvements on quality of life including sleep quality, activity tolerance. LTG Duration 8 weeks Assessment Summary Assessment tx focused on R hip mobility. pt tends to have impingement sensation with FADDIR position . Noticed pt also has L hip drop during stance phase on RLE which indicates poor pelvic control on R hip stabilizers. Physical Therapy Plan Frequency and Duration Frequency of Treatment 1x/Week Duration of Treatment 8 weeks Plan of Care Start Date 09/05/20 Plan of Care End Date 11/04/20 Therapeutic Interventions Therapeutic Interventions Aquatic Therapy,Gait Training, Home Exercise Program,Joint Mobilizations,Manual Therapy, Neuromuscular Re-education, Orthotic/Prosthetic Management ,Patient/Caregiver Education, Self-Care/Home Management,Soft Tissue Mobilization,Taping, Therapeutic Activities, Therapeutic Exercises Discharge Physical Therapy Discharge Reasons Patient Request Next Visit Focus/Plan Next Note Type Treatment Note Next Visit Plan figure 4 stretch piriformis stretch SLR, hamstrings stretch
--- NOTE | 2020-09-11 11:13 | PT.OTN ---
Current Diagnoses Radiculopathy, lumbar region (09/11/20) Physical Therapy Treatment Note PT-OP-A Visit Information Start: 08/30/20 16:25 Freq: Status: Active Protocol: Document 09/11/20 10:30 HH (Rec: 09/11/20 11:13 [id number]) Out-Patient Physical Therapy Visit Information Visit Information Visit Type Treatment Note Visit Start Time 10:32 Visit Stop Time 11:15 Total Visit Minutes 43 Visit Number 3/ Number of [employer] Visits 0 PT-OP-B Current Condition Start: 08/30/20 16:25 Freq: Status: Active Protocol: Document 09/05/20 12:36 HH (Rec: 09/05/20 13:01 [email or web address]) Current Condition History of Current Condition Onset Date >30 years ago Current Complaints LBP and R hip pain, difficulty to do yard work History of Current Condition Angelina is a 70 yo female here for her chronic LBP and R hip pain 5-10/11. Pt stated she had it for more than 30 years but it has been getting slightly worse over the past few years. She described her pain as achy pain at R sacral region and radiates laterally at R hip sometimes. Pain tends to get worse if she stays at the bend over position while doing yardwork. She also has sharp pain at anterior hip while moving from bend over position to standing upright. Tylenol, NSAID pain patch/ heat tend to help her pain. Pt has had PT years ago for her shoulders and it was very successful. She also goes to see her chiropractor once a month and she was told she has mild scoliosis. Prior Treatments and Tests x-ray at R hip 05/14/20 = No trauma found but there is a mild degree of hip joint osteoarthritis, symmetric bilaterally. Note is made of lower lumbosacral spine convex leftward scoliosis .centered at L4. Current Functional Impairments (Reported) Functional Limitations- Recreation/ unable to bend over to do yard Hobbies work for a long period of time. Personal Factors Other Personal Factors That May Effect depression Therapy/Recovery PT-OP-C Subjective Start: 08/30/20 16:25 Freq: Status: Active Protocol: Document 09/11/20 10:30 HH (Rec: 09/11/20 11:13 [id number]) OP-PT Subjective Patient Comments Patient Comments I got a little sore from stretches but im doing okay. Patient Reported Progress Same PT-OP-F Manual Assessment Start: 08/30/20 16:25 Freq: Status: Active Protocol: Document 09/05/20 12:36 (Rec: 09/05/20 13:01 [email or web address]) Manual Assessments Soft Tissue Assessment Soft Tissue Mobility Assessment mild hypertonicity at piriformis and R hip adductors . PT-OP-H Neuro Start: 08/30/20 16:25 Freq: Status: Active Protocol: Document 09/05/20 12:36 (Rec: 09/05/20 13:01 [email or web address]) Sensation Evaluation Gross Sensation Gross Sensation Left UE Impaired Deep Tendon Reflex & Clonus Assessment Deep Tendon Reflex Bilateral Patellar Deep Tendon Reflex 2+ Normal Bilateral Achilles Deep Tendon Reflex 2+ Normal PT-OP-K Range of Motion Start: 08/30/20 16:25 Freq: Status: Active Protocol: Document 09/05/20 12:36 (Rec: 09/05/20 13:01 [email or web address]) Lumbar Spine Range of Motion Lumbar Spine Active Degrees Testing Position Standing Comments toe touch = 8inches from floor (pt feeling tightness at L/S and HS) lateral flexion to R = 17 inches from floor lateral flexion to L = 17 inches from floor extension = shoulder at heels (no discomfort) Hip Goniometric Range of Motion Hip Right Active Hip ROM WFL No Testing Position Supine Straight Leg Raise 40 Internal Rotation 35 External Rotation 60 Comments significant tightness at HS during SLR pain noted at hip joint with end range ER/IR supine figure 4 = lateral knee 6 inches from table Left Active Hip ROM WFL No Testing Position Supine Straight Leg Raise 45 Internal Rotation 40 External Rotation 65 Comments supine figure 4 = lateral knee 4 inches from table Knee Goniometric Range of Motion Knee Right Knee ROM WFL Yes Patient Position Prone Flexion Active (degrees) 90 Left Knee ROM WFL Yes Patient Position Prone Flexion Active (degrees) 115 PT-OP-L Special Tests Start: 08/30/20 16:25 Freq: Status: Active Protocol: Document 09/05/20 12:36 (Rec: 09/05/20 13:01 [email or web address]) Special Tests Hip Special Tests Scour Test Test Results -ve Aníbal Test Results +ve b, R>L Comments R knee flexion at 80-90 degrees L knee flexion at 110 degrees PETER Test Results +ve R Comments reproduce R sacral pain Straight Leg Raise Test Results +ve R Comments significant nerve tension noted (40 degrees on R, 45 on L) PT-OP-M Strength Start: 08/30/20 16:25 Freq: Status: Active Protocol: Document 09/05/20 12:36 HH (Rec: 09/05/20 13:01 HH [email or web address]) Hip Strength Hip Manual Muscle Testing Right Flexion (L2) 4- Good- Extension (S1) 4 Good Abduction 4+ Good+ Adduction 4+ Good+ External Rotation 4+ Good+ Internal Rotation 4+ Good+ Left Flexion (L2) 4- Good- Extension (S1) 4 Good Abduction 4+ Good+ External Rotation 4+ Good+ Internal Rotation 4+ Good+ PT-OP-Q Treatments Start: 08/30/20 16:25 Freq: Status: Active Protocol: Document 09/11/20 10:30 HH (Rec: 09/11/20 11:13 [id number]) Cardio Equipment Recumbent Stepper (Sci-Fit) Duration (Minutes) 6 Resistance 3 Other 0.55 mile Gym Equipment Shuttle Recovery single leg squat Resistance #37 Shuttle Recovery Platform Stable Reps/Time 10 x2 Therapeutic Exercises Supine Exercises bridging Side bilateral Equipment Used yellow band at knees Reps/Minutes 10x 2 supine clamshell Side bilateral Equipment Used yellow band at knees Reps/Minutes 10 x1 hamstrings stretch Reps/Minutes 15secx 4 piriformis stretch Side right Reps/Minutes 15secx 4 figure 4 stretch Side right Reps/Minutes 15secx 4 Sidelying Exercises clamshell Reps/Minutes 8 x2 Manual Therapy Treatment Soft Tissue Mobilization R TFL Mobilization Type Myofascial Release,Sustained Pressure,Trigger Point Release Intensity/Depth Moderate Body Position Sidelying R glutes Mobilization Type Myofascial Release,Sustained Pressure,Trigger Point Release Intensity/Depth Moderate Body Position Sidelying PT-OP-T Assessment and Plan Start: 08/30/20 16:25 Freq: Status: Active Protocol: Document 09/11/20 10:30 HH (Rec: 09/11/20 11:13 [id number]) Physical Therapy Assessment Goals hep Impairment pt does not have HEP Short Term Goal (STG) pt will be compliant to complete her HEP safely and independently. STG Duration 4 weeks hip mobility Impairment pt shows limited hip mobility Short Term Goal (STG) pt will show improve mobility for figure 4 position which both knees can reach less 4than inches from the table. STG Duration 4 weeks Pie Maker Machine Goal (LTG) pt will be able to bend over and touch her ankles with knee extended so she can maintain this position during yardwork without compensation through lumbar flexion. LTG Duration 8 weeks activity tolerance Impairment pt tends to have pain during yard work Short Term Goal (STG) pt will be able to complete yard work with pain no more than 4/10 STG Duration 4 weeks Care Home Goal (LTG) pt will be able to complete daily yard work with pain no more than 2/10 LTG Duration 8 weeks oswestry Impairment pt scores 18 on Oswestry Pie Maker Machine Goal (LTG) pt will be able to score <10 on Oswestry to show improvements on quality of life including sleep quality, activity tolerance. LTG Duration 8 weeks Assessment Summary Assessment Pt shows improved lumbar and hip mobility today with less discomfort. Will add hip strengthening and core stabilization ex next visit. Physical Therapy Plan Frequency and Duration Frequency of Treatment 1x/Week Duration of Treatment 8 weeks Plan of Care Start Date 09/05/20 Plan of Care End Date 11/04/20 Therapeutic Interventions Therapeutic Interventions Aquatic Therapy,Gait Training, Home Exercise Program,Joint Mobilizations,Manual Therapy, Neuromuscular Re-education, Orthotic/Prosthetic Management ,Patient/Caregiver Education, Self-Care/Home Management,Soft Tissue Mobilization,Taping, Therapeutic Activities, Therapeutic Exercises Next Visit Focus/Plan Next Note Type Treatment Note Next Visit Plan figure 4 stretch piriformis stretch SLR, hamstrings stretch
--- NOTE | 2020-09-26 12:02 | PT.OTN ---
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 Pt stated she had it for more than 30 years but it has been getting slightly worse over the past few years. She described her pain as achy pain at R sacral region and radiates laterally at R hip sometimes. Pain tends to get worse if she stays at the bend over position while doing yardwork. She also has sharp pain at anterior hip while moving from bend over position to standing upright. Tylenol, NSAID pain patch/ heat tend to help her pain. Pt has had PT years ago for her shoulders and it was very successful. She also goes to see her chiropractor once a month and she was told she has mild scoliosis. Prior Treatments and Tests x-ray at R hip 05/14/20 = No trauma found but there is a mild degree of hip joint osteoarthritis, symmetric bilaterally. Note is made of lower lumbosacral spine convex leftward scoliosis .centered at L4. Current Functional Impairments (Reported) Functional Limitations- Recreation/ unable to bend over to do yard Hobbies work for a long period of time. Personal Factors Other Personal Factors That May Effect depression Therapy/Recovery PT-OP-C Subjective Start: 08/30/20 16:25 Freq: Status: Active Protocol: Document 09/26/20 11:06 MA (Rec: 09/26/20 12:02 MA [id number]) OP-PT Subjective Patient Comments Patient Comments I haven't been here in awhile . I was doing my exercises at home but then my back started to hurt worse one day so I stopped the exercises. PT-OP-F Manual Assessment Start: 08/30/20 16:25 Freq: Status: Active Protocol: Document 09/05/20 12:36 (Rec: 09/05/20 13:01 [email or web address]) Manual Assessments Soft Tissue Assessment Soft Tissue Mobility Assessment mild hypertonicity at piriformis and R hip adductors . PT-OP-H Neuro Start: 08/30/20 16:25 Freq: Status: Active Protocol: Document 09/05/20 12:36 HH (Rec: 09/05/20 13:01 [email or web address]) Sensation Evaluation Gross Sensation Gross Sensation Left UE Impaired Deep Tendon Reflex & Clonus Assessment Deep Tendon Reflex Bilateral Patellar Deep Tendon Reflex 2+ Normal Bilateral Achilles Deep Tendon Reflex 2+ Normal PT-OP-K Range of Motion Start: 08/30/20 16:25 Freq: Status: Active Protocol: Document 09/05/20 12:36 (Rec: 09/05/20 13:01 [email or web address]) Lumbar Spine Range of Motion Lumbar Spine Active Degrees Testing Position Standing Comments toe touch = 8inches from floor (pt feeling tightness at L/S and HS) lateral flexion to R = 17 inches from floor lateral flexion to L = 17 inches from floor extension = shoulder at heels (no discomfort) Hip Goniometric Range of Motion Hip Right Active Hip ROM WFL No Testing Position Supine Straight Leg Raise 40 Internal Rotation 35 External Rotation 60 Comments significant tightness at HS during SLR pain noted at hip joint with end range ER/IR supine figure 4 = lateral knee 6 inches from table Left Active Hip ROM WFL No Testing Position Supine Straight Leg Raise 45 Internal Rotation 40 External Rotation 65 Comments supine figure 4 = lateral knee 4 inches from table Knee Goniometric Range of Motion Knee Right Knee ROM WFL Yes Patient Position Prone Flexion Active (degrees) 90 Left Knee ROM WFL Yes Patient Position Prone Flexion Active (degrees) 115 PT-OP-L Special Tests Start: 08/30/20 16:25 Freq: Status: Active Protocol: Document 09/05/20 12:36 (Rec: 09/05/20 13:01 [email or web address]) Special Tests Hip Special Tests Scour Test Test Results -ve Aníbal Test Results +ve b, R>L Comments R knee flexion at 80-90 degrees L knee flexion at 110 degrees PETER Test Results +ve R Comments reproduce R sacral pain Straight Leg Raise Test Results +ve R Comments significant nerve tension noted (40 degrees on R, 45 on L) PT-OP-M Strength Start: 08/30/20 16:25 Freq: Status: Active Protocol: Document 09/05/20 12:36 HH (Rec: 09/05/20 13:01 HH [email or web address]) Hip Strength Hip Manual Muscle Testing Right Flexion (L2) 4- Good- Extension (S1) 4 Good Abduction 4+ Good+ Adduction 4+ Good+ External Rotation 4+ Good+ Internal Rotation 4+ Good+ Left Flexion (L2) 4- Good- Extension (S1) 4 Good Abduction 4+ Good+ External Rotation 4+ Good+ Internal Rotation 4+ Good+ PT-OP-Q Treatments Start: 08/30/20 16:25 Freq: Status: Active Protocol: Document 09/26/20 11:06 MA (Rec: 09/26/20 12:02 MA [id number]) Cardio Equipment Recumbent Stepper (Sci-Fit) Duration (Minutes) 6 Resistance 3 Seat Position 5 Other 0.55 mile Therapeutic Exercises Supine Exercises hamstrings stretch Side bilateral Reps/Minutes 2 min Comments with STM piriformis stretch Side bilateral Reps/Minutes 2 min Comments with STM figure 4 stretch Side bilateral Reps/Minutes 2 min Comments with STM Standing Exercises Stretch Standing Exercise Name Gastroc stretch on YOUNG Side bilateral Equipment Used YOUNG Reps/Minutes 60 sec Manual Therapy Treatment Soft Tissue Mobilization STM Body Location sharyn glute med, HS, calves Intensity/Depth Moderate Body Position Supine Comments During passive stretch, adding ankle pumps during gastroc STM Self-Care/Home Management Treatment Education Other Education HEP: Self-STM with rolling pin to sharyn HS and calves, Gastroc stretch on stair PT-OP-T Assessment and Plan Start: 08/30/20 16:25 Freq: Status: Active Protocol: Document 09/26/20 11:06 MA (Rec: 09/26/20 12:02 MA [id number]) Physical Therapy Assessment Goals hep Impairment pt does not have HEP Short Term Goal (STG) pt will be compliant to complete her HEP safely and independently. STG Duration 4 weeks hip mobility Impairment pt shows limited hip mobility Short Term Goal (STG) pt will show improve mobility for figure 4 position which both knees can reach less 4than inches from the table. STG Duration 4 weeks Personal Lines Agent Goal (LTG) pt will be able to bend over and touch her ankles with knee extended so she can maintain this position during yardwork without compensation through lumbar flexion. LTG Duration 8 weeks activity tolerance Impairment pt tends to have pain during yard work Short Term Goal (STG) pt will be able to complete yard work with pain no more than 4/10 STG Duration 4 weeks Personal Lines Agent Goal (LTG) pt will be able to complete daily yard work with pain no more than 2/10 LTG Duration 8 weeks oswestry Impairment pt scores 18 on Oswestry Personal Lines Agent Goal (LTG) pt will be able to score <10 on Oswestry to show improvements on quality of life including sleep quality, activity tolerance. LTG Duration 8 weeks Assessment Summary Assessment Pt had improved ROM after STM during both passive and active stretches. She has decreased ROM L>R in HS and gastrocs, but is tighter in R piriformis and hip flexors. Will add hip flexor stretch, hip strengthening, and core strengthening exercises next session. Added calf stretch on stair and rolling pin to Sharyn HS and calves to HEP. Physical Therapy Plan Frequency and Duration Frequency of Treatment 1x/Week Duration of Treatment 8 weeks Plan of Care Start Date 09/05/20 Plan of Care End Date 11/04/20 Therapeutic Interventions Therapeutic Interventions Aquatic Therapy,Gait Training, Home Exercise Program,Joint Mobilizations,Manual Therapy, Neuromuscular Re-education, Orthotic/Prosthetic Management ,Patient/Caregiver Education, Self-Care/Home Management,Soft Tissue Mobilization,Taping, Therapeutic Activities, Therapeutic Exercises Next Visit Focus/Plan Next Note Type Treatment Note Next Visit Plan Review calf stretch on stair, see how rolling pin went at home, continue with STM during HEP stretches, add hip/core strengthening exercises
--- NOTE | 2020-10-04 16:27 | PT.OTN ---
Current Diagnoses Radiculopathy, lumbar region (10/04/20) Physical Therapy Treatment Note PT-OP-A Visit Information Start: 08/30/20 16:25 Freq: Status: Active Protocol: Document 10/04/20 12:59 HH (Rec: 10/04/20 16:26 [id number]) Out-Patient Physical Therapy Visit Information Visit Information Visit Type Treatment Note Visit Start Time 13:00 Visit Stop Time 13:45 Total Visit Minutes 45 Visit Number 09/19 Number of VISUAL DESIGNER Visits 0 PT-OP-B Current Condition Start: 08/30/20 16:25 Freq: Status: Active Protocol: Document 09/05/20 12:36 HH (Rec: 09/05/20 13:01 [email or web address]) Current Condition History of Current Condition Onset Date >30 years ago Current Complaints LBP and R hip pain, difficulty to do yard work History of Current Condition Angelina is a 70 yo female here for her chronic LBP and R hip pain -10/11. Pt stated she had it for more than 30 years but it has been getting slightly worse over the past few years. She described her pain as achy pain at R sacral region and radiates laterally at R hip sometimes. Pain tends to get worse if she stays at the bend over position while doing yardwork. She also has sharp pain at anterior hip while moving from bend over position to standing upright. Tylenol, NSAID pain patch/ heat tend to help her pain. Pt has had PT years ago for her shoulders and it was very successful. She also goes to see her chiropractor once a month and she was told she has mild scoliosis. Prior Treatments and Tests x-ray at R hip 05/14/20 = No trauma found but there is a mild degree of hip joint osteoarthritis, symmetric bilaterally. Note is made of lower lumbosacral spine convex leftward scoliosis .centered at L4. Current Functional Impairments (Reported) Functional Limitations- Recreation/ unable to bend over to do yard Hobbies work for a long period of time. Personal Factors Other Personal Factors That May Effect depression Therapy/Recovery PT-OP-C Subjective Start: 08/30/20 16:25 Freq: Status: Active Protocol: Document 10/04/20 12:59 HH (Rec: 10/04/20 16:26 [id number]) OP-PT Subjective Patient Comments Patient Comments Im still having pain doing the home stretches but im more mobile now especially doing stretches before walking my dog. PT-OP-F Manual Assessment Start: 08/30/20 16:25 Freq: Status: Active Protocol: Document 09/05/20 12:36 HH (Rec: 09/05/20 13:01 [email or web address]) Manual Assessments Soft Tissue Assessment Soft Tissue Mobility Assessment mild hypertonicity at piriformis and R hip adductors . PT-OP-H Neuro Start: 08/30/20 16:25 Freq: Status: Active Protocol: Document 09/05/20 12:36 HH (Rec: 09/05/20 13:01 [email or web address]) Sensation Evaluation Gross Sensation Gross Sensation Left UE Impaired Deep Tendon Reflex & Clonus Assessment Deep Tendon Reflex Bilateral Patellar Deep Tendon Reflex 2+ Normal Bilateral Achilles Deep Tendon Reflex 2+ Normal PT-OP-K Range of Motion Start: 08/30/20 16:25 Freq: Status: Active Protocol: Document 10/04/20 12:59 HH (Rec: 10/04/20 16:27 [id number]) Lumbar Spine Range of Motion Lumbar Spine Active Degrees Testing Position Standing Comments toe touch = 3inches from floor lateral flexion to R = 14 inches from floor lateral flexion to L = 14 inches from floor extension = shoulder at heels (no discomfort) PT-OP-L Special Tests Start: 08/30/20 16:25 Freq: Status: Active Protocol: Document 09/05/20 12:36 HH (Rec: 09/05/20 13:01 [email or web address]) Special Tests Hip Special Tests Scour Test Test Results -ve Aníbal Test Results +ve b, R>L Comments R knee flexion at 80-90 degrees L knee flexion at 110 degrees PETER Test Results +ve R Comments reproduce R sacral pain Straight Leg Raise Test Results +ve R Comments significant nerve tension noted (40 degrees on R, 45 on L) PT-OP-M Strength Start: 08/30/20 16:25 Freq: Status: Active Protocol: Document 09/05/20 12:36 HH (Rec: 09/05/20 13:01 [email or web address]) Hip Strength Hip Manual Muscle Testing Right Flexion (L2) 4- Good- Extension (S1) 4 Good Abduction 4+ Good+ Adduction 4+ Good+ External Rotation 4+ Good+ Internal Rotation 4+ Good+ Left Flexion (L2) 4- Good- Extension (S1) 4 Good Abduction 4+ Good+ External Rotation 4+ Good+ Internal Rotation 4+ Good+ PT-OP-Q Treatments Start: 08/30/20 16:25 Freq: Status: Active Protocol: Document 10/04/20 12:59 (Rec: 10/04/20 16:26 [id number]) Cardio Equipment Recumbent Bicycle Duration (Minutes) 6 Resistance 6 Seat Position 4 Therapeutic Exercises Supine Exercises LTR Supine Exercise Name open book position Reps/Minutes 5 x2 Comments for HEP pelvic tilt Reps/Minutes 10 x2 Comments for HEP Prone Exercises cat camel Side bilateral Reps/Minutes 10 x 2 Comments for HEP Standing Exercises hip ext / abd Side bilateral Reps/Minutes 8x2 Comments for HEP, cues on no trunk movement Manual Therapy Treatment Soft Tissue Mobilization STM Body Location sharyn glute med, HS, calves Intensity/Depth Moderate Body Position Supine Comments During passive stretch, adding ankle pumps during gastroc STM R TFL Mobilization Type Myofascial Release,Sustained Pressure,Trigger Point Release Intensity/Depth Moderate Body Position Sidelying R glutes Mobilization Type Myofascial Release,Sustained Pressure,Trigger Point Release Intensity/Depth Moderate Body Position Sidelying Joint Mobilizations R hip Direction inferior Grade III Body Position Supine Reps/Duration 10 sec x 5 Comments good relief PT-OP-T Assessment and Plan Start: 08/30/20 16:25 Freq: Status: Active Protocol: Document 10/04/20 12:59 (Rec: 10/04/20 16:26 [id number]) Physical Therapy Assessment Goals hep Impairment pt does not have HEP Short Term Goal (STG) pt will be compliant to complete her HEP safely and independently. STG Duration 4 weeks hip mobility Impairment pt shows limited hip mobility Short Term Goal (STG) pt will show improve mobility for figure 4 position which both knees can reach less 4than inches from the table. STG Duration 4 weeks Retirement Goal (LTG) pt will be able to bend over and touch her ankles with knee extended so she can maintain this position during yardwork without compensation through lumbar flexion. LTG Duration 8 weeks activity tolerance Impairment pt tends to have pain during yard work Short Term Goal (STG) pt will be able to complete yard work with pain no more than 4/10 STG Duration 4 weeks Retirement Goal (LTG) pt will be able to complete daily yard work with pain no more than 2/10 LTG Duration 8 weeks oswestry Impairment pt scores 18 on Oswestry Powder Guard Goal (LTG) pt will be able to score <10 on Oswestry to show improvements on quality of life including sleep quality, activity tolerance. LTG Duration 8 weeks Assessment Summary Assessment Pt overall shows improved trunk and hip mobility on toe touch test. Progree her HEP to lumbar segmental movement and hip strengthening focused. Will review her ex next visit. Physical Therapy Plan Frequency and Duration Frequency of Treatment 1x/Week Duration of Treatment 8 weeks Plan of Care Start Date 09/05/20 Plan of Care End Date 11/04/20 Therapeutic Interventions Therapeutic Interventions Aquatic Therapy,Gait Training, Home Exercise Program,Joint Mobilizations,Manual Therapy, Neuromuscular Re-education, Orthotic/Prosthetic Management ,Patient/Caregiver Education, Self-Care/Home Management,Soft Tissue Mobilization,Taping, Therapeutic Activities, Therapeutic Exercises Discharge Physical Therapy Discharge Reasons Patient Request Next Visit Focus/Plan Next Note Type Treatment Note Next Visit Plan Review calf stretch on stair, see how rolling pin went at home, continue with STM during HEP stretches, add hip/core strengthening exercises
--- NOTE | 2020-10-09 16:24 | PT.OTN ---
Current Diagnoses Radiculopathy, lumbar region (10/09/20) Physical Therapy Treatment Note PT-OP-A Visit Information Start: 08/30/20 16:25 Freq: Status: Active Protocol: Document 10/09/20 13:41 HH (Rec: 10/09/20 16:24 [id number]) Out-Patient Physical Therapy Visit Information Visit Information Visit Type Treatment Note Visit Note pt is 7 mins late Visit Start Time 13:52 Visit Stop Time 14:30 Total Visit Minutes 38 Visit Number 10/20 Number of RESOURCING CONSULTANT Visits 0 PT-OP-B Current Condition Start: 08/30/20 16:25 Freq: Status: Active Protocol: Document 09/05/20 12:36 HH (Rec: 09/05/20 13:01 [email or web address]) Current Condition History of Current Condition Onset Date >30 years ago Current Complaints LBP and R hip pain, difficulty to do yard work History of Current Condition Angelina is a 70 yo female here for her chronic LBP and R hip pain 5-10/11. Pt stated she had it for more than 30 years but it has been getting slightly worse over the past few years. She described her pain as achy pain at R sacral region and radiates laterally at R hip sometimes. Pain tends to get worse if she stays at the bend over position while doing yardwork. She also has sharp pain at anterior hip while moving from bend over position to standing upright. Tylenol, NSAID pain patch/ heat tend to help her pain. Pt has had PT years ago for her shoulders and it was very successful. She also goes to see her chiropractor once a month and she was told she has mild scoliosis. Prior Treatments and Tests x-ray at R hip 05/14/20 = No trauma found but there is a mild degree of hip joint osteoarthritis, symmetric bilaterally. Note is made of lower lumbosacral spine convex leftward scoliosis .centered at L4. Current Functional Impairments (Reported) Functional Limitations- Recreation/ unable to bend over to do yard Hobbies work for a long period of time. Personal Factors Other Personal Factors That May Effect depression Therapy/Recovery PT-OP-C Subjective Start: 08/30/20 16:25 Freq: Status: Active Protocol: Document 10/09/20 13:41 HH (Rec: 10/09/20 16:24 [id number]) OP-PT Subjective Patient Comments Patient Comments I had to take tylenol and used the pain killing cream on my hip today. Im more mobile than before. PT-OP-F Manual Assessment Start: 08/30/20 16:25 Freq: Status: Active Protocol: Document 09/05/20 12:36 HH (Rec: 09/05/20 13:01 [email or web address]) Manual Assessments Soft Tissue Assessment Soft Tissue Mobility Assessment mild hypertonicity at piriformis and R hip adductors . PT-OP-H Neuro Start: 08/30/20 16:25 Freq: Status: Active Protocol: Document 09/05/20 12:36 HH (Rec: 09/05/20 13:01 [email or web address]) Sensation Evaluation Gross Sensation Gross Sensation Left UE Impaired Deep Tendon Reflex & Clonus Assessment Deep Tendon Reflex Bilateral Patellar Deep Tendon Reflex 2+ Normal Bilateral Achilles Deep Tendon Reflex 2+ Normal PT-OP-K Range of Motion Start: 08/30/20 16:25 Freq: Status: Active Protocol: Document 10/04/20 12:59 HH (Rec: 10/04/20 16:27 [id number]) Lumbar Spine Range of Motion Lumbar Spine Active Degrees Testing Position Standing Comments toe touch = 3inches from floor lateral flexion to R = 14 inches from floor lateral flexion to L = 14 inches from floor extension = shoulder at heels (no discomfort) PT-OP-L Special Tests Start: 08/30/20 16:25 Freq: Status: Active Protocol: Document 09/05/20 12:36 HH (Rec: 09/05/20 13:01 [email or web address]) Special Tests Hip Special Tests Scour Test Test Results -ve Aníbal Test Results +ve b, R>L Comments R knee flexion at 80-90 degrees L knee flexion at 110 degrees PETER Test Results +ve R Comments reproduce R sacral pain Straight Leg Raise Test Results +ve R Comments significant nerve tension noted (40 degrees on R, 45 on L) PT-OP-M Strength Start: 08/30/20 16:25 Freq: Status: Active Protocol: Document 09/05/20 12:36 HH (Rec: 09/05/20 13:01 [email or web address]) Hip Strength Hip Manual Muscle Testing Right Flexion (L2) 4- Good- Extension (S1) 4 Good Abduction 4+ Good+ Adduction 4+ Good+ External Rotation 4+ Good+ Internal Rotation 4+ Good+ Left Flexion (L2) 4- Good- Extension (S1) 4 Good Abduction 4+ Good+ External Rotation 4+ Good+ Internal Rotation 4+ Good+ PT-OP-Q Treatments Start: 08/30/20 16:25 Freq: Status: Active Protocol: Document 10/09/20 13:41 (Rec: 10/09/20 16:24 [id number]) Therapeutic Exercises Supine Exercises LTR Supine Exercise Name open book position Reps/Minutes 5 x2 Comments for HEP pelvic tilt Reps/Minutes 10 x2 Comments for HEP bridging Resistance red band at knees Reps/Minutes 3 sec hold at top x8 x 2 Prone Exercises bird dog Prone Exercise Name knee bent with hip extension Reps/Minutes 8 x2 Comments cues on neutral spine. cat camel Side bilateral Reps/Minutes 10 x 2 Comments for HEP Sidelying Exercises open book Reps/Minutes 5 x2 Comments replace piriformis stretch Standing Exercises hip hinge Side bilateral Reps/Minutes 6 x2 Comments cues on neutral spine hip ext / abd Side bilateral Reps/Minutes 8x2 Comments for HEP, cues on no trunk movement Manual Therapy Treatment Soft Tissue Mobilization STM Body Location sharyn glute med, HS, calves Intensity/Depth Moderate Body Position Supine Comments During passive stretch, adding ankle pumps during gastroc STM R TFL Mobilization Type Myofascial Release,Sustained Pressure,Trigger Point Release Intensity/Depth Moderate Body Position Sidelying PT-OP-T Assessment and Plan Start: 08/30/20 16:25 Freq: Status: Active Protocol: Document 10/09/20 13:41 (Rec: 10/09/20 16:24 [id number]) Physical Therapy Assessment Goals hep Impairment pt does not have HEP Short Term Goal (STG) pt will be compliant to complete her HEP safely and independently. STG Duration 4 weeks hip mobility Impairment pt shows limited hip mobility Short Term Goal (STG) pt will show improve mobility for figure 4 position which both knees can reach less 4than inches from the table. STG Duration 4 weeks Search Strategist Goal (LTG) pt will be able to bend over and touch her ankles with knee extended so she can maintain this position during yardwork without compensation through lumbar flexion. LTG Duration 8 weeks activity tolerance Impairment pt tends to have pain during yard work Short Term Goal (STG) pt will be able to complete yard work with pain no more than 4/10 STG Duration 4 weeks Skilled Nursing Goal (LTG) pt will be able to complete daily yard work with pain no more than 2/10 LTG Duration 8 weeks oswestry Impairment pt scores 18 on Oswestry Search Strategist Goal (LTG) pt will be able to score <10 on Oswestry to show improvements on quality of life including sleep quality, activity tolerance. LTG Duration 8 weeks Assessment Summary Assessment Angelina andre session well with a combination of lumbar ROM and hip strengthening therex. However, pt did state she tends to get fatigue easily with ex in upright position. Will progressively adjust her ex intensity. Physical Therapy Plan Frequency and Duration Frequency of Treatment 1x/Week Duration of Treatment 8 weeks Plan of Care Start Date 09/05/20 Plan of Care End Date 11/04/20 Therapeutic Interventions Therapeutic Interventions Aquatic Therapy,Gait Training, Home Exercise Program,Joint Mobilizations,Manual Therapy, Neuromuscular Re-education, Orthotic/Prosthetic Management ,Patient/Caregiver Education, Self-Care/Home Management,Soft Tissue Mobilization,Taping, Therapeutic Activities, Therapeutic Exercises Next Visit Focus/Plan Next Note Type Treatment Note Next Visit Plan Review calf stretch on stair, see how rolling pin went at home, continue with STM during HEP stretches, add hip/core strengthening exercises
--- NOTE | 2020-10-17 11:19 | PT.OTN ---
Current Diagnoses Radiculopathy, lumbar region (10/17/20) Physical Therapy Treatment Note PT-OP-A Visit Information Start: 08/30/20 16:25 Freq: Status: Active Protocol: Document 10/17/20 10:23 HH (Rec: 10/17/20 11:19 [id number]) Out-Patient Physical Therapy Visit Information Visit Information Visit Type Treatment Note Visit Start Time 10:30 Visit Stop Time 11:15 Total Visit Minutes 45 Visit Number 11/19 Number of OIL PROSPECTING OBSERVER Visits 0 PT-OP-B Current Condition Start: 08/30/20 16:25 Freq: Status: Active Protocol: Document 09/05/20 12:36 HH (Rec: 09/05/20 13:01 [email or web address]) Current Condition History of Current Condition Onset Date >30 years ago Current Complaints LBP and R hip pain, difficulty to do yard work History of Current Condition Angelina is a 70 yo female here for her chronic LBP and R hip pain 5-10/11. Pt stated she had it for more than 30 years but it has been getting slightly worse over the past few years. She described her pain as achy pain at R sacral region and radiates laterally at R hip sometimes. Pain tends to get worse if she stays at the bend over position while doing yardwork. She also has sharp pain at anterior hip while moving from bend over position to standing upright. Tylenol, NSAID pain patch/ heat tend to help her pain. Pt has had PT years ago for her shoulders and it was very successful. She also goes to see her chiropractor once a month and she was told she has mild scoliosis. Prior Treatments and Tests x-ray at R hip 05/14/20 = No trauma found but there is a mild degree of hip joint osteoarthritis, symmetric bilaterally. Note is made of lower lumbosacral spine convex leftward scoliosis .centered at L4. Current Functional Impairments (Reported) Functional Limitations- Recreation/ unable to bend over to do yard Hobbies work for a long period of time. Personal Factors Other Personal Factors That May Effect depression Therapy/Recovery PT-OP-C Subjective Start: 08/30/20 16:25 Freq: Status: Active Protocol: Document 10/17/20 10:23 HH (Rec: 10/17/20 11:19 [id number]) OP-PT Subjective Patient Comments Patient Comments I still have the surrounding hip pain from front and back. But i do notice if i do the exercise before my morning work, i feel better Patient Reported Progress Improving PT-OP-F Manual Assessment Start: 08/30/20 16:25 Freq: Status: Active Protocol: Document 09/05/20 12:36 HH (Rec: 09/05/20 13:01 [email or web address]) Manual Assessments Soft Tissue Assessment Soft Tissue Mobility Assessment mild hypertonicity at piriformis and R hip adductors . PT-OP-H Neuro Start: 08/30/20 16:25 Freq: Status: Active Protocol: Document 09/05/20 12:36 HH (Rec: 09/05/20 13:01 [email or web address]) Sensation Evaluation Gross Sensation Gross Sensation Left UE Impaired Deep Tendon Reflex & Clonus Assessment Deep Tendon Reflex Bilateral Patellar Deep Tendon Reflex 2+ Normal Bilateral Achilles Deep Tendon Reflex 2+ Normal PT-OP-K Range of Motion Start: 08/30/20 16:25 Freq: Status: Active Protocol: Document 10/04/20 12:59 HH (Rec: 10/04/20 16:27 [id number]) Lumbar Spine Range of Motion Lumbar Spine Active Degrees Testing Position Standing Comments toe touch = 3inches from floor lateral flexion to R = 14 inches from floor lateral flexion to L = 14 inches from floor extension = shoulder at heels (no discomfort) PT-OP-L Special Tests Start: 08/30/20 16:25 Freq: Status: Active Protocol: Document 09/05/20 12:36 HH (Rec: 09/05/20 13:01 [email or web address]) Special Tests Hip Special Tests Scour Test Test Results -ve Aníbal Test Results +ve b, R>L Comments R knee flexion at 80-90 degrees L knee flexion at 110 degrees PETER Test Results +ve R Comments reproduce R sacral pain Straight Leg Raise Test Results +ve R Comments significant nerve tension noted (40 degrees on R, 45 on L) PT-OP-M Strength Start: 08/30/20 16:25 Freq: Status: Active Protocol: Document 09/05/20 12:36 HH (Rec: 09/05/20 13:01 [email or web address]) Hip Strength Hip Manual Muscle Testing Right Flexion (L2) 4- Good- Extension (S1) 4 Good Abduction 4+ Good+ Adduction 4+ Good+ External Rotation 4+ Good+ Internal Rotation 4+ Good+ Left Flexion (L2) 4- Good- Extension (S1) 4 Good Abduction 4+ Good+ External Rotation 4+ Good+ Internal Rotation 4+ Good+ PT-OP-Q Treatments Start: 08/30/20 16:25 Freq: Status: Active Protocol: Document 10/17/20 10:23 HH (Rec: 10/17/20 11:19 [id number]) Therapeutic Exercises Supine Exercises bridging Resistance red band at knees Reps/Minutes 3 sec hold at top x10 x 2 Prone Exercises bird dog Prone Exercise Name knee bent with hip extension Reps/Minutes 8 x2 Comments cues on neutral spine. cat camel Side bilateral Reps/Minutes 10 x 2 Comments for HEP Sidelying Exercises open book Reps/Minutes 5 x2 Comments replace piriformis stretch Standing Exercises squat Side bilateral Equipment Used red band at knees hip ext / abd Side bilateral Reps/Minutes 8x2 Comments for HEP, cues on no trunk movement Manual Therapy Treatment Soft Tissue Mobilization STM Body Location sharyn glute med, HS, calves Intensity/Depth Moderate Body Position Supine Comments During passive stretch, adding ankle pumps during gastroc STM R TFL Mobilization Type Myofascial Release,Sustained Pressure,Trigger Point Release Intensity/Depth Moderate Body Position Sidelying R glutes Mobilization Type Myofascial Release,Sustained Pressure,Trigger Point Release Intensity/Depth Moderate Body Position Sidelying Joint Mobilizations R hip Direction inferior Grade III Body Position Supine Reps/Duration 10 sec x 5 Comments good relief PT-OP-T Assessment and Plan Start: 08/30/20 16:25 Freq: Status: Active Protocol: Document 10/17/20 10:23 (Rec: 10/17/20 11:19 [id number]) Physical Therapy Assessment Goals hep Impairment pt does not have HEP Short Term Goal (STG) pt will be compliant to complete her HEP safely and independently. STG Duration 4 weeks hip mobility Impairment pt shows limited hip mobility Short Term Goal (STG) pt will show improve mobility for figure 4 position which both knees can reach less 4than inches from the table. STG Duration 4 weeks Optical Manager Goal (LTG) pt will be able to bend over and touch her ankles with knee extended so she can maintain this position during yardwork without compensation through lumbar flexion. LTG Duration 8 weeks activity tolerance Impairment pt tends to have pain during yard work Short Term Goal (STG) pt will be able to complete yard work with pain no more than 4/10 STG Duration 4 weeks Optical Manager Goal (LTG) pt will be able to complete daily yard work with pain no more than 2/10 LTG Duration 8 weeks oswestry Impairment pt scores 18 on Oswestry Retirement Goal (LTG) pt will be able to score <10 on Oswestry to show improvements on quality of life including sleep quality, activity tolerance. LTG Duration 8 weeks Assessment Summary Assessment Angelina continues to show good lumbar ROM, and improved stability. Tx focused on hip strengthening ex and she does need cues to engage her core. Physical Therapy Plan Frequency and Duration Frequency of Treatment 1x/Week Duration of Treatment 8 weeks Plan of Care Start Date 09/05/20 Plan of Care End Date 11/04/20 Therapeutic Interventions Therapeutic Interventions Aquatic Therapy,Gait Training, Home Exercise Program,Joint Mobilizations,Manual Therapy, Neuromuscular Re-education, Orthotic/Prosthetic Management ,Patient/Caregiver Education, Self-Care/Home Management,Soft Tissue Mobilization,Taping, Therapeutic Activities, Therapeutic Exercises Next Visit Focus/Plan Next Note Type Treatment Note Next Visit Plan Review calf stretch on stair, see how rolling pin went at home, continue with STM during HEP stretches, add hip/core strengthening exercises
--- NOTE | 2020-10-30 13:54 | PT-OP ANOTE ---
pt called in and cancelled appt d/t not feeling well.
--- NOTE | 2020-11-01 14:33 | PT.OTN ---
Current Diagnoses Radiculopathy, lumbar region (11/01/20) Physical Therapy Treatment Note PT-OP-A Visit Information Start: 08/30/20 16:25 Freq: Status: Active Protocol: Document 11/01/20 13:47 HH (Rec: 11/01/20 14:33 [id number]) Out-Patient Physical Therapy Visit Information Visit Information Visit Type Treatment Note Visit Start Time 13:47 Visit Stop Time 14:30 Total Visit Minutes 43 Visit Number 12/20 Number of VAULT MANAGER Visits 0 PT-OP-B Current Condition Start: 08/30/20 16:25 Freq: Status: Active Protocol: Document 09/05/20 12:36 HH (Rec: 09/05/20 13:01 [email or web address]) Current Condition History of Current Condition Onset Date >30 years ago Current Complaints LBP and R hip pain, difficulty to do yard work History of Current Condition Angelina is a 70 yo female here for her chronic LBP and R hip pain 5-10/11. Pt stated she had it for more than 30 years but it has been getting slightly worse over the past few years. She described her pain as achy pain at R sacral region and radiates laterally at R hip sometimes. Pain tends to get worse if she stays at the bend over position while doing yardwork. She also has sharp pain at anterior hip while moving from bend over position to standing upright. Tylenol, NSAID pain patch/ heat tend to help her pain. Pt has had PT years ago for her shoulders and it was very successful. She also goes to see her chiropractor once a month and she was told she has mild scoliosis. Prior Treatments and Tests x-ray at R hip 05/14/20 = No trauma found but there is a mild degree of hip joint osteoarthritis, symmetric bilaterally. Note is made of lower lumbosacral spine convex leftward scoliosis .centered at L4. Current Functional Impairments (Reported) Functional Limitations- Recreation/ unable to bend over to do yard Hobbies work for a long period of time. Personal Factors Other Personal Factors That May Effect depression Therapy/Recovery PT-OP-C Subjective Start: 08/30/20 16:25 Freq: Status: Active Protocol: Document 11/01/20 13:47 HH (Rec: 11/01/20 14:33 [id number]) OP-PT Subjective Patient Comments Patient Comments Polly been having digestive problems lately. I do notice im overall more mobile since started PT. PT-OP-F Manual Assessment Start: 08/30/20 16:25 Freq: Status: Active Protocol: Document 09/05/20 12:36 HH (Rec: 09/05/20 13:01 [email or web address]) Manual Assessments Soft Tissue Assessment Soft Tissue Mobility Assessment mild hypertonicity at piriformis and R hip adductors . PT-OP-H Neuro Start: 08/30/20 16:25 Freq: Status: Active Protocol: Document 09/05/20 12:36 HH (Rec: 09/05/20 13:01 [email or web address]) Sensation Evaluation Gross Sensation Gross Sensation Left UE Impaired Deep Tendon Reflex & Clonus Assessment Deep Tendon Reflex Bilateral Patellar Deep Tendon Reflex 2+ Normal Bilateral Achilles Deep Tendon Reflex 2+ Normal PT-OP-K Range of Motion Start: 08/30/20 16:25 Freq: Status: Active Protocol: Document 10/04/20 12:59 HH (Rec: 10/04/20 16:27 [id number]) Lumbar Spine Range of Motion Lumbar Spine Active Degrees Testing Position Standing Comments toe touch = 3inches from floor lateral flexion to R = 14 inches from floor lateral flexion to L = 14 inches from floor extension = shoulder at heels (no discomfort) PT-OP-L Special Tests Start: 08/30/20 16:25 Freq: Status: Active Protocol: Document 09/05/20 12:36 HH (Rec: 09/05/20 13:01 [email or web address]) Special Tests Hip Special Tests Scour Test Test Results -ve Aníbal Test Results +ve b, R>L Comments R knee flexion at 80-90 degrees L knee flexion at 110 degrees PETER Test Results +ve R Comments reproduce R sacral pain Straight Leg Raise Test Results +ve R Comments significant nerve tension noted (40 degrees on R, 45 on L) PT-OP-M Strength Start: 08/30/20 16:25 Freq: Status: Active Protocol: Document 09/05/20 12:36 HH (Rec: 09/05/20 13:01 [email or web address]) Hip Strength Hip Manual Muscle Testing Right Flexion (L2) 4- Good- Extension (S1) 4 Good Abduction 4+ Good+ Adduction 4+ Good+ External Rotation 4+ Good+ Internal Rotation 4+ Good+ Left Flexion (L2) 4- Good- Extension (S1) 4 Good Abduction 4+ Good+ External Rotation 4+ Good+ Internal Rotation 4+ Good+ PT-OP-Q Treatments Start: 08/30/20 16:25 Freq: Status: Active Protocol: Document 11/01/20 13:47 HH (Rec: 11/01/20 14:33 [id number]) Gym Equipment Shuttle Recovery single leg squat Resistance #37 Shuttle Recovery Platform Stable Reps/Time 12 x2 Therapeutic Exercises Supine Exercises SLR Side bilateral Reps/Minutes 8x2 Comments R weakness >L Sidelying Exercises hip abd Side bilateral Reps/Minutes 8x2 Standing Exercises step up Equipment Used 6 step Reps/Minutes 10 x2 hip ext / abd Standing Exercise Name extension Side bilateral Reps/Minutes 8x2 Comments for HEP, cues on no trunk movement Manual Therapy Treatment Soft Tissue Mobilization STM Body Location hip flexors Intensity/Depth Moderate Body Position Supine Comments significant pain reduced after . R TFL Mobilization Type Myofascial Release,Sustained Pressure,Trigger Point Release Intensity/Depth Moderate Body Position Sidelying PT-OP-T Assessment and Plan Start: 08/30/20 16:25 Freq: Status: Active Protocol: Document 11/01/20 13:47 HH (Rec: 11/01/20 14:33 [id number]) Physical Therapy Assessment Goals hep Impairment pt does not have HEP Short Term Goal (STG) pt will be compliant to complete her HEP safely and independently. STG Duration 4 weeks hip mobility Impairment pt shows limited hip mobility Short Term Goal (STG) pt will show improve mobility for figure 4 position which both knees can reach less 4than inches from the table. STG Duration 4 weeks Area Director Of Home Health Sales Goal (LTG) pt will be able to bend over and touch her ankles with knee extended so she can maintain this position during yardwork without compensation through lumbar flexion. LTG Duration 8 weeks activity tolerance Impairment pt tends to have pain during yard work Short Term Goal (STG) pt will be able to complete yard work with pain no more than 4/10 STG Duration 4 weeks Area Director Of Home Health Sales Goal (LTG) pt will be able to complete daily yard work with pain no more than 2/10 LTG Duration 8 weeks oswestry Impairment pt scores 18 on Oswestry Area Director Of Home Health Sales Goal (LTG) pt will be able to score <10 on Oswestry to show improvements on quality of life including sleep quality, activity tolerance. LTG Duration 8 weeks Assessment Summary Assessment Focused on hip strengthening therex today and she thai session very well. She does notice weakness R>L. Physical Therapy Plan Frequency and Duration Frequency of Treatment 1x/Week Duration of Treatment 8 weeks Plan of Care Start Date 09/05/20 Plan of Care End Date 11/04/20 Therapeutic Interventions Therapeutic Interventions Aquatic Therapy,Gait Training, Home Exercise Program,Joint Mobilizations,Manual Therapy, Neuromuscular Re-education, Orthotic/Prosthetic Management ,Patient/Caregiver Education, Self-Care/Home Management,Soft Tissue Mobilization,Taping, Therapeutic Activities, Therapeutic Exercises Next Visit Focus/Plan Next Note Type Treatment Note Next Visit Plan Review calf stretch on stair, see how rolling pin went at home, continue with STM during HEP stretches, add hip/core strengthening exercises
--- NOTE | 2020-11-08 14:26 | PT.OPPOC ---
Physical, Occupational & Speech Therapy At [facility] Current Diagnoses Radiculopathy, lumbar region (11/08/20) Visit Care Team Role Provider Type Denise Stanton PA-C Attending Provider Non-Staff Primary Care Provider Referring Provider Specialty: Internal Medicine Address: [address] [place] [address], [facility] Email: [email or web address] Plan Of Care PT-OP-T Assessment and Plan Start: 08/30/20 16:25 Freq: Status: Active Protocol: Document 11/08/20 13:04 HH (Rec: 11/08/20 14:26 HH [id number]) Physical Therapy Assessment Goals hep Impairment pt does not have HEP Short Term Goal (STG) 7/8 pt has been compliant to complete her HEP safely and independently. STG Duration 4 weeks hip mobility Impairment pt shows limited hip mobility Short Term Goal (STG) pt will show improve mobility for figure 4 position which both knees can reach less 4than inches from the table. STG Duration 4 weeks Floor Steward/Stewardess Goal (LTG) 7/8 goal met pt is able to bend over and touch her ankles with knee extended so she can maintain this position during yardwork without compensation through lumbar flexion. LTG Duration 8 weeks activity tolerance Impairment pt tends to have pain during yard work Short Term Goal (STG) pt will be able to complete yard work with pain no more than 4/10 STG Duration 4 weeks Nursing Home Goal (LTG) 7/8 goal met pt is able to complete daily yard work with pain no more than 2/10 LTG Duration 8 weeks oswestry Impairment pt scores 18 on Oswestry Nursing Home Goal (LTG) pt will be able to score <10 on Oswestry to show improvements on quality of life including sleep quality, activity tolerance. LTG Duration 8 weeks Progress Towards Goals Progress Towards Goals Goals Met Assessment Summary Assessment Pt stated she has had good progress since she started PT. She is able to establish a routine with ROM ex and low impact strnegtehning for pain management. She agrees to be DC from PT today. Physical Therapy Plan Frequency and Duration Frequency of Treatment 1x/Week Duration of Treatment 8 weeks Plan of Care Start Date 11/08/20 Plan of Care End Date 11/08/20 Therapeutic Interventions Therapeutic Interventions Aquatic Therapy,Gait Training, Home Exercise Program,Joint Mobilizations,Manual Therapy, Neuromuscular Re-education, Orthotic/Prosthetic Management ,Patient/Caregiver Education, Self-Care/Home Management,Soft Tissue Mobilization,Taping, Therapeutic Activities, Therapeutic Exercises Discharge Physical Therapy Discharge Reasons Goals Met Next Visit Focus/Plan Next Note Type Treatment Note Next Visit Plan Review calf stretch on stair, see how rolling pin went at home, continue with STM during HEP stretches, add hip/core strengthening exercises Plan of Care Dates Plan of Care Start Date 11/08/20 Plan of Care End Date 11/08/20 Electronically Signed by: Eddy Candelaria, PT 11/08/20 1907 Please Sign and Return: I have reviewed this Plan of Care and certify that the skilled therapy services above are required to meet the patient?s needs. Physician Signature Date Printed Name and Credentials Clinical Instructor Signature Printed Name and Credentials
--- NOTE | 2020-11-08 14:27 | PT.OPDS ---
Current Diagnoses Radiculopathy, lumbar region (11/08/20) Visit Care Team Role Provider Type Denise Stanton PA-C Attending Provider Non-Staff Primary Care Provider Referring Provider Specialty: Internal Medicine Address: [address] [place] [address], [facility] Email: [email or web address] Visit Number Visit Number 01/20 Discharge Summary PT-OP-B Current Condition Start: 08/30/20 16:25 Freq: Status: Active Protocol: Document 09/05/20 12:36 HH (Rec: 09/05/20 13:01 [email or web address]) Current Condition History of Current Condition Onset Date >30 years ago Current Complaints LBP and R hip pain, difficulty to do yard work History of Current Condition Angelina is a 70 yo female here for her chronic LBP and R hip pain 5-10/11. Pt stated she had it for more than 30 years but it has been getting slightly worse over the past few years. She described her pain as achy pain at R sacral region and radiates laterally at R hip sometimes. Pain tends to get worse if she stays at the bend over position while doing yardwork. She also has sharp pain at anterior hip while moving from bend over position to standing upright. Tylenol, NSAID pain patch/ heat tend to help her pain. Pt has had PT years ago for her shoulders and it was very successful. She also goes to see her chiropractor once a month and she was told she has mild scoliosis. Prior Treatments and Tests x-ray at R hip 05/14/20 = No trauma found but there is a mild degree of hip joint osteoarthritis, symmetric bilaterally. Note is made of lower lumbosacral spine convex leftward scoliosis .centered at L4. Current Functional Impairments (Reported) Functional Limitations- Recreation/ unable to bend over to do yard Hobbies work for a long period of time. Personal Factors Other Personal Factors That May Effect depression Therapy/Recovery PT-OP-C Subjective Start: 08/30/20 16:25 Freq: Status: Active Protocol: Document 11/08/20 13:04 HH (Rec: 11/08/20 14:26 [id number]) OP-PT Subjective Patient Comments Patient Comments Polly been doing gardening work and my back and hip are doing pretty well. Patient Reported Progress Improving PT-OP-F Manual Assessment Start: 08/30/20 16:25 Freq: Status: Active Protocol: Document 09/05/20 12:36 HH (Rec: 09/05/20 13:01 [email or web address]) Manual Assessments Soft Tissue Assessment Soft Tissue Mobility Assessment mild hypertonicity at piriformis and R hip adductors . PT-OP-H Neuro Start: 08/30/20 16:25 Freq: Status: Active Protocol: Document 09/05/20 12:36 HH (Rec: 09/05/20 13:01 [email or web address]) Sensation Evaluation Gross Sensation Gross Sensation Left UE Impaired Deep Tendon Reflex & Clonus Assessment Deep Tendon Reflex Bilateral Patellar Deep Tendon Reflex 2+ Normal Bilateral Achilles Deep Tendon Reflex 2+ Normal PT-OP-K Range of Motion Start: 08/30/20 16:25 Freq: Status: Active Protocol: Document 10/04/20 12:59 HH (Rec: 10/04/20 16:27 [id number]) Lumbar Spine Range of Motion Lumbar Spine Active Degrees Testing Position Standing Comments toe touch = 3inches from floor lateral flexion to R = 14 inches from floor lateral flexion to L = 14 inches from floor extension = shoulder at heels (no discomfort) PT-OP-L Special Tests Start: 08/30/20 16:25 Freq: Status: Active Protocol: Document 09/05/20 12:36 HH (Rec: 09/05/20 13:01 [email or web address]) Special Tests Hip Special Tests Scour Test Test Results -ve Aníbal Test Results +ve b, R>L Comments R knee flexion at 80-90 degrees L knee flexion at 110 degrees PETER Test Results +ve R Comments reproduce R sacral pain Straight Leg Raise Test Results +ve R Comments significant nerve tension noted (40 degrees on R, 45 on L) PT-OP-M Strength Start: 08/30/20 16:25 Freq: Status: Active Protocol: Document 09/05/20 12:36 HH (Rec: 09/05/20 13:01 [email or web address]) Hip Strength Hip Manual Muscle Testing Right Flexion (L2) 4- Good- Extension (S1) 4 Good Abduction 4+ Good+ Adduction 4+ Good+ External Rotation 4+ Good+ Internal Rotation 4+ Good+ Left Flexion (L2) 4- Good- Extension (S1) 4 Good Abduction 4+ Good+ External Rotation 4+ Good+ Internal Rotation 4+ Good+ PT-OP-T Assessment and Plan Start: 08/30/20 16:25 Freq: Status: Active Protocol: Document 11/08/20 13:04 HH (Rec: 11/08/20 14:26 HH [id number]) Physical Therapy Assessment Goals hep Impairment pt does not have HEP Short Term Goal (STG) 11/08 pt has been compliant to complete her HEP safely and independently. STG Duration 4 weeks hip mobility Impairment pt shows limited hip mobility Short Term Goal (STG) pt will show improve mobility for figure 4 position which both knees can reach less 4than inches from the table. STG Duration 4 weeks Sole Stainer Goal (LTG) 7/8 goal met pt is able to bend over and touch her ankles with knee extended so she can maintain this position during yardwork without compensation through lumbar flexion. LTG Duration 8 weeks activity tolerance Impairment pt tends to have pain during yard work Short Term Goal (STG) pt will be able to complete yard work with pain no more than 4/10 STG Duration 4 weeks [facility] Goal (LTG) 7/8 goal met pt is able to complete daily yard work with pain no more than 2/10 LTG Duration 8 weeks oswestry Impairment pt scores 18 on Oswestry [facility] Goal (LTG) pt will be able to score <10 on Oswestry to show improvements on quality of life including sleep quality, activity tolerance. LTG Duration 8 weeks Progress Towards Goals Progress Towards Goals Goals Met Assessment Summary Assessment Pt stated she has had good progress since she started PT. She is able to establish a routine with ROM ex and low impact strnegtehning for pain management. She agrees to be DC from PT today. Physical Therapy Plan Frequency and Duration Frequency of Treatment 1x/Week Duration of Treatment 8 weeks Plan of Care Start Date 11/08/20 Plan of Care End Date 11/08/20 Therapeutic Interventions Therapeutic Interventions Aquatic Therapy,Gait Training, Home Exercise Program,Joint Mobilizations,Manual Therapy, Neuromuscular Re-education, Orthotic/Prosthetic Management ,Patient/Caregiver Education, Self-Care/Home Management,Soft Tissue Mobilization,Taping, Therapeutic Activities, Therapeutic Exercises Discharge Physical Therapy Discharge Reasons Goals Met Next Visit Focus/Plan Next Note Type Treatment Note Next Visit Plan Review calf stretch on stair, see how rolling pin went at home, continue with STM during HEP stretches, add hip/core strengthening exercises
== END 2020-11-08 14:44 | disposition home or self-care (01) ==
LOC: PHYS 13:45
PROVIDERS: PCP Physician Assistant; Referring Provider Physician Assistant; Visit Provider Physician Assistant
DX: M54.16 Radiculopathy, lumbar region (principal)
CPT/HCPCS: 97110; 97140; 97161; 97535

== ENCOUNTER → 2020-11-20 10:31 | Outpatient (CLI) | payer MEDICARE, OTHER, SELFPAY ==
[2020-11-21 15:36] LABS: Fecal Immunochemical Test Negative (Negative)
== END ==
PROVIDERS: PCP Physician Assistant; Referring Provider Internal Medicine Gastroenterology; Visit Provider Internal Medicine Gastroenterology
DX: Z12.11 Encounter for screening for malignant neoplasm of colon (principal)
CPT/HCPCS: 82274

== ENCOUNTER → 2021-04-05 12:16 | Outpatient (CLI) | payer MEDICARE, OTHER, SELFPAY ==
--- NOTE | 2021-04-05 12:19 | DI.US.S_ITS ---
PROCEDURE: US PERIPH VENOUS LOW EXTREM RT INDICATIONS: HEPATITIS,RIGHT LEG PAIN AND SWELLING TECHNIQUE: Real-time imaging, as well as color and pulse Doppler interrogation, were performed of the lower extremity deep veins from the inguinal ligament to the popliteal fossa. COMPARISON: None. FINDINGS: The common femoral, femoral and popliteal veins are normally compressible, and free of intraluminal thrombus. Color and pulse Doppler demonstrate normal phasic intraluminal flow. There is normal augmentation response to distal compression maneuver. IMPRESSION: Negative for deep venous thrombosis. Dictated by: Esteban Louis M.D. on 04/05/2021 at 12:23 Approved by: Esteban Louis M.D. on 04/05/2021 at 12:25
--- NOTE | 2021-04-05 12:19 | DI.US.S_ITS ---
PROCEDURE: US ABDOMEN COMPLETE INDICATIONS: HEPATITIS,RIGHT LEG PAIN AND SWELLING TECHNIQUE: Real-time scanning was performed of the abdominal and retroperitoneal organs, with image documentation. COMPARISON: [facility], , US ABDOMEN LIMITED, 08/30/2019, 17:58. FINDINGS: Liver: Liver is normal in size and homogeneous in echotexture. The portal vein is patent. Gallbladder: No gallbladder wall thickening or pericholecystic fluid. No sonographic Vu sign. Small shadowing gallstones are seen. Biliary ducts: Intrahepatic bile ducts are non-dilated. Extrahepatic bile duct caliber measures 6.7 mm. Normal is 6-7 mm or less in diameter, or 10 mm or less post-cholecystectomy. Pancreas: Visualized portions of the pancreas are sonographically normal. Spleen: Spleen is normal in size and homogeneous in echotexture. Kidneys: Kidneys are normal in size and echotexture. Right kidney measures 10.1 cm long; left kidney measures 10.3 cm long. No hydronephrosis or nephrolithiasis. No solid masses. Aorta: Visualized aorta is normal in caliber at less than 3 cm. Iliacs: Proximal common iliac arteries are normal in caliber at less than 2.5 cm. IVC: Intrahepatic inferior vena cava is patent. Miscellaneous: No free abdominal fluid. IMPRESSION: 1. Cholelithiasis. Dictated by: Chadwick Valenzuela M.D. on 04/05/2021 at 14:38 Approved by: Chadwick Valenzuela M.D. on 04/05/2021 at 14:40
== END ==
PROVIDERS: PCP Internal Medicine; Referring Provider Internal Medicine Gastroenterology; Visit Provider Internal Medicine Gastroenterology
DX: M79.661 Pain in right lower leg (principal); B19.10 Unspecified viral hepatitis B without hepatic coma; K80.20 Calculus of gallbladder without cholecystitis without obstruction; M79.89 Other specified soft tissue disorders
CPT/HCPCS: 76700; 93971

== ENCOUNTER → 2021-07-17 14:27 | Outpatient (CLI) | payer MEDICARE, OTHER, SELFPAY ==
--- NOTE | 2021-07-17 14:31 | DI.MG.S_ITS ---
BILATERAL DIGITAL SCREENING MAMMOGRAM 3D/2D WITH CAD: 07/17/2021 CLINICAL: Routine screening. Comparison is made to exams dated: 05/19/2020 mammogram, 06/04/2018 mammogram, and 04/18/2009 mammogram - [facility]. The tissue of both breasts is heterogeneously dense. This may lower the sensitivity of mammography. Current study was also evaluated with a Computer Aided Detection (CAD) system. No significant masses, calcifications, or other findings are seen in either breast. There has been no significant interval change. IMPRESSION: NEGATIVE There is no mammographic evidence of malignancy. A 1 year screening mammogram is recommended. This exam was interpreted at Station ID: [id number]. NOTE: For mammograms, a report in lay terms will be sent to the patient. Approximately 15% of breast malignancies will not be visualized mammographically. In the management of a palpable breast mass, a negative mammogram must not discourage biopsy of a clinically suspicious lesion. Electronically Signed By: Silas sims/esme:07/17/2021 15:51:15 copy to: Denise Stanton letter sent: Normal Exam ACR BI-RADS Category 1: Negative [id number]
== END ==
PROVIDERS: PCP Internal Medicine; Referring Provider Internal Medicine; Visit Provider Internal Medicine
DX: Z12.31 Encounter for screening mammogram for malignant neoplasm of breast (principal)
CPT/HCPCS: 77063; 77067

== ENCOUNTER → 2021-07-19 14:01 | Outpatient (CLI) | payer MEDICARE, OTHER, SELFPAY ==
[2021-07-19 14:57] LABS: Add Manual Diff / Slide Review YES; Hematocrit 34.3 % (36-46); Hemoglobin 12.2 g/dL (12.0-16.0); Mean Corpuscular HGB Conc 35.6 % (30-36); Mean Corpuscular Hemoglobin 30.4 PG (26-34); Mean Corpuscular Volume 85.4 fL (80-100); Platelet Count 154 X10^3/uL (150-400); Red Blood Cell Count 4.02 X10^6/uL (4.0-5.2); Red Cell Distribution Width 14.5 % (11.6-14.8); White Blood Cell Count 8.4 X10^3/uL (4.5-11.0)
[2021-07-19 15:22] LABS: Neutrophils Absolute Manual 3108 /uL (3000-5900); RBC Morphology Normal Morphology; Total Cells Counted 100
[2021-07-19 16:07] LABS: Alanine Aminotransferase 24 IU/L (<35); Albumin 4.6 g/dL (3.5-5.0); Albumin Globulin Ratio 2.1 (1.0-2.8); Alkaline Phosphatase 62 U/L (38-126); Aspartate Aminotransferase 34 IU/L (14-36); BUN Creatinine Ratio 14.8 (6-22); Bilirubin Total 0.5 mg/dL (0.2-1.3); Blood Urea Nitrogen 12 mg/dL (7-17); Calcium 9.2 mg/dL (8.4-10.2); Carbon Dioxide 26 mmol/L (22-32); Chloride 102 mmol/L (98-107); Estimated Glomerular Filt Rate > 60.0 mL/min (>60); Globulin 2.2 g/dL (1.7-4.1); Glucose 93 mg/dL (80-110); HEMOLYSIS < 15 (0-50); Potassium 4.2 mmol/L (3.4-5.1); Sodium 133 mmol/L (137-145); Total Protein 6.8 g/dL (6.3-8.2)
== END ==
PROVIDERS: PCP Internal Medicine; Referring Provider Internal Medicine Hematology & Oncology; Visit Provider Internal Medicine Hematology & Oncology
DX: C91.10 Chronic lymphocytic leukemia of B-cell type not having achieved remission (principal)
CPT/HCPCS: 36415; 80053; 85007; 85025

== ENCOUNTER → 2021-09-07 13:01 | Outpatient (CLI) | payer MEDICARE, OTHER, SELFPAY ==
--- NOTE | 2021-09-07 13:04 | DI.RAD.S_ITS ---
PROCEDURE: XR ANKLE LT MIN 3V INDICATIONS: ARTHRALGIA TECHNIQUE: 3 views of the ankle were acquired. COMPARISON: None. FINDINGS: Bones: No fractures or dislocations. Ankle mortise is normally aligned. No suspicious bony lesions. Mild degenerative joint disease. Calcaneal spurring. Soft tissues: No tibiotalar joint effusion. Achilles tendon appears normal. IMPRESSION: 1. Mild degenerative joint disease. 2. Calcaneal spurring. Dictated by: Nichole Moreno M.D. on 09/07/2021 at 13:25 Approved by: Nichole Moreno M.D. on 09/07/2021 at 13:25
== END ==
PROVIDERS: PCP Internal Medicine; Referring Provider Internal Medicine; Visit Provider Internal Medicine
DX: M19.072 Primary osteoarthritis, left ankle and foot (principal); M77.32 Calcaneal spur, left foot; M25.50 Pain in unspecified joint
CPT/HCPCS: 73610

== ENCOUNTER → 2022-03-24 11:51 | Outpatient (CLI) | payer MEDICARE, OTHER, SELFPAY ==
[2022-03-24 16:45] LABS: Alanine Aminotransferase 15 IU/L (<35); Albumin 4.2 g/dL (3.5-5.0); Albumin Globulin Ratio 1.9 (1.0-2.8); Alkaline Phosphatase 109 U/L (38-126); Aspartate Aminotransferase 23 IU/L (14-36); Bilirubin Total 0.3 mg/dL (0.2-1.3); Bilirubin Unconjugated 0.4 mg/dL (0.0-1.1); Globulin 2.2 g/dL (1.7-4.1); HEMOLYSIS < 15 (0-50); Total Protein 6.4 g/dL (6.3-8.2)
[2022-03-24 17:20] LABS: Hepatitis B Surface Antigen POSITIVE s/c (NEGATIVE)
[2022-03-25 12:08] LABS: Alpha Fetoprotein <1.8 ng/mL (0.0-9.2)
[2022-03-25 22:07] LABS: Hepatitis BE Antigen Positive (Negative)
[2022-03-28 20:07] LABS: Hepatitis B Virus <10 IU/mL (.)
[2022-03-31 07:12] LABS: Hepatitis Be Antibody Negative (Negative)
== END ==
PROVIDERS: PCP Internal Medicine; Referring Provider Internal Medicine Gastroenterology; Visit Provider Internal Medicine Gastroenterology
DX: B18.1 Chronic viral hepatitis B without delta-agent (principal); B19.10 Unspecified viral hepatitis B without hepatic coma
CPT/HCPCS: 36415; 80076; 82105; 86707; 87340; 87350

== ENCOUNTER → 2022-04-01 11:18 | Outpatient (CLI) | payer MEDICARE, OTHER, SELFPAY ==
[2022-04-01 12:18] LABS: Influenza A - CEPHEID Flu A NEGATIVE (NEGATIVE); Influenza B - CEPHEID Flu B NEGATIVE (NEGATIVE); Respiratory Syncytial Virus Negative (Negative)
[2022-04-01 12:20] LABS: COVID-19 CEPHEID 4-PLEX PCR Negative (Negative)
== END ==
PROVIDERS: PCP Internal Medicine; Visit Provider Physician Assistant Medical
DX: R05.1 Acute cough (principal); R06.2 Wheezing
CPT/HCPCS: 0241U

== ENCOUNTER → 2022-04-30 11:18 | Outpatient (CLI) | payer MEDICARE, OTHER, SELFPAY ==
[2022-04-30 12:28] LABS: Hematocrit 28.4 % (36-46); Hemoglobin 8.6 g/dL (12.0-16.0); Mean Corpuscular HGB Conc 30.5 % (30-36); Mean Corpuscular Hemoglobin 31.7 PG (26-34); Mean Corpuscular Volume 104.2 fL (80-100); Platelet Count 186 X10^3/uL (150-400); Red Blood Cell Count 2.72 X10^6/uL (4.0-5.2); Red Cell Distribution Width 18.4 % (11.6-14.8)
[2022-04-30 12:32] LABS: Add Manual Diff / Slide Review YES
[2022-04-30 12:40] LABS: White Blood Cell Count 128.8 X10^3/uL (4.5-11.0)
[2022-04-30 12:53] LABS: Neutrophils Absolute Manual 1288 /uL (3000-5900); RBC Morphology Normal Morphology; Total Cells Counted 100
[2022-04-30 13:03] LABS: Alanine Aminotransferase 18 IU/L (<35); Albumin 4.3 g/dL (3.5-5.0); Alkaline Phosphatase 90 U/L (38-126); Aspartate Aminotransferase 21 IU/L (14-36); BUN Creatinine Ratio 21.6 (6-22); Bilirubin Total 0.4 mg/dL (0.2-1.3); Blood Urea Nitrogen 16 mg/dL (7-17); Calcium 9.1 mg/dL (8.4-10.2); Carbon Dioxide 26 mmol/L (22-32); Chloride 97 mmol/L (98-107); Estimated Glomerular Filt Rate > 60 mL/min (>60); Globulin 2.1 g/dL (1.7-4.1); Glucose 56 mg/dL (80-110); HEMOLYSIS < 15 (0-50); Potassium 4.4 mmol/L (3.4-5.1); Sodium 132 mmol/L (137-145); Total Protein 6.4 g/dL (6.3-8.2)
== END ==
PROVIDERS: PCP Internal Medicine; Referring Provider Internal Medicine Hematology & Oncology; Visit Provider Internal Medicine Hematology & Oncology
DX: C91.10 Chronic lymphocytic leukemia of B-cell type not having achieved remission (principal)
CPT/HCPCS: 36415; 80053; 85007; 85025

== ENCOUNTER → 2022-07-29 14:43 | Outpatient (CLI) | payer MEDICARE, OTHER, SELFPAY ==
--- NOTE | 2022-07-29 | DI.MG.S_ITS ---
BILATERAL DIGITAL SCREENING MAMMOGRAM 3D/2D WITH CAD: 07/29/2022 CLINICAL: Routine screening. Comparison is made to exams dated: 07/17/2021 mammogram, 05/19/2020 mammogram, and 06/04/2018 mammogram - [facility]. Both breasts are extremely dense, which lowers the sensitivity of mammography (category d />75% glandular tissue). Current study was also evaluated with a Computer Aided Detection (CAD) system. No significant masses, calcifications, or other findings are seen in either breast. There has been no significant interval change. IMPRESSION: NEGATIVE There is no mammographic evidence of malignancy. A 1 year screening mammogram is recommended. Based on the Tyrer Cuzick model (a risk assessment model) the patient's lifetime risk is 6.0% and her 10 year risk is 5.0%. According to the ACR, ACS, and NCCN guidelines, an annual breast MRI exam along with mammogram is recommended if the patient's lifetime risk is 20% or greater. This exam was interpreted at Station ID: [id number]. NOTE: For mammograms, a report in lay terms will be sent to the patient. Approximately 15% of breast malignancies will not be visualized mammographically. In the management of a palpable breast mass, a negative mammogram must not discourage biopsy of a clinically suspicious lesion. Electronically Signed By: Joby haddad/esme:07/29/2022 15:52:29 copy to: LEAH HERNANDEZ letter sent: Normal Exam ACR BI-RADS Category 1: Negative [id number]
== END ==
PROVIDERS: PCP Internal Medicine; Referring Provider Internal Medicine Gastroenterology; Visit Provider Internal Medicine Gastroenterology
DX: Z12.31 Encounter for screening mammogram for malignant neoplasm of breast (principal)
CPT/HCPCS: 77063; 77067

== ENCOUNTER → 2022-07-31 14:02 | Outpatient (CLI) | payer MEDICARE, OTHER, SELFPAY ==
--- NOTE | 2022-07-31 | DI.US.S_ITS ---
PROCEDURE: US ABDOMEN LIMITED INDICATIONS: CHRONIC HEPATITIS B WITHOUT DELTA AGENT TECHNIQUE: Real-time scanning was performed of the abdominal and retroperitoneal organs, with image documentation. COMPARISON: [facility], US, US ABDOMEN COMPLETE, 04/05/2021, 12:37. FINDINGS: Liver: Liver is normal in size and homogeneous in echotexture. Gallbladder: There is no gallstone. No gallbladder wall thickening or pericholecystic fluid. No sonographic Vu's sign. Biliary ducts: Intrahepatic bile ducts are non-dilated. Extrahepatic bile duct caliber measures 2.4 mm. Normal is 6-7 mm or less in diameter, or 10 mm or less post-cholecystectomy. Pancreas: Visualized portions of the pancreas are sonographically normal. IMPRESSION: Unremarkable ultrasound examination of right upper quadrant abdomen. No discrete hepatic lesion is seen. Dictated by: Kleber Ding M.D. on 07/31/2022 at 16:30 Approved by: Kleber Ding M.D. on 07/31/2022 at 16:31
== END ==
PROVIDERS: PCP Internal Medicine; Referring Provider Internal Medicine Gastroenterology; Visit Provider Internal Medicine Gastroenterology
DX: B18.1 Chronic viral hepatitis B without delta-agent (principal)
CPT/HCPCS: 76705

== ENCOUNTER → 2022-08-18 12:48 | Outpatient (CLI) | payer MEDICARE, OTHER, SELFPAY ==
[2022-08-18 13:30] LABS: Influenza A - CEPHEID Flu A NEGATIVE (NEGATIVE); Influenza B - CEPHEID Flu B NEGATIVE (NEGATIVE); Respiratory Syncytial Virus Negative (Negative)
[2022-08-18 13:53] LABS: COVID-19 CEPHEID 4-PLEX PCR Negative (Negative)
== END ==
PROVIDERS: PCP Internal Medicine; Visit Provider Nurse Practitioner Family
DX: R05.1 Acute cough (principal)
CPT/HCPCS: 0241U

== ENCOUNTER → 2022-08-18 12:55 | Outpatient (CLI) | payer MEDICARE, OTHER, SELFPAY ==
--- NOTE | 2022-08-18 13:02 | DI.RAD.S_ITS ---
PROCEDURE: XR CHEST 2V INDICATIONS: Cough TECHNIQUE: 2 views of the chest were acquired. COMPARISON: [facility], CHEST 2 VIEW, 02/11/2017, 10:34. [facility], CHEST 2 VIEW, 01/20/2017, 15:02. FINDINGS: Surgical changes and devices: None. Lungs and pleura: Streaky right middle and left middle airspace opacities, presumably atelectasis. Mediastinum: Mediastinal contours are normal. Heart size is normal. Bones and chest wall: No suspicious bony abnormalities. Soft tissues appear unremarkable. IMPRESSION: No consolidation to suggest pneumonia. Dictated by: Hermilo Rocha M.D. on 08/18/2022 at 15:04 Approved by: Hermilo Rocha M.D. on 08/18/2022 at 15:04
== END ==
PROVIDERS: PCP Internal Medicine; Referring Provider Nurse Practitioner Family; Visit Provider Nurse Practitioner Family
DX: R05.1 Acute cough (principal)
CPT/HCPCS: 0241U; 71046

== ENCOUNTER → 2022-09-08 16:43 | Outpatient (CLI) | payer MEDICARE, OTHER, SELFPAY ==
--- NOTE | 2022-09-08 16:46 | DI.RAD.S_ITS ---
PROCEDURE: XR CHEST 2V INDICATIONS: Cough and SOB TECHNIQUE: 2 views of the chest were acquired. COMPARISON: [facility], CR, XR CHEST 2V, 08/18/2022, 13:03. FINDINGS: Surgical changes and devices: Left chest wall pacemaker leads are in the region of right atrium and right ventricle. Lungs and pleura: Mild pulmonary vascular congestion is seen. No definite focal infiltrate. No pleural effusions or pneumothorax. Mediastinum: Mediastinal contours are normal. Heart size is enlarged. Bones and chest wall: No suspicious bony abnormalities. Soft tissues appear unremarkable. IMPRESSION: Cardiomegaly and mild congestion. No definite focal infiltrate. No pleural effusion or pneumothorax. Dictated by: Kleber Ding M.D. on 09/08/2022 at 17:00 Approved by: Kleber Ding M.D. on 09/08/2022 at 17:01
== END ==
PROVIDERS: PCP Internal Medicine; Referring Provider Physician Assistant; Visit Provider Physician Assistant
DX: R06.00 Dyspnea, unspecified (principal); I51.7 Cardiomegaly; R09.89 Other specified symptoms and signs involving the circulatory and respiratory systems
CPT/HCPCS: 71046

== ENCOUNTER 2022-09-10 15:14 | Emergency (ER) | payer MEDICARE, OTHER, SELFPAY ==
[2022-09-10 15:39] VITALS: BP 107/54; PULSE 87; RESP 20; TEMP 36.8; O2SAT 97; BMI 20.5
--- NOTE | 2022-09-10 17:13 | PC.NURSE ---
registration called and reported patient left to go home.
== END 2022-09-10 17:12 | disposition left against medical advice (07) ==
PROVIDERS: Emergency Provider Emergency Medicine; PCP Internal Medicine
DX: R06.02 Shortness of breath (principal)
CPT/HCPCS: 99281

== ENCOUNTER → 2023-03-10 16:04 | Outpatient (CLI) | payer MEDICARE, OTHER, SELFPAY ==
[2023-03-10 17:59] LABS: Hematocrit 33.7 % (36-46); Hemoglobin 11.3 g/dL (12.0-16.0); Mean Corpuscular HGB Conc 33.5 % (30-36); Mean Corpuscular Volume 98.5 fL (80-100); Platelet Count 154 X10^3/uL (150-400); Red Blood Cell Count 3.43 X10^6/uL (4.0-5.2); Red Cell Distribution Width 14.6 % (11.6-14.8); White Blood Cell Count 13.8 X10^3/uL (4.5-11.0)
[2023-03-10 18:00] LABS: Add Manual Diff / Slide Review YES
[2023-03-10 18:06] LABS: Alanine Aminotransferase 15 IU/L (<35); Albumin Globulin Ratio 1.9 (1.0-2.8); Alkaline Phosphatase 59 U/L (38-126); Aspartate Aminotransferase 23 IU/L (14-36); BUN Creatinine Ratio 16.7 (6-22); Bilirubin Total 0.4 mg/dL (0.2-1.3); Blood Urea Nitrogen 12 mg/dL (7-17); Calcium 9.1 mg/dL (8.4-10.2); Carbon Dioxide 25 mmol/L (22-32); Chloride 99 mmol/L (98-107); Estimated Glomerular Filt Rate > 60 mL/min (>60); Globulin 2.1 g/dL (1.7-4.1); Glucose 71 mg/dL (80-110); HEMOLYSIS < 15 (0-50); Lactate Dehydrogenase 207 U/L (120-246); Potassium 4.2 mmol/L (3.4-5.1); Sodium 129 mmol/L (137-145); Total Protein 6.1 g/dL (6.3-8.2)
[2023-03-10 18:36] LABS: Neutrophils Absolute Manual 3036 /uL (3000-5900); Total Cells Counted 100
[2023-03-10 18:37] LABS: Platelet Estimate Adequate on smear; RBC Morphology Normal Morphology
== END ==
PROVIDERS: PCP Internal Medicine; Referring Provider Internal Medicine Hematology & Oncology; Visit Provider Internal Medicine Hematology & Oncology
DX: C91.10 Chronic lymphocytic leukemia of B-cell type not having achieved remission (principal)
CPT/HCPCS: 36415; 80053; 83615; 85007; 85025

== ENCOUNTER → 2023-09-18 15:38 | Outpatient (CLI) | payer MEDICARE, OTHER, SELFPAY ==
[2023-09-18 16:52] LABS: Hematocrit 34.7 % (36-46); Hemoglobin 11.3 g/dL (12.0-16.0); Mean Corpuscular HGB Conc 32.5 % (30-36); Mean Corpuscular Hemoglobin 31.4 PG (26-34); Mean Corpuscular Volume 96.5 fL (80-100); Platelet Count 161 X10^3/uL (150-400); Red Blood Cell Count 3.59 X10^6/uL (4.0-5.2); Red Cell Distribution Width 14.4 % (11.6-14.8)
[2023-09-18 17:18] LABS: Add Manual Diff / Slide Review YES; White Blood Cell Count 59.4 X10^3/uL (4.5-11.0)
[2023-09-18 17:48] LABS: Alanine Aminotransferase 14 IU/L (<35); Albumin 4.2 g/dL (3.5-5.0); Albumin Globulin Ratio 1.9 (1.0-2.8); Alkaline Phosphatase 100 U/L (38-126); Aspartate Aminotransferase 31 IU/L (14-36); BUN Creatinine Ratio 18.9 (6-22); Bilirubin Total 0.4 mg/dL (0.2-1.3); Blood Urea Nitrogen 17 mg/dL (7-17); Calcium 8.7 mg/dL (8.4-10.2); Carbon Dioxide 27 mmol/L (22-32); Chloride 100 mmol/L (98-107); Estimated Glomerular Filt Rate > 60 mL/min (>60); Globulin 2.2 g/dL (1.7-4.1); Glucose 112 mg/dL (80-110); HEMOLYSIS < 15 (0-50); Lactate Dehydrogenase 354 U/L (120-246); Potassium 4.3 mmol/L (3.4-5.1); Sodium 134 mmol/L (137-145); Total Protein 6.4 g/dL (6.3-8.2)
[2023-09-18 18:24] LABS: Neutrophils Absolute Manual 3564 /uL (3000-5900); RBC Morphology Normal Morphology; Total Cells Counted 100
[2023-09-19 08:17] LABS: IGA <5 mg/dL (64-422); IGG 716 mg/dL (586-1602); IGM 64 mg/dL (26-217)
== END ==
PROVIDERS: PCP Family Medicine; Referring Provider Internal Medicine Hematology & Oncology; Visit Provider Internal Medicine Hematology & Oncology
DX: C91.10 Chronic lymphocytic leukemia of B-cell type not having achieved remission (principal)
CPT/HCPCS: 36415; 80053; 82784; 83615; 85007; 85025